=== PATIENT | female | born 1980 | race Hispanic/Latino ===

== ENCOUNTER 2016-09-11 21:00 | Inpatient (IN) | payer MEDICAID, OTHER ==
--- NOTE | 2016-09-11 21:17 | C.PDOC ---
History Of Present Illness Pt here for heroin detox. last used a few hours ago. No f/c/n/v. Non suicidal Time Seen by Provider: 09/11/16 21:10 Chief Complaint (Nursing): Substance Abuse History Per: Patient History/Exam Limitations: no limitations Onset/Duration Of Symptoms: Hrs Current Symptoms Are (Timing): Still Present Suicide/Self Injury Attempted (Context): None Modifying Factor(s): Other (heroin) Severity: None Pain Scale Rating Of: 0 Associated Symptoms: Anxiety Involuntary Hold By: None Recent travel outside of the [place]: No Additional History Per: Patient Past Medical History Reviewed: Historical Data, Nursing Documentation, Vital Signs Vital Signs: Last Vital Signs Temp 97.9 F 09/11/16 21:02 Pulse 89 09/11/16 21:02 Resp 16 09/11/16 21:02 BP 125/79 09/11/16 21:02 Pulse Ox 98 09/11/16 21:34 - Medical History PMH: Hepatitis (Hep C from using someone elses needle.) Denies: Diabetes, HIV, HTN, Seizures, Sexually Transmitted Disease - [facility] DETOXIFICATION SERVICES FOR SUBSTANCE ABUSE TREATMENT (06/06/15) Family History: States: No Known Family Hx - Social History Hx Alcohol Use: No Hx Substance Use: Yes (Heroine and cocaine) - Immunization History Hx Tetanus Toxoid Vaccination: No Hx Influenza Vaccination: No Hx Pneumococcal Vaccination: No Review Of Systems Constitutional: Negative for: Fever, Chills Eyes: Negative for: Redness ENT: Negative for: Nose Congestion Cardiovascular: Negative for: Chest Pain Respiratory: Negative for: Shortness of Breath Gastrointestinal: Negative for: Nausea, Vomiting Genitourinary: Negative for: Frequency Musculoskeletal: Negative for: Back Pain Skin: Positive for: Lesions (left lat leg, healing ulcers(denies skin popping)) Neurological: Negative for: Weakness Psych: Positive for: Anxiety Physical Exam - Physical Exam Appears: Non-toxic Skin: Warm, Dry Head: Normacephalic Eye(s): bilateral: Normal Inspection Oral Mucosa: Moist Neck: Supple Chest: Symmetrical Cardiovascular: Rhythm Regular Respiratory: No Rales, No Rhonchi, No Wheezing Gastrointestinal/Abdominal: Soft, No Tenderness Back: Normal Inspection Extremity: Normal ROM Extremity: Bilateral: Atraumatic, No Pedal Edema, Normal Color And Temperature, Normal ROM Neurological/Psych: Oriented x3, Normal Speech, Normal Cognition Gait: Steady ED Course And Treatment - Laboratory Results Result Diagrams: 09/11/16 21:55 09/11/16 21:55 O2 Sat by Pulse Oximetry: 98 Pulse Ox Interpretation: Normal Disposition Discussed With Dr.: Key Wise Comment: accepted the pt onher service at 12:01 AM Doctor Will See Patient In The: Hospital Counseled Patient/Family Regarding: Studies Performed, Diagnosis - Disposition Disposition: HOSPITALIZED Disposition Time: 21:17 Condition: FAIR - POA Present On Arrival: Poor Glycemic Control - Clinical Impression Clinical Impression: Drug abuse Decision To Admit - Pt Status Changed To: Hospital Disposition Of: Inpatient - Admit Certification Admit to Inpatient:: After my assessment, the patient will require hospitalization for at least two midnights. This is because of the severity of symptoms shown, intensity of services needed, and/or the medical risk in this patient being treated as an outpatient. - InPatient: Physician Admission Certification: I certify that this patient requires 2 or more midnights of care for the following reason:: After my assessment, the patient will require hospitalization for at least two midnights. This is because of the severity of symptoms shown, intensity of services needed, and/or the medical risk in this patient being treated as an outpatient. - . Bed Request Type: Detox Admitting Physician: Key Wise Patient Diagnosis: Drug abuse, Drug dependence
[2016-09-11 22:02] LABS: BASO # 0.1 K/uL (0.0-0.2); BASO % 1.1 % (0.0-2.0); EOS # 0.1 K/uL (0.0-0.7); HEMATOCRIT 36.3 % (34.0-47.0); MEAN CELL VOLUME 80.9 fL (81.0-99.0); MEAN CORPUSCULAR HEMOGLOBIN 26.7 pg (27.0-31.0); MEAN CORPUSCULAR HGB CONC 32.9 g/dL (33.0-37.0); MEAN PLATELET VOLUME 7.4 fL (7.2-11.7); MONO # 0.2 K/uL (0.0-0.8); MONO % 4.8 % (0.0-10.0); NRBC % 0.1 % (0.0-2.0); RED CELL DISTRIBUTION WIDTH 13.9 % (11.5-14.5)
[2016-09-11 22:03] LABS: RBC URINE 4 /hpf (0-3); URINE BACTERIA OCC (<OCC); URINE BILIRUBIN NEGATIVE (NEGATIVE); URINE BLOOD NEGATIVE (NEGATIVE); URINE COLOR Yellow (YELLOW); URINE GLUCOSE (UA) NORMAL (Normal); URINE KETONE TRACE mg/dL (NEGATIVE); URINE LEUKOCYTE ESTERASE NEG Leu/uL (Negative); URINE PROTEIN 1+ mg/dL (NEGATIVE); URINE UROBILINOGEN NORMAL mg/dL (0.2-1.0); WBC URINE 4 /hpf (0-5)
[2016-09-11 22:07] LABS: CHLORIDE 101 mmol/L (98-107); POTASSIUM 3.4 mmol/L (3.6-5.2); SODIUM 140 mmol/L (132-148)
[2016-09-11 22:09] LABS: GFR AFRICAN-AMERICAN > 60
[2016-09-11 22:10] LABS: ALB/GLOB RATIO 1.2 (1.0-2.1); ALKALINE PHOSPHATASE 69 U/L (38-126); ALT/SGPT 19 U/L (9-52); AST/SGOT 31 U/L (14-36); BILIRUBIN,TOTAL 0.6 mg/dL (0.2-1.3); BLOOD UREA NITROGEN 10 mg/dL (7-17); CALCIUM 8.7 mg/dl (8.6-10.4); CARBON DIOXIDE 26 mmol/L (22-30); GLUCOSE,RANDOM 110 mg/dL (65-105); TOTAL PROTEIN 7.7 g/dL (6.3-8.3)
[2016-09-11 22:11] LABS: ALCOHOL SERUM < 10 mg/dl (0-10)
[2016-09-12] MEDS ORDERED: Aluminum Hydroxide/Magnesium Hydroxide Susp (30 mL) PO PRN (00:40)
[2016-09-12 13:20] LABS: RBC URINE 3 /hpf (0-3); URINE BILIRUBIN NEGATIVE (NEGATIVE); URINE BLOOD NEGATIVE (NEGATIVE); URINE COLOR Yellow (YELLOW); URINE GLUCOSE (UA) NORMAL (Normal); URINE KETONE NEGATIVE (NEGATIVE); URINE LEUKOCYTE ESTERASE TRACE Leu/uL (Negative); URINE PROTEIN NEGATIVE (NEGATIVE); URINE UROBILINOGEN NORMAL mg/dL (0.2-1.0); WBC URINE 4 /hpf (0-5)
[2016-09-12 14:40] LABS: BASO % 0.3 % (0.0-2.0); EOS # 0.1 K/uL (0.0-0.7); EOS % 3.5 % (0.0-4.0); HEMATOCRIT 32.1 % (34.0-47.0); LYMPH # 2.1 K/uL (1.0-4.3); LYMPH % 49.2 % (20.0-40.0); MEAN CELL VOLUME 81.5 fL (81.0-99.0); MEAN CORPUSCULAR HEMOGLOBIN 26.9 pg (27.0-31.0); MEAN PLATELET VOLUME 7.9 fL (7.2-11.7); MONO # 0.3 K/uL (0.0-0.8); MONO % 6.7 % (0.0-10.0); RED CELL DISTRIBUTION WIDTH 14.7 % (11.5-14.5); WHITE BLOOD COUNT 4.2 K/uL (4.8-10.8)
[2016-09-12 14:52] LABS: CHLORIDE 101 mmol/L (98-107)
[2016-09-12 14:53] LABS: POTASSIUM 3.6 mmol/L (3.6-5.2); SODIUM 137 mmol/L (132-148)
[2016-09-12 14:55] LABS: ALB/GLOB RATIO 0.9 (1.0-2.1); ALKALINE PHOSPHATASE 65 U/L (38-126); ALT/SGPT 25 U/L (9-52); AST/SGOT 21 U/L (14-36); BILIRUBIN,TOTAL 0.4 mg/dL (0.2-1.3); BLOOD UREA NITROGEN 8 mg/dL (7-17); CARBON DIOXIDE 25 mmol/L (22-30); GFR AFRICAN-AMERICAN > 60; GLUCOSE,RANDOM 118 mg/dL (65-105); PHOSPHOROUS 4.2 mg/dL (2.5-4.5); TOTAL PROTEIN 6.1 g/dL (6.3-8.3)
[2016-09-12 14:56] LABS: CALCIUM 8.2 mg/dl (8.6-10.4)
--- NOTE | 2016-09-12 15:12 | PCM.PSYCH ---
Initial Psychiatric Evaluation - Initial Psychiatric Evaluation Type of Admission: Voluntary Legal Status: Capacity Chief Complaint (in patient's own words): "I don't feel good." History of Present Illness and Precipitating Events: The pt is seen, chart reviewed, case discussed with staff. This is a 36yo female here for opioid abuse and depression. She states that she lives alone at her own place in [place] and works as a dog hair clipper. She has a 9yo son who is being raised by her mother and she says shes from her sons father. The patient says that shes been "shooting and smoking" cocaine since age 13. She states that shes been using 70 bags of heroin a day for about 20 years and last used last night. She denies the use of alcohol, benzos, PCP and others but states she smokes cigarettes. She says shes been to [facility] and [facility] in the past but was "kicked out" due to her cocaine use. The patient denies S/I but complains of anxiety and manic episodes lasting about 1 hr. She denies ever overdosing on heroin and states shes never had a seizure. She states that she has a leg infection. On physical exam, numerous painful scabs were present on her left leg. She states that the largest scab has been present for almost 2 years. She denies any legal issues like probation. Past medical history: Hepatitis C Past psych history: Depression (no medications), vague hypomanic episodes Hospitalizations: Once at age 18 Family psych history: denies Family medical history: denies The pt is compliant with medications and reports no side-effects. Symptoms are improving but needs more time to stabilize. After care discussed, support and psychoeducation given. Current Medications: Active Medications Generic Name Dose Route Start Last Admin Trade Name Freq PRN Reason Stop Dose Admin Al Hydrox/Mg Hydrox/Simethicone 30 ml 09/12/16 00:40 Maalox 30 Ml PO TID PRN Indigestion / Heartburn Clindamycin HCl 300 mg 09/12/16 12:00 09/12/16 14:42 Cleocin PO 300 mg TID BANDAR Administration Clonidine HCl 0.1 mg 09/12/16 00:40 Catapres PO Q8 PRN COWS Score More or Equal to 5 Dicyclomine HCl 10 mg 09/12/16 00:41 Bentyl PO Q6 PRN Muscle spasm Hydroxyzine HCl 25 mg 09/12/16 00:41 09/12/16 01:53 Atarax PO 25 mg Q6 PRN Administration Anxiety Ibuprofen 400 mg 09/12/16 00:41 Motrin Tab PO Q6 PRN Pain, moderate (4-7) Loperamide HCl 2 mg 09/12/16 00:40 Imodium PO Q8 PRN Diarrhea Ondansetron HCl 4 mg 09/12/16 00:40 Zofran Tab PO Q8 PRN Nausea/Vomiting Pneumococcal Polyvalent Vaccine 0.5 ml 09/15/16 10:00 Pneumovax 23 Vaccine IM 09/15/16 10:01 .ONCE ONE Saccharomyces Boulardii 250 mg 09/12/16 18:00 Florastor PO BID BANDAR Trazodone HCl 50 mg 09/12/16 00:41 09/12/16 01:53 Desyrel PO 50 mg HS PRN Administration Insomnia Past Psychiatric History - Past Psychiatric History Previous Treatment History: None Pertinent Medical Hx (Current Medical&Sleep Prob, Allergies): Allergies Allergy/AdvReac Type Severity Reaction Status Date / Time haloperidol [From Haldol] Allergy Verified 06/05/15 23:44 haloperidol lactate Allergy Verified 06/05/15 23:44 [From Haldol] Review of Systems - Review of Systems Systems not reviewed;Unavailable: Uncooperative - Psychiatric Psychiatric: Anxiety, Depression, Panic Attacks. absent: Hallucinations, Homicidal Ideation, Suicidal Ideation Mental Status Examination - Personal Presentation Personal Presentation: Looks older than stated age - Affect Affect: Constricted - Motor Activity Motor Activity: Calm - Reliability in Providing Information Reliability in Providing Information: Fair - Speech Speech: Organized - Mood Mood: Neutral - Formal Thought Process Formal Thought Process: No Impairment - Obsessions/Compulsions Obsessions: No Compulsions: No - Cognitive Functions Orientation: Person, Place, Situation, Time Sensorium: Drowsy Estimate of Intelligence: Average Memory: Recent impaired, as evidence by: Inability to recall events of the day, Remote impaired as evidenced by: Inability to recall sig life events - Risk Risk: Withdrawal, Diminished functioning - Strength & Assets Inventory Strength & Assets Inventory: Life experience - Limitations Limitations: Living alone DSM 5 DX - DSM 5 DSM 5 Diagnosis: Opioid Withdrawal, Opioid use d/o - severe Cocaine use d/o - severe Depressive Disorder - Unspecified - Recommended/Plan of Treatment Treatment Recommendations and Plan of Treatment: Methadone detox for opioids As needed meds gabapentin for cocaine withdrawal Monitor depressive sxs and anxiety (gabapentin will help too) Medicine consult appreciated for skin infection Support and psychoeducation daily Attend groups and activities daily OK and CBT After care planning by counselor 33 min Projected ELOS: 6 days Prognosis: good with treatment - Smoking Cessation Smoking Cessation Initiated: Yes
--- NOTE | 2016-09-12 15:19 | CP.PCM.CON ---
<Nataly Romero - Last Filed: 09/12/16 15:15> History of Present Illness - History of Present Illness History of Present Illness: Medicine consult for Dr. Rivero: Medicine consulted by Dr. Larson for Leg wound 36 year old female with a past medical history of IV drug use, Hepatitis C, and Endocarditis (10 years ago) complains of left leg pain. She states that the pain is around a wound that she had for 2 years. She had surgery at [facility] to debride the wound 2 years ago but she claims that it never healed and she has been having pain ever since. She rates it a 7/10 and states that when she walks her leg swells. She states that the wound has not spread much but that there was redness around the wound. She admits to weakness in both feet but the left more than the right. She also admits to decreased sensation on the left more than the right. She has no specific PMD to follow up for her hepatitis but states she goes to a clinic in [place] on [facility]. She denies any fever, chills, sob, chest pain, palpitations, changes in bowels, changes in urination, recent travel, or sick contacts. PMHx- Hepatitis C, endocarditis, bronchitis Meds- denies Allergies- none PSHx- wound debridement, c section, left shoulder surgery FHx- denies Social Hx- admits to smoking 1 ppd of cigarettes, denies alcohol use in the past 5 years. Injects heroin and cocaine. Last use of cocaine and heroin were yesterday. She did 30 bags of heroin and 2 grams of cocaine. Review of Systems - Constitutional Constitutional: absent: Chills, Fever - EENT Eyes: absent: Blurred Vision, Change in Vision - Cardiovascular Cardiovascular: absent: Chest Pain, Chest Pain at Rest, Palpitations, Syncope - Respiratory Respiratory: absent: Cough, Dyspnea, Dyspnea on Exertion - Gastrointestinal Gastrointestinal: absent: Abdominal Pain, Constipation, Diarrhea, Nausea, Vomiting - Genitourinary Genitourinary: absent: Change in Urinary Stream, Difficulty Urinating - Neurological Neurological: Numbness. absent: Tingling, Weakness Additional comments: feet Past Patient History - Past Medical History & Family History Past Medical History?: Yes - Past Social History Smoking Status: Heavy Smoker > 10 Cigarettes Daily - CARDIAC Hx Cardiac Disorders: No Hx Hypertension: No - PULMONARY Hx Respiratory Disorders: No - NEUROLOGICAL Hx Seizures: Yes - HEENT Hx HEENT Problems: No - RENAL Hx Chronic Kidney Disease: No - ENDOCRINE/METABOLIC Hx Endocrine Disorders: No - HEMATOLOGICAL/ONCOLOGICAL Hx Hepatitis C: Yes Hx Human Immunodeficiency Virus (HIV): No - INTEGUMENTARY Hx Dermatological Problems: No - MUSCULOSKELETAL/RHEUMATOLOGICAL Hx Falls: No Hx Fractures: Yes - GASTROINTESTINAL Hx Gastrointestinal Disorders: No - GENITOURINARY/GYNECOLOGICAL Hx Genitourinary Disorders: No - PSYCHIATRIC Hx Substance Use: Yes (Heroine and cocaine) - SURGICAL HISTORY Hx Surgeries: Yes Hx Section: Yes Other/Comment: Left leg I&D, , Right shoulder metal plate was inserted. - ANESTHESIA Hx Anesthesia: Yes Hx Anesthesia Reactions: No Meds Allergies/Adverse Reactions: Allergies Allergy/AdvReac Type Severity Reaction Status Date / Time haloperidol [From Haldol] Allergy Verified 06/05/15 23:44 haloperidol lactate Allergy Verified 06/05/15 23:44 [From Haldol] - Medications Medications: Current Medications Al Hydrox/Mg Hydrox/Simethicone (Maalox 30 Ml) 30 ml PO TID PRN PRN Reason: Indigestion / Heartburn Clindamycin HCl (Cleocin) 300 mg PO TID BANDAR Last Admin: 09/12/16 14:42 Dose: 300 mg Clonidine HCl (Catapres) 0.1 mg PO Q8 PRN PRN Reason: COWS Score More or Equal to 5 Dicyclomine HCl (Bentyl) 10 mg PO Q6 PRN PRN Reason: Muscle spasm Hydroxyzine HCl (Atarax) 25 mg PO Q6 PRN PRN Reason: Anxiety Last Admin: 09/12/16 01:53 Dose: 25 mg Ibuprofen (Motrin Tab) 400 mg PO Q6 PRN PRN Reason: Pain, moderate (4-7) Loperamide HCl (Imodium) 2 mg PO Q8 PRN PRN Reason: Diarrhea Ondansetron HCl (Zofran Tab) 4 mg PO Q8 PRN PRN Reason: Nausea/Vomiting Pneumococcal Polyvalent Vaccine (Pneumovax 23 Vaccine) 0.5 ml IM .ONCE ONE Stop: 09/15/16 10:01 Saccharomyces Boulardii (Florastor) 250 mg PO BID BANDAR Trazodone HCl (Desyrel) 50 mg PO HS PRN PRN Reason: Insomnia Last Admin: 09/12/16 01:53 Dose: 50 mg Physical Exam - Constitutional Appears: Non-toxic, No Acute Distress - Head Exam Head Exam: ATRAUMATIC, NORMAL INSPECTION - Eye Exam Eye Exam: EOMI, Normal appearance, PERRL - ENT Exam ENT Exam: Mucous Membranes Moist - Respiratory Exam Respiratory Exam: Clear to Auscultation Bilateral, NORMAL BREATHING PATTERN. absent: Accessory Muscle Use, Chest Wall Tenderness, Respiratory Distress - Cardiovascular Exam Cardiovascular Exam: REGULAR RHYTHM, +S1, +S2. absent: Diastolic murmur, Systolic Murmur - GI/Abdominal Exam GI & Abdominal Exam: Normal Bowel Sounds, Soft. absent: Distended, Firm, Guarding, Tenderness - Extremities Exam Additional comments: brusies on leg, old scars, areas of excoriation, multiple healed wounds, left leg wound dressing c/d/i - Back Exam Back exam: NORMAL INSPECTION. absent: CVA tenderness (L), CVA tenderness (R), paraspinal tenderness - Neurological Exam Neurological exam: Alert, Oriented x3 - Psychiatric Exam Psychiatric exam: Anxious, Normal Affect, Normal Mood - Skin Skin Exam: Dry, Normal Color, Warm Results - Vital Signs Recent Vital Signs: Last Vital Signs Temp 97.6 F 09/12/16 13:00 Pulse 81 09/12/16 13:00 Resp 16 09/12/16 13:00 BP 103/62 09/12/16 13:00 Pulse Ox 100 09/12/16 13:00 - Labs Result Diagrams: 09/12/16 14:23 09/12/16 14:23 Labs: Laboratory Results - last 24 hr 09/12/16 09/12/16 09/12/16 13:05 14:23 14:23 WBC 4.2 L RBC 3.93 Hgb 10.6 L Hct 32.1 L MCV 81.5 MCH 26.9 L MCHC 33.0 RDW 14.7 H Plt Count 237 MPV 7.9 Neut % (Auto) 40.3 L Lymph % (Auto) 49.2 H [place] % (Auto) 6.7 Eos % (Auto) 3.5 Baso % (Auto) 0.3 Neut # 1.7 L Lymph # 2.1 Hendry # 0.3 Eos # 0.1 Baso # 0.0 Sodium 137 Potassium 3.6 Chloride 101 Carbon Dioxide 25 Anion Gap 15 BUN 8 Creatinine 0.9 Est GFR ( Amer) > 60 Est GFR (Non-Af Amer) > 60 Random Glucose 118 H Calcium 8.2 L Phosphorus 4.2 Magnesium 2.0 Total Bilirubin 0.4 AST 21 ALT 25 Alkaline Phosphatase 65 Total Protein 6.1 L Albumin 2.8 L D Globulin 3.2 Albumin/Globulin Ratio 0.9 L Urine Color Yellow Urine Clarity Clear Urine pH 6.0 Ur Specific [place] 1.014 Urine Protein Negative Urine Glucose (UA) Normal Urine Ketones Negative Urine Blood Negative Urine Nitrate Negative Urine Bilirubin Negative Urine Urobilinogen Normal Ur Leukocyte Esterase Trace Urine WBC (Auto) 4 Urine RBC (Auto) 3 Ur Squamous Epith Cells 5 Urine HCG, Qual Negative Assessment & Plan - Assessment and Plan (Free Text) Assessment: Left leg wound Wound care consulted Clindamycin 300mg PO TID Florastor BID f/u Xray, venous dopplers Routine labs UA negative U preg negative Afrebrile, no white count f/u blood cultures f/u Echo Hep C f/u Hep panel + per hx, no treatment Per Psych Management: Opiate withdrawal Detox UDS + Cocaine abuse Detox UDS + <Makayla Rivero V - Last Filed: 09/12/16 22:50> Meds - Medications Medications: Current Medications Al Hydrox/Mg Hydrox/Simethicone (Maalox 30 Ml) 30 ml PO TID PRN PRN Reason: Indigestion / Heartburn Clindamycin HCl (Cleocin) 300 mg PO TID [facility] Last Admin: 09/12/16 18:15 Dose: 300 mg Clonidine HCl (Catapres) 0.1 mg PO Q8 PRN PRN Reason: COWS Score More or Equal to 5 Dicyclomine HCl (Bentyl) 10 mg PO Q6 PRN PRN Reason: Muscle spasm Gabapentin (Neurontin) 100 mg PO TID [facility] Hydroxyzine HCl (Atarax) 25 mg PO Q6 PRN PRN Reason: Anxiety Last Admin: 09/12/16 01:53 Dose: 25 mg Ibuprofen (Motrin Tab) 400 mg PO Q6 PRN PRN Reason: Pain, moderate (4-7) Loperamide HCl (Imodium) 2 mg PO Q8 PRN PRN Reason: Diarrhea Methadone HCl (Methadone) 0 mg PO Q24H [facility] PRN Reason: Taper Stop: 09/17/16 08:59 Ondansetron HCl (Zofran Tab) 4 mg PO Q8 PRN PRN Reason: Nausea/Vomiting Pneumococcal Polyvalent Vaccine (Pneumovax 23 Vaccine) 0.5 ml IM .ONCE ONE Stop: 09/15/16 10:01 Saccharomyces Boulardii (Florastor) 250 mg PO BID BANDAR Last Admin: 09/12/16 18:16 Dose: 250 mg Trazodone HCl (Desyrel) 50 mg PO HS PRN PRN Reason: Insomnia Last Admin: 09/12/16 01:53 Dose: 50 mg Results - Vital Signs Recent Vital Signs: Last Vital Signs Temp 98.3 F 09/12/16 20:25 Pulse 57 L 09/12/16 20:25 Resp 16 09/12/16 20:25 BP 111/68 09/12/16 20:25 Pulse Ox 98 09/12/16 20:25 - Labs Result Diagrams: 09/12/16 14:23 09/12/16 14:23 Labs: Laboratory Results - last 24 hr 09/12/16 09/12/16 09/12/16 13:05 14:23 14:23 WBC 4.2 L RBC 3.93 Hgb 10.6 L Hct 32.1 L MCV 81.5 MCH 26.9 L MCHC 33.0 RDW 14.7 H Plt Count 237 MPV 7.9 Neut % (Auto) 40.3 L Lymph % (Auto) 49.2 H Hend[place] % (Auto) 6.7 Eos % (Auto) 3.5 Baso % (Auto) 0.3 Neut # 1.7 L Lymph # 2.1 [place] # 0.3 Eos # 0.1 Baso # 0.0 Sodium Potassium Chloride Carbon Dioxide Anion Gap BUN Creatinine Est GFR ( Amer) Est GFR (Non-Af Amer) Random Glucose Calcium Phosphorus Magnesium Total Bilirubin AST ALT Alkaline Phosphatase Total Protein Albumin Globulin Albumin/Globulin Ratio Urine Color Yellow Urine Clarity Clear Urine pH 6.0 Ur Specific [place] 1.014 Urine Protein Negative Urine Glucose (UA) Normal Urine Ketones Negative Urine Blood Negative Urine Nitrate Negative Urine Bilirubin Negative Urine Urobilinogen Normal Ur Leukocyte Esterase Trace Urine WBC (Auto) 4 Urine RBC (Auto) 3 Ur Squamous Epith Cells 5 Urine HCG, Qual Negative Hepatitis A IgM Ab Negative Hep Bs Antigen Negative Hep B Core IgM Ab Negative Hepatitis C Antibody Reactive H 09/12/16 14:23 WBC RBC Hgb Hct MCV MCH MCHC RDW Plt Count MPV Neut % (Auto) Lymph % (Auto) [place] % (Auto) Eos % (Auto) Baso % (Auto) Neut # Lymph # [place] # Eos # Baso # Sodium 137 Potassium 3.6 Chloride 101 Carbon Dioxide 25 Anion Gap 15 BUN 8 Creatinine 0.9 Est GFR ( Amer) > 60 Est GFR (Non-Af Amer) > 60 Random Glucose 118 H Calcium 8.2 L Phosphorus 4.2 Magnesium 2.0 Total Bilirubin 0.4 AST 21 ALT 25 Alkaline Phosphatase 65 Total Protein 6.1 L Albumin 2.8 L D Globulin 3.2 Albumin/Globulin Ratio 0.9 L Urine Color Urine Clarity Urine pH Ur Specific [place] Urine Protein Urine Glucose (UA) Urine Ketones Urine Blood Urine Nitrate Urine Bilirubin Urine Urobilinogen Ur Leukocyte Esterase Urine WBC (Auto) Urine RBC (Auto) Ur Squamous Epith Cells Urine HCG, Qual Hepatitis A IgM Ab Hep Bs Antigen Hep B Core IgM Ab Hepatitis C Antibody Attending/Attestation - Attestation I have personally seen and examined this patient.: Yes I have fully participated in the care of the patient.: Yes I have reviewed all pertinent clinical information: Yes Notes (Text): Patient seen, examined and case discussed with day-time resident. Consult required by psych regarding prominent left leg wound. Wound itself appears closed, no pus, no drainage, no blood observed. Wound care nurse at bedside evaluating wounds at bedside recommending Sabrina. Patient started on Clindamycin 300mg PO TID and probiotic. Patient's urine bhcg is negative. Xray of tibia-fibia completed: normal radiographs. Patient ordered for venous dopplers. Patient has a history of hepatitis C (not on therapy, current IV drug use) with a prior history of endocarditis (no cyclic fevers, no suspicion for endocarditis at this time). Assessment/Plan 1) Left leg wound * Wound care consulted * Start Clindamycin 300mg PO TID * Florastor 250mg BID * f/u Xray, venous dopplers * Routine labs * UA negative * Urine preg negative * Afrebrile, no white count * f/u blood cultures * f/u Echo 2) Hepatitis C * f/u Hep panel * + per hx, no treatment * f/u outpatient 3) Opiate withdrawal * Detox per psych * UDS + 4) Cocaine abuse * Detox per psych * UDS +
--- NOTE | 2016-09-12 15:29 | RAD ---
PROCEDURE: Radiographs of the left tibia and fibula. HISTORY: Xray - wound on L leg COMPARISON: None available. TECHNIQUE: Frontal and lateral views obtained. FINDINGS: BONES: No fracture or destructive lesion. No periosteal reaction appreciated. JOINT SPACES: Unremarkable. OTHER FINDINGS: None. IMPRESSION: Unremarkable radiographs of the left tibia and fibula.
[2016-09-12] MEDS: Saccharomyces Boulardi 250 mg Cap PO SCH (18:16)
[2016-09-13 08:57] LABS: CHLORIDE 105 mmol/L (98-107); SODIUM 138 mmol/L (132-148)
[2016-09-13 08:58] LABS: POTASSIUM 4.3 mmol/L (3.6-5.2)
[2016-09-13 08:59] LABS: GFR AFRICAN-AMERICAN > 60
[2016-09-13 09:00] LABS: ALKALINE PHOSPHATASE 64 U/L (38-126); ALT/SGPT 21 U/L (9-52); AST/SGOT 28 U/L (14-36); BILIRUBIN,TOTAL 0.6 mg/dL (0.2-1.3); BLOOD UREA NITROGEN 8 mg/dL (7-17); CARBON DIOXIDE 25 mmol/L (22-30); GLUCOSE,RANDOM 84 mg/dL (65-105); PHOSPHOROUS 4.6 mg/dL (2.5-4.5); TOTAL PROTEIN 6.5 g/dL (6.3-8.3)
[2016-09-13 09:01] LABS: CALCIUM 8.3 mg/dl (8.6-10.4); MAGNESIUM 2.4 mg/dL (1.6-2.3)
[2016-09-13] MEDS: Saccharomyces Boulardi 250 mg Cap PO SCH ×2 (10:26→18:52)
--- NOTE | 2016-09-13 14:41 | CP.PCM.PN ---
<Nataly Romero - Last Filed: 09/13/16 14:39> Subjective - Date & Time of Evaluation Date of Evaluation: 09/13/16 Time of Evaluation: 07:40 - Subjective Subjective: Patient seen and examined at bedside this morning. She states that she still has mild pain in her legs. Her left leg wound is covered by a dressing. She reports chills and said she "feels awful because I am detoxing". She is tolerating her diet without nausea/vomiting. She has not had a BM in a few days. She denies all other complaints such as fevers, chest pain, SOB, palpitations, weakness, or numbness. Objective - Vital Signs/Intake and Output Vital Signs (last 24 hours): Temp Pulse Resp BP Pulse Ox 98.1 F 48 L 16 108/70 97 09/13/16 14:19 09/13/16 14:19 09/13/16 14:19 09/13/16 14:19 09/13/16 14:19 - Medications Medications: Current Medications Al Hydrox/Mg Hydrox/Simethicone (Maalox 30 Ml) 30 ml PO TID PRN PRN Reason: Indigestion / Heartburn Clindamycin HCl (Cleocin) 300 mg PO TID [facility] Last Admin: 09/13/16 14:10 Dose: 300 mg Clonidine HCl (Catapres) 0.1 mg PO Q8 PRN PRN Reason: COWS Score More or Equal to 5 Dicyclomine HCl (Bentyl) 10 mg PO Q6 PRN PRN Reason: Muscle spasm Gabapentin (Neurontin) 100 mg PO TID [facility] Last Admin: 09/13/16 14:11 Dose: 100 mg Hydroxyzine HCl (Atarax) 25 mg PO Q6 PRN PRN Reason: Anxiety Last Admin: 09/13/16 01:35 Dose: 25 mg Ibuprofen (Motrin Tab) 400 mg PO Q6 PRN PRN Reason: Pain, moderate (4-7) Loperamide HCl (Imodium) 2 mg PO Q8 PRN PRN Reason: Diarrhea Methadone HCl (Methadone) 20 mg PO Q24H [facility] PRN Reason: Taper Stop: 09/17/16 08:59 Last Admin: 09/13/16 10:25 Dose: 20 mg Nicotine (Nicoderm Cq) 1 patch TD DAILY [facility] Ondansetron HCl (Zofran Tab) 4 mg PO Q8 PRN PRN Reason: Nausea/Vomiting Pneumococcal Polyvalent Vaccine (Pneumovax 23 Vaccine) 0.5 ml IM .ONCE ONE Stop: 09/15/16 10:01 Saccharomyces Boulardii (Florastor) 250 mg PO BID [facility] Last Admin: 09/13/16 10:26 Dose: 250 mg Trazodone HCl (Desyrel) 50 mg PO HS PRN PRN Reason: Insomnia Last Admin: 09/13/16 01:35 Dose: 50 mg - Labs Labs: 09/12/16 14:23 09/13/16 08:17 - Constitutional Appears: Non-toxic, No Acute Distress, Unkempt - Head Exam Head Exam: ATRAUMATIC, NORMAL INSPECTION - Eye Exam Eye Exam: EOMI, Normal appearance, PERRL - ENT Exam ENT Exam: Mucous Membranes Moist - Respiratory Exam Respiratory Exam: Clear to Ausculation Bilateral, NORMAL BREATHING PATTERN. absent: Accessory Muscle Use, Rales, Wheezes, Respiratory Distress - Cardiovascular Exam Cardiovascular Exam: REGULAR RHYTHM, +S1, +S2. absent: Diastolic murmur, Murmur - GI/Abdominal Exam GI & Abdominal Exam: Soft, Normal Bowel Sounds. absent: Distended, Firm, Guarding, Tenderness - Extremities Exam Extremities Exam: absent: Calf Tenderness Additional comments: L Leg wound dressing intact c/d/i - Back Exam Back Exam: NORMAL INSPECTION. absent: paraspinal tenderness - Neurological Exam Neurological Exam: Alert, Awake, Oriented x3 - Psychiatric Exam Psychiatric exam: Normal Affect, Normal Mood - Skin Skin Exam: Dry, Normal Color, Warm Assessment and Plan - Assessment and Plan (Free Text) Assessment: 1) Left leg wound * Wound care consulted - medihoney and dressing applied * Clindamycin 300mg PO TID * Florastor 250mg BID * Tib/Fib Xray - normal * f/u venous dopplers * Routine labs * UA negative * Urine preg negative * Afrebrile, no white count * f/u blood cultures * f/u Echo 2) Hepatitis C * f/u Hep panel * Reactive Hep C Antibody * f/u outpatient 3) Opiate withdrawal * Detox per psych * UDS + 4) Cocaine abuse * Detox per psych * UDS + <Makayla Rivero V - Last Filed: 09/13/16 21:35> Objective - Vital Signs/Intake and Output Vital Signs (last 24 hours): Temp Pulse Resp BP Pulse Ox 98.1 F 73 18 134/76 99 09/13/16 19:41 09/13/16 19:41 09/13/16 19:41 09/13/16 19:41 09/13/16 19:41 - Medications Medications: Current Medications Al Hydrox/Mg Hydrox/Simethicone (Maalox 30 Ml) 30 ml PO TID PRN PRN Reason: Indigestion / Heartburn Clindamycin HCl (Cleocin) 300 mg PO TID [facility] Last Admin: 09/13/16 18:52 Dose: 300 mg Clonidine HCl (Catapres) 0.1 mg PO Q8 PRN PRN Reason: COWS Score More or Equal to 5 Dicyclomine HCl (Bentyl) 10 mg PO Q6 PRN PRN Reason: Muscle spasm Gabapentin (Neurontin) 100 mg PO TID [facility] Last Admin: 09/13/16 18:52 Dose: 100 mg Hydroxyzine HCl (Atarax) 25 mg PO Q6 PRN PRN Reason: Anxiety Last Admin: 09/13/16 01:35 Dose: 25 mg Ibuprofen (Motrin Tab) 400 mg PO Q6 PRN PRN Reason: Pain, moderate (4-7) Loperamide HCl (Imodium) 2 mg PO Q8 PRN PRN Reason: Diarrhea Methadone HCl (Methadone) 20 mg PO Q24H [facility] PRN Reason: Taper Stop: 09/17/16 08:59 Last Admin: 09/13/16 10:25 Dose: 20 mg Nicotine (Nicoderm Cq) 1 patch TD DAILY [facility] Last Admin: 09/13/16 14:50 Dose: 1 patch Ondansetron HCl (Zofran Tab) 4 mg PO Q8 PRN PRN Reason: Nausea/Vomiting Pneumococcal Polyvalent Vaccine (Pneumovax 23 Vaccine) 0.5 ml IM .ONCE ONE Stop: 09/15/16 10:01 Quetiapine Fumarate (Seroquel) 100 mg PO HS [facility] Saccharomyces Boulardii (Florastor) 250 mg PO BID [facility] Last Admin: 09/13/16 18:52 Dose: 250 mg Trazodone HCl (Desyrel) 50 mg PO HS PRN PRN Reason: Insomnia Last Admin: 09/13/16 01:35 Dose: 50 mg - Labs Labs: 09/12/16 14:23 09/13/16 08:17 Attending/Attestation - Attestation I have personally seen and examined this patient.: Yes I have fully participated in the care of the patient.: Yes I have reviewed all pertinent clinical information, including history, physical exam and plan: Yes Notes (Text): Patient seen, examined and case discussed with day-time resident. Patient reports she feels awful at bedside and attributes to her withdrawals. Patient reports she is receiving metahoney per direction of wound care nurse. Pa Patient started on Clindamycin 300mg PO TID and probiotic. Patient completed venous dopplers and echocardiogram--report not available at this time. Patient has a history of hepatitis C (not on therapy, current IV drug use) with a prior history of endocarditis (no cyclic fevers, no suspicion for endocarditis at this time). Assessment/Plan 1) Left leg wound * Wound care consulted * Start Clindamycin 300mg PO TID * Florastor 250mg BID * venous dopplers pending * Routine labs * UA negative * Urine preg negative * Afrebrile, no white count * f/u blood cultures * f/u Echo 2) Hepatitis C * f/u Hep panel * + per hx, no treatment * f/u outpatient 3) Opiate withdrawal * Detox per psych * UDS + 4) Cocaine abuse * Detox per psych * UDS +
--- NOTE | 2016-09-13 15:28 | PCM.PYCHPN ---
Psychiatric Progress Note - Psychiatric Progress Note Patient seen today, length of contact: 18 min Patient Chief Complaint: "better than yesterday" Problems Identified/Issues Discussed: The pt is seen, chart reviewed, case discussed with staff. She states that shes tired and experiencing withdrawal symptoms such as nausea , vomiting, abdominal pain, and body aches. She denies S/I, H/I, and hallucinations. She complains of not being able to sleep, having woken up 5 times last night due to her symptoms. She states that she used to use Ambien at home to help her sleep. Her plan is to go to an outpatient facility. The pt is compliant with medications and reports no side-effects. Symptoms are improving but needs more time to stabilize. After care discussed, support and psychoeducation given. Medication Change: Yes (detox changes daily) Medical Record Reviewed: Yes Mental Status Examination - Cognitive Function Orientation: Person, Place, Situation, Time Memory: Impaired Attention: Poor Concentration: Poor Association: WNL Fund of Knowledge: WNL - Mood Mood: Anxious - Affect Affect: Constricted - Speech Speech: Appropriate - Formal Thought Process Formal Thought Process: No Impairment - Suicidal Ideation Suicidal Ideation: No - Homicidal Ideation Homicidal Ideation: No Goal/Treatment Plan - Goal/Treatment Plan Need for Continued Stay: Discharge may exacerbated symptoms, Severe functional impairment Progress Toward Problem(s) and Goals/Treatment Plan: Methadone detox for opioids As needed meds gabapentin for cocaine withdrawal Monitor depressive sxs and anxiety (gabapentin will help too) Medicine consult appreciated for skin infection Support and psychoeducation daily Attend groups and activities daily ME and CBT After care planning: rehab or MAT Estimated Date of D/C: 09/16/16
--- NOTE | 2016-09-13 22:40 | CARD ---
APPROVED REPORT EXAM: Two-dimensional and M-mode echocardiogram with Doppler and color Doppler. Other Information Quality : Good[employer] : INDICATION OPIOID AND COCAINE ABUSE DISORDER, IV DRUG ABUSE, PAST HX ENDOCARDITIS M-Mode DIMENSIONS RVDd2.79 (2.1-3.2cm)Left Atrium (MM)3.58 (2.5-4.0cm) IVSd0.82 (0.7-1.1cm)Aortic Root2.67 (2.2-3.7cm) LVDd5.13 (4.0-5.6cm)Aortic Cusp Exc.2.16 (1.5-2.0cm) PWd0.94 (0.7-1.1cm)FS (%) 25 % LVDs3.83 (2.0-3.8cm)LVEF (%)50 (>50%) Mitral Valve MV E Hksezrki90.8cm/sMV A Ghowrism34.8cm/sE/A ratio1.6 TDI E/Lateral E'0.0E/Medial E'0.0 Tricuspid Valve TR Peak [id number]/sTR Peak Gr.[id number] LEFT VENTRICLE The left ventricle is normal size. There is normal left ventricular wall thickness. The left ventricular function is moderate to markedly reduced. The left ventricular ejection fraction is about 30%. No regional wall motion abnormalities noted. The left ventricular diastolic function is normal. No left ventricle thrombus noted on this study. There is no ventricular septal defect visualized. There is no left ventricular aneurysm. There is no mass noted in the left ventricle. RIGHT VENTRICLE The right ventricle is normal size. There is normal right ventricular wall thickness. The right ventricular systolic function is mildly reduced. ATRIA The left atrium size is normal. The right atrium size is normal. The interatrial septum is aneurysmal. With color Doppler, a patent marina ovale is noted with left to right flow. AORTIC VALVE The aortic valve is normal in structure and function. No aortic regurgitation is present. There is no aortic valvular stenosis. There is no aortic valvular vegetation. MITRAL VALVE The mitral valve is normal in structure and function. There is no evidence of mitral valve prolapse. There is no mitral valve stenosis. There is trace mitral valve regurgitation noted. TRICUSPID VALVE The tricuspid valve is normal in function. On the atrial surface of the posterior leaflet, a small mobile calcification is noted. There is mild tricuspid valve regurgitation noted. There is no tricuspid valve prolapse or vegetation. There is no tricuspid valve stenosis. PULMONIC VALVE The pulmonary valve is normal in structure and function. There is no pulmonic valvular regurgitation. There is no pulmonic valvular stenosis. GREAT VESSELS The aortic root is normal in size. The ascending aorta is normal in size. The pulmonary artery is normal. The IVC is normal in size and collapses >50% with inspiration. PERICARDIAL EFFUSION The pericardium appears normal. There is no pleural effusion. <Conclusion> Moderate to makredly reduced overall LV dysfunction, diffuse. Mildly reduced RV function. On the atrial surface of the posterior leaflet, a small mobile calcification is noted. The interatrial septum is aneurysmal. With color Doppler, a patent marina ovale is noted with left to right flow.
[2016-09-14] MEDS: Saccharomyces Boulardi 250 mg Cap PO SCH ×2 (09:35→18:03)
--- NOTE | 2016-09-14 11:03 | VASCLAB ---
PROCEDURE: Lower Extremity Venous Duplex Exam. HISTORY: leg wound/swelling PRIORS: None. TECHNIQUE: Bilateral common femoral, femoral, popliteal and posterior tibial, peroneal and great saphenous veins were evaluated. Flow was assessed with color Doppler, compressibility, assessment of phasic flow and augmentation response. Report prepared by Daquan Vila, YUE, RVT FINDINGS: RIGHT: 1. Common Femoral Vein: 1.1. Compressibility - Fully compressible: Thrombus - None : Flow - Phasic: Augmentation -Normal: Reflux - None. 2. Femoral Vein: 2.1. Compressibility - Fully compressible: Thrombus - None : Flow - Phasic: Augmentation -Normal: Reflux - None. 3. Popliteal Vein: 3.1. Compressibility - Fully compressible: Thrombus - None : Flow - Phasic: Augmentation -Normal: Reflux - None. 4. Posterior Tibial Vein: 4.1. Compressibility - Fully compressible: Thrombus - None: Flow - Phasic: Augmentation -Normal: Reflux - None. 5. Peroneal Vein: 5.1. Compressibility - Fully compressible: Thrombus - None: Flow - Phasic: Augmentation -Normal: Reflux - None. 6. Great Saphenous Vein: 6.1. Compressibility - Fully compressible: Thrombus - None: Flow - Phasic: Augmentation - Normal: Reflux - None. LEFT: 1. Common Femoral Vein: 1.1. Compressibility - Fully compressible: Thrombus - None: Flow - Phasic: Augmentation -Normal: Reflux - None. 2. Femoral Vein: 2.1. Compressibility - Fully compressible: Thrombus - None: Flow - Phasic: Augmentation -Normal: Reflux - None. 3. Popliteal Vein: 3.1. Compressibility - Fully compressible: Thrombus - None : Flow - Phasic: Augmentation -Normal: Reflux - None. 4. Posterior Tibial Vein: 4.1. Compressibility - : Thrombus - : Flow - : Augmentation -: Reflux - . 5. Peroneal Vein: 5.1. Compressibility - : Thrombus - : Flow - : Augmentation -: Reflux - . 6. Great Saphenous Vein: 6.1. Compressibility - Fully compressible: Thrombus - None: Flow - Phasic: Augmentation - Normal: Reflux - None. OTHER FINDINGS: Right: None significant. Left: Due to bandage on the calf, the left peroneal and posterior tibial vein are not visualized.. IMPRESSION: Right: No evidence of deep or superficial vein thrombosis of the right lower extremity. Normal valve function noted of the right side. Left: No evidence of deep or superficial vein thrombosis of the left lower extremity. Normal valve function noted of the left side.
--- NOTE | 2016-09-14 13:15 | CP.PCM.CON ---
Addendum entered and electronically signed by Norma Melendez DO 09/15/16 13:16 : Nothing to drain from wounds. Continue local wound care. No surgical intervention necessary. Surgery will sign off at this time. Discussed with patient that she should follow up in [facility] for wounds. Original Note: <Saturnino Ferrari - Last Filed: 09/14/16 13:27> History of Present Illness - History of Present Illness History of Present Illness: Surgery: Dr. Brumfield CC: Chronic wound L leg HPI: 36F w. PMH of IVDA, Hep C, and endocarditis presented to ED for heroin detox. Surgery has been consulted for chronic leg wound. Pt states that she has had the wound on her L leg for about 2 yrs. Initially underwent I&D at [facility] [place]. She states that ever since operation the wound has not healed. She states that there is occasional drainage that is foul in odor. She states that she has pain. Pain is constant. Exacerbated w. walking. She has some parethesias in the affected leg. She denies FLOOD/blurred vision, no CP/palpitations, no SOB/cough, no change in appetite, no N/V/D, pt has occasional F/C. PMH: Hep C, endocariditis PSH: c section, left shoulder surgery Meds: MAR reviewed ALL: haloperidol Social: +Heroin/Cocaine/cigarettes, no ETOH Fhx: non-contributory Review of Systems - Review of Systems All systems: reviewed and no additional remarkable complaints except (HPI) Past Patient History - Past Medical History & Family History Past Medical History?: Yes - Past Social History Smoking Status: Heavy Smoker > 10 Cigarettes Daily - CARDIAC Hx Cardiac Disorders: No Hx Hypertension: No - PULMONARY Hx Respiratory Disorders: No - NEUROLOGICAL Hx Seizures: Yes - HEENT Hx HEENT Problems: No - RENAL Hx Chronic Kidney Disease: No - ENDOCRINE/METABOLIC Hx Endocrine Disorders: No - HEMATOLOGICAL/ONCOLOGICAL Hx Hepatitis C: Yes Hx Human Immunodeficiency Virus (HIV): No - INTEGUMENTARY Hx Dermatological Problems: No - MUSCULOSKELETAL/RHEUMATOLOGICAL Hx Falls: No Hx Fractures: Yes - GASTROINTESTINAL Hx Gastrointestinal Disorders: No - GENITOURINARY/GYNECOLOGICAL Hx Genitourinary Disorders: No - PSYCHIATRIC Hx Substance Use: Yes (Heroine and cocaine) - SURGICAL HISTORY Hx Surgeries: Yes Hx Section: Yes Other/Comment: Left leg I&D, , Right shoulder metal plate was inserted. - ANESTHESIA Hx Anesthesia: Yes Hx Anesthesia Reactions: No Meds Allergies/Adverse Reactions: Allergies Allergy/AdvReac Type Severity Reaction Status Date / Time haloperidol [From Haldol] Allergy Verified 06/05/15 23:44 haloperidol lactate Allergy Verified 06/05/15 23:44 [From Haldol] - Medications Medications: Current Medications Al Hydrox/Mg Hydrox/Simethicone (Maalox 30 Ml) 30 ml PO TID PRN PRN Reason: Indigestion / Heartburn Clindamycin HCl (Cleocin) 300 mg PO TID [facility] Last Admin: 09/14/16 09:34 Dose: 300 mg Clonidine HCl (Catapres) 0.1 mg PO Q8 PRN PRN Reason: COWS Score More or Equal to 5 Dicyclomine HCl (Bentyl) 10 mg PO Q6 PRN PRN Reason: Muscle spasm Gabapentin (Neurontin) 100 mg PO TID [facility] Last Admin: 09/14/16 09:34 Dose: 100 mg Hydroxyzine HCl (Atarax) 25 mg PO Q6 PRN PRN Reason: Anxiety Last Admin: 09/14/16 12:02 Dose: 25 mg Ibuprofen (Motrin Tab) 400 mg PO Q6 PRN PRN Reason: Pain, moderate (4-7) Loperamide HCl (Imodium) 2 mg PO Q8 PRN PRN Reason: Diarrhea Methadone HCl (Methadone) 15 mg PO Q24H [facility] PRN Reason: Taper Stop: 09/17/16 08:59 Last Admin: 09/14/16 09:34 Dose: 15 mg Nicotine (Nicoderm Cq) 1 patch TD DAILY [facility] Last Admin: 09/14/16 09:34 Dose: 1 patch Ondansetron HCl (Zofran Tab) 4 mg PO Q8 PRN PRN Reason: Nausea/Vomiting Pneumococcal Polyvalent Vaccine (Pneumovax 23 Vaccine) 0.5 ml IM .ONCE ONE Stop: 09/15/16 10:01 Quetiapine Fumarate (Seroquel) 100 mg PO HS [facility] Last Admin: 09/13/16 22:01 Dose: 100 mg Saccharomyces Boulardii (Florastor) 250 mg PO BID [facility] Last Admin: 09/14/16 09:35 Dose: 250 mg Trazodone HCl (Desyrel) 50 mg PO HS PRN PRN Reason: Insomnia Last Admin: 09/13/16 22:01 Dose: 50 mg Physical Exam - Constitutional Appears: Non-toxic, No Acute Distress - Head Exam Head Exam: ATRAUMATIC, NORMOCEPHALIC - Eye Exam Eye Exam: EOMI. absent: Scleral icterus - ENT Exam ENT Exam: Mucous Membranes Moist - Neck Exam Neck exam: Positive for: Full Rom - Respiratory Exam Respiratory Exam: NORMAL BREATHING PATTERN. absent: Accessory Muscle Use, Respiratory Distress - GI/Abdominal Exam GI & Abdominal Exam: Soft. absent: Tenderness - Extremities Exam Additional comments: Chronic non-healing wounds L leg. 1) Proximal Anterior lateral leg ~5x5 cm, brown necrotic base, foul smelling scant drainage, no induration/fluctuance, tender to palpation. Two additional wounds ~1x2 cm distal anterior leg with similar appearance, and one wound on posterior mid calf ~1x2 cm in similar appearance. - Neurological Exam Neurological exam: Alert, Oriented x3 - Psychiatric Exam Psychiatric exam: Normal Affect, Normal Mood Results - Vital Signs Recent Vital Signs: Last Vital Signs Temp 97.9 F 09/14/16 09:00 Pulse 57 L 09/14/16 09:00 Resp 18 09/14/16 09:00 BP 124/78 09/14/16 09:00 Pulse Ox 100 09/14/16 09:00 - Labs Result Diagrams: 09/12/16 14:23 09/13/16 08:17 Assessment & Plan - Assessment and Plan (Free Text) Assessment: 36F w. chronic non-healing wounds L leg -c/w local wound care and abx -recommend warm compress 20 min 2-3 times/day -no surgical intervention indicated at this time -d/w attending [facility]ega PGY2 <Howard Brumfield - Last Filed: 09/17/16 19:10> Meds - Medications Medications: Current Medications Al Hydrox/Mg Hydrox/Simethicone (Maalox 30 Ml) 30 ml PO TID PRN PRN Reason: Indigestion / Heartburn Clonidine HCl (Catapres) 0.1 mg PO Q8 PRN PRN Reason: COWS Score More or Equal to 5 Dicyclomine HCl (Bentyl) 10 mg PO Q6 PRN PRN Reason: Muscle spasm Gabapentin (Neurontin) 100 mg PO TID [facility] Last Admin: 09/17/16 18:51 Dose: 100 mg Hydroxyzine HCl (Atarax) 25 mg PO Q6 PRN PRN Reason: Anxiety Last Admin: 09/17/16 16:45 Dose: 25 mg Loperamide HCl (Imodium) 2 mg PO Q8 PRN PRN Reason: Diarrhea Nicotine (Nicoderm Cq) 1 patch TD DAILY [facility] Last Admin: 09/17/16 09:10 Dose: 1 patch Ondansetron HCl (Zofran Tab) 4 mg PO Q8 PRN PRN Reason: Nausea/Vomiting Quetiapine Fumarate (Seroquel) 100 mg PO HS [facility] Last Admin: 09/16/16 22:11 Dose: 100 mg Saccharomyces Boulardii (Florastor) 250 mg PO BID [facility] Last Admin: 09/17/16 18:51 Dose: 250 mg Trazodone HCl (Desyrel) 50 mg PO HS PRN PRN Reason: Insomnia Last Admin: 09/15/16 22:06 Dose: 50 mg Results - Vital Signs Recent Vital Signs: Last Vital Signs Temp 99.4 F 09/17/16 15:48 Pulse 71 09/17/16 15:48 Resp 20 09/17/16 15:48 BP 113/74 09/17/16 15:48 Pulse Ox 99 09/17/16 15:48 - Labs Result Diagrams: 09/15/16 15:57 09/15/16 11:47 Attending/Attestation - Attestation I have personally seen and examined this patient.: Yes I have fully participated in the care of the patient.: Yes I have reviewed all pertinent clinical information: Yes Notes (Text): 09/17/16 19:09 Pt was seen and examined at bedside on 09/15/16 Agree with above note and assessment Pt with Left leg wound Local wound care [facility] F/U Plan d.w pt in detail. C.w current mx
--- NOTE | 2016-09-14 13:16 | PCM.PYCHPN ---
Psychiatric Progress Note - Psychiatric Progress Note Patient seen today, length of contact: 18 min Patient Chief Complaint: "I feel fine." Problems Identified/Issues Discussed: The pt is seen, chart reviewed, case discussed with staff. The states that she is feeling fine but kept waking up during the night due to her anxiety. She denies S/I, H/I, and hallucinations. She complains that the Methadone 15 is not working because she still feels uneasy. She states that her plan when she leaves is to go home and possibly do the methadone program. She appears to be depressed, had a calm demeanor, and is slightly unkempt. patient was followed by medical because of leg wounds. The pt is compliant with medications and reports no side-effects. Symptoms are improving but needs more time to stabilize. After care discussed, support and psychoeducation given. Medication Change: Yes (detox changes daily) Medical Record Reviewed: Yes Mental Status Examination - Cognitive Function Orientation: Person, Place, Situation, Time Memory: Impaired Attention: Poor Concentration: Poor Association: WNL Fund of Knowledge: WNL - Mood Mood: Anxious - Affect Affect: Constricted - Speech Speech: Appropriate - Formal Thought Process Formal Thought Process: No Impairment - Suicidal Ideation Suicidal Ideation: No - Homicidal Ideation Homicidal Ideation: No Goal/Treatment Plan - Goal/Treatment Plan Need for Continued Stay: Discharge may exacerbated symptoms, Severe functional impairment Progress Toward Problem(s) and Goals/Treatment Plan: Opioid Withdrawal, Opioid use d/o - severe Cocaine use d/o - severe Depressive Disorder - Unspecified Methadone detox for opioids As needed meds gabapentin for cocaine withdrawal Monitor depressive sxs and anxiety (gabapentin will help too) Medicine consult appreciated for skin infection Support and psychoeducation daily Attend groups and activities daily SD and CBT After care planning by counselor Estimated Date of D/C: 09/16/16 - Smoking Cessation Smoking Cessation Initiated: No
--- NOTE | 2016-09-14 14:15 | CP.PCM.PN ---
<Nataly Romero - Last Filed: 09/14/16 14:08> Subjective - Date & Time of Evaluation Date of Evaluation: 09/14/16 Time of Evaluation: 08:00 - Subjective Subjective: Patient seen and examined at bedside this morning. She denies pain in her legs/ Her left leg wound is covered by a dressing. She reports feeling better today but still anxious. She is tolerating her diet without nausea/vomiting. She had small soft bowel movements yesterday. She denies all other complaints such as fevers, chest pain, SOB, palpitations, weakness, or numbness. Objective - Vital Signs/Intake and Output Vital Signs (last 24 hours): Temp Pulse Resp BP Pulse Ox 97.9 F 69 18 120/69 100 09/14/16 13:00 09/14/16 13:00 09/14/16 13:00 09/14/16 13:00 09/14/16 13:00 - Medications Medications: Current Medications Al Hydrox/Mg Hydrox/Simethicone (Maalox 30 Ml) 30 ml PO TID PRN PRN Reason: Indigestion / Heartburn Clindamycin HCl (Cleocin) 300 mg PO TID [facility] Last Admin: 09/14/16 13:42 Dose: 300 mg Clonidine HCl (Catapres) 0.1 mg PO Q8 PRN PRN Reason: COWS Score More or Equal to 5 Dicyclomine HCl (Bentyl) 10 mg PO Q6 PRN PRN Reason: Muscle spasm Gabapentin (Neurontin) 100 mg PO TID [facility] Last Admin: 09/14/16 13:42 Dose: 100 mg Hydroxyzine HCl (Atarax) 25 mg PO Q6 PRN PRN Reason: Anxiety Last Admin: 09/14/16 12:02 Dose: 25 mg Ibuprofen (Motrin Tab) 400 mg PO Q6 PRN PRN Reason: Pain, moderate (4-7) Loperamide HCl (Imodium) 2 mg PO Q8 PRN PRN Reason: Diarrhea Methadone HCl (Methadone) 15 mg PO Q24H [facility] PRN Reason: Taper Stop: 09/17/16 08:59 Last Admin: 09/14/16 09:34 Dose: 15 mg Nicotine (Nicoderm Cq) 1 patch TD DAILY [facility] Last Admin: 09/14/16 09:34 Dose: 1 patch Ondansetron HCl (Zofran Tab) 4 mg PO Q8 PRN PRN Reason: Nausea/Vomiting Pneumococcal Polyvalent Vaccine (Pneumovax 23 Vaccine) 0.5 ml IM .ONCE ONE Stop: 09/15/16 10:01 Quetiapine Fumarate (Seroquel) 100 mg PO HS [facility] Last Admin: 09/13/16 22:01 Dose: 100 mg Saccharomyces Boulardii (Florastor) 250 mg PO BID [facility] Last Admin: 09/14/16 09:35 Dose: 250 mg Trazodone HCl (Desyrel) 50 mg PO HS PRN PRN Reason: Insomnia Last Admin: 09/13/16 22:01 Dose: 50 mg - Labs Labs: 09/12/16 14:23 09/13/16 08:17 - Constitutional Appears: Non-toxic, No Acute Distress - Head Exam Head Exam: ATRAUMATIC, NORMAL INSPECTION - Eye Exam Eye Exam: EOMI, PERRL Pupil Exam: NORMAL ACCOMODATION - ENT Exam ENT Exam: Mucous Membranes Moist - Respiratory Exam Respiratory Exam: Clear to Ausculation Bilateral, NORMAL BREATHING PATTERN. absent: Accessory Muscle Use, Chest Wall Tenderness, Respiratory Distress - Cardiovascular Exam Cardiovascular Exam: REGULAR RHYTHM, +S1, +S2 - GI/Abdominal Exam GI & Abdominal Exam: Soft, Normal Bowel Sounds. absent: Distended, Firm, Guarding, Tenderness - Extremities Exam Extremities Exam: absent: Pedal Edema Additional comments: Chronic non-healing wounds L leg. 1) Proximal Anterior lateral leg ~5x5 cm, brown necrotic base, foul smelling scant drainage, no induration/fluctuance, tender to palpation. Two additional wounds ~1x2 cm distal anterior leg with similar appearance, and one wound on posterior mid calf ~1x2 cm in similar appearance. - Back Exam Back Exam: NORMAL INSPECTION. absent: CVA tenderness (L), CVA tenderness (R), paraspinal tenderness - Neurological Exam Neurological Exam: Alert, Awake, CN II-XII Intact, Oriented x3 - Psychiatric Exam Psychiatric exam: Anxious - Skin Skin Exam: Dry, Normal Color, Warm Assessment and Plan - Assessment and Plan (Free Text) Assessment: Left leg wound * Wound care consulted * Clindamycin 300mg PO TID (started 09/12) * Florastor 250mg BID * venous dopplers negative * Routine labs * UA negative * Urine preg negative * Afrebrile, no white count * Blood cultures - negative for 24 hours * General surgery consulted, Dr. Brumfield - help appreciated: no surgical intervention at this time Abnormal Echo * Echo: mild or markedly reduced LV dysfunction, mildly reduced RV function, atrial surface posterior leaf small calcification, atrial septum is aneurysmal patent foramen ovale with left to right flow * Cardiology consulted, Dr. Hill - help appreciated, f/u recs Hepatitis C * f/u Hep panel * + per hx, no treatment * f/u outpatient Opiate withdrawal * Detox per psych * UDS + Cocaine abuse * Detox per psych * UDS + Detox management per Psychiatry team. <Makayla Rivero V - Last Filed: 09/14/16 16:15> Objective - Vital Signs/Intake and Output Vital Signs (last 24 hours): Temp Pulse Resp BP Pulse Ox 97.9 F 69 18 120/69 100 09/14/16 13:00 09/14/16 13:00 09/14/16 13:00 09/14/16 13:00 09/14/16 13:00 - Medications Medications: Current Medications Al Hydrox/Mg Hydrox/Simethicone (Maalox 30 Ml) 30 ml PO TID PRN PRN Reason: Indigestion / Heartburn Clindamycin HCl (Cleocin) 300 mg PO TID [facility] Last Admin: 09/14/16 13:42 Dose: 300 mg Clonidine HCl (Catapres) 0.1 mg PO Q8 PRN PRN Reason: COWS Score More or Equal to 5 Dicyclomine HCl (Bentyl) 10 mg PO Q6 PRN PRN Reason: Muscle spasm Gabapentin (Neurontin) 100 mg PO TID [facility] Last Admin: 09/14/16 13:42 Dose: 100 mg Hydroxyzine HCl (Atarax) 25 mg PO Q6 PRN PRN Reason: Anxiety Last Admin: 09/14/16 12:02 Dose: 25 mg Ibuprofen (Motrin Tab) 400 mg PO Q6 PRN PRN Reason: Pain, moderate (4-7) Loperamide HCl (Imodium) 2 mg PO Q8 PRN PRN Reason: Diarrhea Methadone HCl (Methadone) 15 mg PO Q24H [facility] PRN Reason: Taper Stop: 09/17/16 08:59 Last Admin: 09/14/16 09:34 Dose: 15 mg Nicotine (Nicoderm Cq) 1 patch TD DAILY [facility] Last Admin: 09/14/16 09:34 Dose: 1 patch Ondansetron HCl (Zofran Tab) 4 mg PO Q8 PRN PRN Reason: Nausea/Vomiting Pneumococcal Polyvalent Vaccine (Pneumovax 23 Vaccine) 0.5 ml IM .ONCE ONE Stop: 09/15/16 10:01 Quetiapine Fumarate (Seroquel) 100 mg PO HS [facility] Last Admin: 09/13/16 22:01 Dose: 100 mg Saccharomyces Boulardii (Florastor) 250 mg PO BID [facility] Last Admin: 09/14/16 09:35 Dose: 250 mg Trazodone HCl (Desyrel) 50 mg PO HS PRN PRN Reason: Insomnia Last Admin: 09/13/16 22:01 Dose: 50 mg - Labs Labs: 09/12/16 14:23 09/13/16 08:17 Attending/Attestation - Attestation I have personally seen and examined this patient.: Yes I have fully participated in the care of the patient.: Yes I have reviewed all pertinent clinical information, including history, physical exam and plan: Yes Notes (Text): Patient seen, examined and case discussed with day-time resident. Patient reports she feels better. Patient had a discussion with counselor prior to my arrival. We had a discussion regarding patient is positive for hepatitis C; and patient reports her father recently 2 weeks ago from liver failure and asked questions regarding therapy. Explained to the patient she will need to follow- up with GI doctor/Infectious disease doctor who can do further workup. Patient also educated that hepatitis C is transferrable via body fluids including sharing needles. Patient started on Clindamycin 300mg PO TID and probiotic for leg wound coverage. Discussed echocardiogram results with the patient and consulted cardiology for further recommendations. Patient reports in the past she has had 2 instances of endocarditis, and patient understood that her IV drug use is a significant risk factor. General surgery consulted for further recommendations regarding leg wound. Assessment/Plan 1) Left leg wound * Wound care consulted-->help appreciated * General Surgery (Dr. Brumfield) consult-->help appreciated * Start Clindamycin 300mg PO TID (active since 09/12/16) * Florastor 250mg BID * venous dopplers b/l LE: negative * xrays: negative * UA negative * Urine preg negative * Afrebrile, no white count * Blood culture (09/12/16): no growth for 48 hours X2 * Echo (09/13/16): moderate to markedly reduced LV dysfunction, diffuse. Mildy reduced RV function. Atrial surface of posterior leaflet, a small mobile calcification is noted. Interatrial septum is aneurysmal. A patent hayder ovale is noted with left to right flow 2) Abnormal Echocardiogram * Echo (09/13/16): moderate to markedly reduced LV dysfunction, diffuse. Mildy reduced RV function. Atrial surface of posterior leaflet, a small mobile calcification is noted. Interatrial septum is aneurysmal. A patent hayder ovale is noted with left to right flow * Cardiology (Dr. Hill) consult--->help appreciated for further recommendations * Prior cocaine use noted 3) Hepatitis C * + per hx, no treatment * f/u outpatient with either GI/infectious disease * Patient is IV drug user 4) Opiate withdrawal * Detox per psych * UDS + 5) Cocaine abuse * Detox per psych * UDS +
--- NOTE | 2016-09-14 16:04 | CP.PCM.CON ---
<Enrike Jo - Last Filed: 09/14/16 17:13> History of Present Illness - History of Present Illness History of Present Illness: EP-Cardiology Consult Note for Dr. Sergio Jo PGY-1, Internal Medicine Consulted for: Abnormal Echo HPI: This is a 36 yo F with PMH of IVDA, Polysubstance abuse (Heroin, Alcohol, Cocaine), Hepatitis C, intermittent bronchitis, and Endocarditis (2 times) who initially presented to [facility] for detox. Medicine was consulted for LLE pain 2/2 prior wound (tx at [facility] per pt), and during the course of their care they obtained an Echo that was found to be abnormal ( please see Echo report for full details). We were consulted for abnormal Echo and possible further workup/intervention. Per pt, intermittent chest pain and shortness of breath with concurrent lightheadedness/dizziness persisting x2-3 years. Episodes triggered by rapidly moving from sitting to standing and/or significant exertion, but patient also reports some episodes while at rest. SOB when walking > 1 block. Active drug user, last use of heroin and cocaine on day of admission (09/12/16). Also complains of swelling in hands and legs, exacerbated with shooting up. Reports diagnosed with Hep C ~5 years prior, does not follow up with a clinic or take Hep C medications. PMH: as above PSH: multiple wound debridements, x1, left shoulder surgery with metal plate placement, unspecified LLE surgery FHx: [place] (father), Stroke (father?) SHx: 1 ppd cigarettes > 10 yrs, Active alcohol user (non-specific amount, claims active recently prior to admission). Injects heroin and cocaine regularly (last use day of admission, daily user) PMD: none Review of Systems - Review of Systems All systems: reviewed and no additional remarkable complaints except (as listed in HPI) Past Patient History - Past Medical History & Family History Past Medical History?: Yes - Past Social History Smoking Status: Heavy Smoker > 10 Cigarettes Daily - CARDIAC Hx Cardiac Disorders: No Hx Hypertension: No - PULMONARY Hx Respiratory Disorders: No - NEUROLOGICAL Hx Seizures: Yes - HEENT Hx HEENT Problems: No - RENAL Hx Chronic Kidney Disease: No - ENDOCRINE/METABOLIC Hx Endocrine Disorders: No - HEMATOLOGICAL/ONCOLOGICAL Hx Hepatitis C: Yes Hx Human Immunodeficiency Virus (HIV): No - INTEGUMENTARY Hx Dermatological Problems: No - MUSCULOSKELETAL/RHEUMATOLOGICAL Hx Falls: No Hx Fractures: Yes - GASTROINTESTINAL Hx Gastrointestinal Disorders: No - GENITOURINARY/GYNECOLOGICAL Hx Genitourinary Disorders: No - PSYCHIATRIC Hx Substance Use: Yes (Heroine and cocaine) - SURGICAL HISTORY Hx Surgeries: Yes Hx Section: Yes Other/Comment: Left leg I&D, , Right shoulder metal plate was inserted. - ANESTHESIA Hx Anesthesia: Yes Hx Anesthesia Reactions: No Meds Allergies/Adverse Reactions: Allergies Allergy/AdvReac Type Severity Reaction Status Date / Time haloperidol [From Haldol] Allergy Verified 06/05/15 23:44 haloperidol lactate Allergy Verified 06/05/15 23:44 [From Haldol] - Medications Medications: Current Medications Al Hydrox/Mg Hydrox/Simethicone (Maalox 30 Ml) 30 ml PO TID PRN PRN Reason: Indigestion / Heartburn Clindamycin HCl (Cleocin) 300 mg PO TID [facility] Last Admin: 09/14/16 13:42 Dose: 300 mg Clonidine HCl (Catapres) 0.1 mg PO Q8 PRN PRN Reason: COWS Score More or Equal to 5 Dicyclomine HCl (Bentyl) 10 mg PO Q6 PRN PRN Reason: Muscle spasm Gabapentin (Neurontin) 100 mg PO TID [facility] Last Admin: 09/14/16 13:42 Dose: 100 mg Hydroxyzine HCl (Atarax) 25 mg PO Q6 PRN PRN Reason: Anxiety Last Admin: 09/14/16 12:02 Dose: 25 mg Ibuprofen (Motrin Tab) 400 mg PO Q6 PRN PRN Reason: Pain, moderate (4-7) Loperamide HCl (Imodium) 2 mg PO Q8 PRN PRN Reason: Diarrhea Methadone HCl (Methadone) 15 mg PO Q24H [facility] PRN Reason: Taper Stop: 09/17/16 08:59 Last Admin: 09/14/16 09:34 Dose: 15 mg Nicotine (Nicoderm Cq) 1 patch TD DAILY [facility] Last Admin: 09/14/16 09:34 Dose: 1 patch Ondansetron HCl (Zofran Tab) 4 mg PO Q8 PRN PRN Reason: Nausea/Vomiting Pneumococcal Polyvalent Vaccine (Pneumovax 23 Vaccine) 0.5 ml IM .ONCE ONE Stop: 09/15/16 10:01 Quetiapine Fumarate (Seroquel) 100 mg PO HS [facility] Last Admin: 09/13/16 22:01 Dose: 100 mg Saccharomyces Boulardii (Florastor) 250 mg PO BID [facility] Last Admin: 09/14/16 09:35 Dose: 250 mg Trazodone HCl (Desyrel) 50 mg PO HS PRN PRN Reason: Insomnia Last Admin: 09/13/16 22:01 Dose: 50 mg Physical Exam - Constitutional Appears: Non-toxic, No Acute Distress, Older Than Stated Age, Chronically Ill - Head Exam Head Exam: ATRAUMATIC, NORMAL INSPECTION, NORMOCEPHALIC - Eye Exam Eye Exam: EOMI, Normal appearance. absent: Conjunctival injection, Scleral icterus Pupil Exam: absent: Irregular, Unequal - ENT Exam ENT Exam: Mucous Membranes Moist - Neck Exam Neck exam: Positive for: Full Rom. Negative for: Normal Inspection (multiple injection sites in the neck noted), Tenderness - Respiratory Exam Respiratory Exam: Clear to Auscultation Bilateral, NORMAL BREATHING PATTERN. absent: Accessory Muscle Use, Chest Wall Tenderness, Decreased Breath Sounds, Prolonged Expiratory Phase, Rales, Rhonchi, Wheezes - Cardiovascular Exam Cardiovascular Exam: REGULAR RHYTHM, RRR, +S1, +S2. absent: Bradycardia, Tachycardia, Irregular Rhythm, +S4 - GI/Abdominal Exam GI & Abdominal Exam: Diminished Bowel Sounds, Soft. absent: Distended, Firm, Hyperactive Bowel Sounds, Hypoactive Bowel Sounds, Normal Bowel Sounds, Rigid, Tenderness - Extremities Exam Extremities exam: Negative for: calf tenderness, normal inspection, pedal edema Additional comments: multiple poorly healed ulcers along multiple sites of bilateral LE, multiple likely injection sites along bilateral LE - Neurological Exam Neurological exam: Alert, Normal Gait, Oriented x3 Additional comments: no overt gait instability or imbalance on moving from sitting from standing - Psychiatric Exam Psychiatric exam: Normal Affect, Normal Mood - Skin Skin Exam: Dry, Intact, Normal Color, Warm Results - Vital Signs Recent Vital Signs: Last Vital Signs Temp 97.9 F 09/14/16 13:00 Pulse 69 09/14/16 13:00 Resp 18 09/14/16 13:00 BP 120/69 09/14/16 13:00 Pulse Ox 100 09/14/16 13:00 - Labs Result Diagrams: 09/12/16 14:23 09/13/16 08:17 Assessment & Plan (1) Abnormal echocardiogram Assessment and Plan: Echo 09/12/16: LVEF 50%, Moderate to markedly diffuse reduced overall LV dysfxn, Mildly reduced fxn, Small mobile calcification atrial on atrial surface of the posterior, interatrial septum is aneurysmal, PFO noted with left to right flow on color Doppler -Abnormal Echo, likely 2/2 regular IVDA/substance abuse and 2x endocarditis -Unlikely currently suffering from Endocarditis, Blood cultures x2 negative x48 hours, afebrile -Continue to monitor -Given LV dysfxn, need to obtain cardiac cath, Dr Witt consulted -Not a candidate for ICD given active IVDA -Avoid Beta-blockers in setting of cocaine abuse, want to avoid unopposed alpha blockade Status: Acute - Assessment and Plan (Free Text) Assessment: Case discussed with Dr. Hill. - Date & Time Date: 09/14/16 Time: 13:00 <Claribel Hill - Last Filed: 09/15/16 06:30> Meds - Medications Medications: Current Medications Al Hydrox/Mg Hydrox/Simethicone (Maalox 30 Ml) 30 ml PO TID PRN PRN Reason: Indigestion / Heartburn Clindamycin HCl (Cleocin) 300 mg PO TID [facility] Last Admin: 09/14/16 18:01 Dose: 300 mg Clonidine HCl (Catapres) 0.1 mg PO Q8 PRN PRN Reason: COWS Score More or Equal to 5 Dicyclomine HCl (Bentyl) 10 mg PO Q6 PRN PRN Reason: Muscle spasm Gabapentin (Neurontin) 100 mg PO TID [facility] Last Admin: 09/14/16 18:01 Dose: 100 mg Hydroxyzine HCl (Atarax) 25 mg PO Q6 PRN PRN Reason: Anxiety Last Admin: 09/14/16 18:02 Dose: 25 mg Ibuprofen (Motrin Tab) 400 mg PO Q6 PRN PRN Reason: Pain, moderate (4-7) Loperamide HCl (Imodium) 2 mg PO Q8 PRN PRN Reason: Diarrhea Methadone HCl (Methadone) 15 mg PO Q24H [facility] PRN Reason: Taper Stop: 09/17/16 08:59 Last Admin: 09/14/16 09:34 Dose: 15 mg Nicotine (Nicoderm Cq) 1 patch TD DAILY [facility] Last Admin: 09/14/16 09:34 Dose: 1 patch Ondansetron HCl (Zofran Tab) 4 mg PO Q8 PRN PRN Reason: Nausea/Vomiting Pneumococcal Polyvalent Vaccine (Pneumovax 23 Vaccine) 0.5 ml IM .ONCE ONE Stop: 09/15/16 10:01 Quetiapine Fumarate (Seroquel) 100 mg PO HS [facility] Last Admin: 09/14/16 21:31 Dose: 100 mg Saccharomyces Boulardii (Florastor) 250 mg PO BID [facility] Last Admin: 09/14/16 18:03 Dose: 250 mg Trazodone HCl (Desyrel) 50 mg PO HS PRN PRN Reason: Insomnia Last Admin: 09/14/16 21:31 Dose: 50 mg Results - Vital Signs Recent Vital Signs: Last Vital Signs Temp 98.1 F 09/15/16 05:36 Pulse 58 L 09/15/16 05:36 Resp 18 09/15/16 05:36 BP 97/61 L 09/15/16 05:36 Pulse Ox 97 09/15/16 05:36 - Labs Result Diagrams: 09/12/16 14:23 09/13/16 08:17 Attending/Attestation - Attestation I have personally seen and examined this patient.: Yes I have fully participated in the care of the patient.: Yes I have reviewed all pertinent clinical information: Yes Notes (Text): 09/15/16 06:30 will call interventional for cardiac catheterization
--- NOTE | 2016-09-15 06:34 | CP.PCM.PN ---
Subjective - Date & Time of Evaluation Date of Evaluation: 09/15/16 Time of Evaluation: 06:05 - Subjective Subjective: Pt tolerating po no cp Objective - Vital Signs/Intake and Output Vital Signs (last 24 hours): Temp Pulse Resp BP Pulse Ox 98.1 F 58 L 18 97/61 L 97 09/15/16 05:36 09/15/16 05:36 09/15/16 05:36 09/15/16 05:36 09/15/16 05:36 - Medications Medications: Current Medications Al Hydrox/Mg Hydrox/Simethicone (Maalox 30 Ml) 30 ml PO TID PRN PRN Reason: Indigestion / Heartburn Clindamycin HCl (Cleocin) 300 mg PO TID [facility] Last Admin: 09/14/16 18:01 Dose: 300 mg Clonidine HCl (Catapres) 0.1 mg PO Q8 PRN PRN Reason: COWS Score More or Equal to 5 Dicyclomine HCl (Bentyl) 10 mg PO Q6 PRN PRN Reason: Muscle spasm Gabapentin (Neurontin) 100 mg PO TID [facility] Last Admin: 09/14/16 18:01 Dose: 100 mg Hydroxyzine HCl (Atarax) 25 mg PO Q6 PRN PRN Reason: Anxiety Last Admin: 09/14/16 18:02 Dose: 25 mg Ibuprofen (Motrin Tab) 400 mg PO Q6 PRN PRN Reason: Pain, moderate (4-7) Loperamide HCl (Imodium) 2 mg PO Q8 PRN PRN Reason: Diarrhea Methadone HCl (Methadone) 15 mg PO Q24H [facility] PRN Reason: Taper Stop: 09/17/16 08:59 Last Admin: 09/14/16 09:34 Dose: 15 mg Nicotine (Nicoderm Cq) 1 patch TD DAILY [facility] Last Admin: 09/14/16 09:34 Dose: 1 patch Ondansetron HCl (Zofran Tab) 4 mg PO Q8 PRN PRN Reason: Nausea/Vomiting Pneumococcal Polyvalent Vaccine (Pneumovax 23 Vaccine) 0.5 ml IM .ONCE ONE Stop: 09/15/16 10:01 Quetiapine Fumarate (Seroquel) 100 mg PO HS [facility] Last Admin: 09/14/16 21:31 Dose: 100 mg Saccharomyces Boulardii (Florastor) 250 mg PO BID [facility] Last Admin: 09/14/16 18:03 Dose: 250 mg Trazodone HCl (Desyrel) 50 mg PO HS PRN PRN Reason: Insomnia Last Admin: 09/14/16 21:31 Dose: 50 mg - Labs Labs: 09/12/16 14:23 09/13/16 08:17 - Constitutional Appears: Older Than Stated Age - Head Exam Head Exam: ATRAUMATIC - Eye Exam Eye Exam: Normal appearance - ENT Exam ENT Exam: Mucous Membranes Moist - Respiratory Exam Respiratory Exam: NORMAL BREATHING PATTERN - Cardiovascular Exam Cardiovascular Exam: REGULAR RHYTHM - GI/Abdominal Exam GI & Abdominal Exam: Normal Bowel Sounds - Exam External exam: NORMAL EXTERNAL EXAM - Extremities Exam Extremities Exam: Normal Inspection Additional comments: sign of area where she has been using veins for drug abuse - Neurological Exam Neurological Exam: Alert, Awake - Psychiatric Exam Psychiatric exam: Normal Mood - Skin Skin Exam: Warm Assessment and Plan (1) Abnormal echocardiogram Assessment & Plan: Pt prob should get cath vs stress test for eval of severe myopathy Not a candidate for ICD due to IVDA. Not compliant and no vest candidate Will start on chf meds no beta blockers selective Status: Acute (2) Heroin abuse Status: Acute
--- NOTE | 2016-09-15 09:14 | CP.PCM.PN ---
<Rehana Stanley - Last Filed: 09/15/16 12:18> Subjective - Date & Time of Evaluation Date of Evaluation: 09/15/16 Time of Evaluation: 09:00 - Subjective Subjective: Medicine Progress Note- Dr. Cox's Service: Patient seen and examined at bedside this AM. LE wounds dressed this AM by surgery resident. Denies chest pain or SOB this AM. Admits to dizziness sometimes when she gets up. No nausea or vomiting. She is aware her "heart is at 50% capacity". Interventional cardiology evaluation pending for cardiac cath as per Dr. Mcallister. Denies fevers, chills, tremors, diarrhea, or trouble ambulation. Objective - Vital Signs/Intake and Output Vital Signs (last 24 hours): Temp Pulse Resp BP Pulse Ox 98.1 F 58 L 18 97/61 L 97 09/15/16 05:36 09/15/16 05:36 09/15/16 05:36 09/15/16 05:36 09/15/16 05:36 - Medications Medications: Current Medications Al Hydrox/Mg Hydrox/Simethicone (Maalox 30 Ml) 30 ml PO TID PRN PRN Reason: Indigestion / Heartburn Clindamycin HCl (Cleocin) 300 mg PO TID [facility] Last Admin: 09/14/16 18:01 Dose: 300 mg Clonidine HCl (Catapres) 0.1 mg PO Q8 PRN PRN Reason: COWS Score More or Equal to 5 Dicyclomine HCl (Bentyl) 10 mg PO Q6 PRN PRN Reason: Muscle spasm Gabapentin (Neurontin) 100 mg PO TID [facility] Last Admin: 09/14/16 18:01 Dose: 100 mg Hydroxyzine HCl (Atarax) 25 mg PO Q6 PRN PRN Reason: Anxiety Last Admin: 09/14/16 18:02 Dose: 25 mg Ibuprofen (Motrin Tab) 400 mg PO Q6 PRN PRN Reason: Pain, moderate (4-7) Loperamide HCl (Imodium) 2 mg PO Q8 PRN PRN Reason: Diarrhea Methadone HCl (Methadone) 10 mg PO Q24H [facility] PRN Reason: Taper Stop: 09/17/16 08:59 Last Admin: 09/14/16 09:34 Dose: 15 mg Nicotine (Nicoderm Cq) 1 patch TD DAILY [facility] Last Admin: 09/14/16 09:34 Dose: 1 patch Ondansetron HCl (Zofran Tab) 4 mg PO Q8 PRN PRN Reason: Nausea/Vomiting Pneumococcal Polyvalent Vaccine (Pneumovax 23 Vaccine) 0.5 ml IM .ONCE ONE Stop: 09/15/16 10:01 Quetiapine Fumarate (Seroquel) 100 mg PO HS [facility] Last Admin: 09/14/16 21:31 Dose: 100 mg Saccharomyces Boulardii (Florastor) 250 mg PO BID [facility] Last Admin: 09/14/16 18:03 Dose: 250 mg Trazodone HCl (Desyrel) 50 mg PO HS PRN PRN Reason: Insomnia Last Admin: 09/14/16 21:31 Dose: 50 mg - Labs Labs: 09/12/16 14:23 09/13/16 08:17 - Constitutional Appears: No Acute Distress, Cachectic, Chronically Ill - Head Exam Head Exam: NORMAL INSPECTION, NORMOCEPHALIC - Eye Exam Eye Exam: EOMI, Normal appearance - ENT Exam ENT Exam: Mucous Membranes Moist - Neck Exam Neck Exam: Full ROM - Respiratory Exam Respiratory Exam: Clear to Ausculation Bilateral, NORMAL BREATHING PATTERN - Cardiovascular Exam Cardiovascular Exam: REGULAR RHYTHM, +S1, +S2. absent: Murmur - GI/Abdominal Exam GI & Abdominal Exam: Soft. absent: Distended, Tenderness - Extremities Exam Extremities Exam: Full ROM. absent: Pedal Edema Additional comments: Multiple lesions, open, with some drainage and erythematous over LLE. - Back Exam Back Exam: Full ROM - Neurological Exam Neurological Exam: Alert, Awake, Oriented x3 - Psychiatric Exam Psychiatric exam: Normal Affect, Normal Mood - Skin Skin Exam: Dry, Normal Color, Warm Additional comments: +picking lesions over face, and all extremities. Assessment and Plan - Assessment and Plan (Free Text) Assessment: Left leg wound * Wound care consulted. * General surgery consulted, Dr. Brumfield - help appreciated: no surgical intervention at this time. Dressings changed this AM. * Clindamycin 300mg PO TID (started 09/12) * Florastor 250mg BID * venous dopplers negative * Routine labs * UA negative * Urine preg negative * Blood cultures - negative for 48 hours Abnormal Echo * Echo: mild or markedly reduced LV dysfunction, mildly reduced RV function, atrial surface posterior leaf small calcification, atrial septum is aneurysmal patent foramen ovale with left to right flow. * Cardio consult placed- Dr. Hill- help appreciated. Patient with Hx of endocarditis X2 * Dr. Hill recommended intercentional cardio consult (Dr. Witt) for cardiac cath. * f/u Dr. Witt recs Hepatitis C * + per hx, no treatment * she will need to follow-up with GI doctor/Infectious disease doctor as outpatient. Opiate withdrawal * Detox per psych * UDS + Cocaine abuse * Detox per psych * UDS + Detox management per Psychiatry team. <Makayla Rivero V - Last Filed: 09/15/16 20:41> Objective - Vital Signs/Intake and Output Vital Signs (last 24 hours): Temp Pulse Resp BP Pulse Ox 97.9 F 71 18 110/62 99 09/15/16 20:17 09/15/16 20:17 09/15/16 20:17 09/15/16 20:17 09/15/16 20:17 - Medications Medications: Current Medications Al Hydrox/Mg Hydrox/Simethicone (Maalox 30 Ml) 30 ml PO TID PRN PRN Reason: Indigestion / Heartburn Clindamycin HCl (Cleocin) 300 mg PO TID [facility] Last Admin: 09/15/16 19:02 Dose: 300 mg Clonidine HCl (Catapres) 0.1 mg PO Q8 PRN PRN Reason: COWS Score More or Equal to 5 Dicyclomine HCl (Bentyl) 10 mg PO Q6 PRN PRN Reason: Muscle spasm Gabapentin (Neurontin) 100 mg PO TID [facility] Last Admin: 09/15/16 19:02 Dose: 100 mg Hydroxyzine HCl (Atarax) 25 mg PO Q6 PRN PRN Reason: Anxiety Last Admin: 09/15/16 19:02 Dose: 25 mg Ibuprofen (Motrin Tab) 400 mg PO Q6 PRN PRN Reason: Pain, moderate (4-7) Loperamide HCl (Imodium) 2 mg PO Q8 PRN PRN Reason: Diarrhea Methadone HCl (Methadone) 10 mg PO Q24H [facility] PRN Reason: Taper Stop: 09/17/16 08:59 Last Admin: 09/15/16 09:40 Dose: 10 mg Nicotine (Nicoderm Cq) 1 patch TD DAILY [facility] Last Admin: 09/15/16 09:40 Dose: 1 patch Ondansetron HCl (Zofran Tab) 4 mg PO Q8 PRN PRN Reason: Nausea/Vomiting Quetiapine Fumarate (Seroquel) 100 mg PO HS [facility] Last Admin: 09/14/16 21:31 Dose: 100 mg Saccharomyces Boulardii (Florastor) 250 mg PO BID [facility] Last Admin: 09/15/16 19:03 Dose: 250 mg Trazodone HCl (Desyrel) 50 mg PO HS PRN PRN Reason: Insomnia Last Admin: 09/14/16 21:31 Dose: 50 mg - Labs Labs: 09/15/16 15:57 09/15/16 11:47 PT 11.1 SECONDS (9.7-12.2) 09/15/16 11:47 INR 1.0 09/15/16 11:47 APTT 35 SECONDS (21-34) H 09/15/16 11:47 Attending/Attestation - Attestation I have personally seen and examined this patient.: Yes I have fully participated in the care of the patient.: Yes I have reviewed all pertinent clinical information, including history, physical exam and plan: Yes Notes (Text): Patient seen, examined and case discussed with day-time resident. Patient seen in detox this morning. Patient reports shortness of breathe. Patient is amenable for awaiting evaluation for possible cardiac cath. Patient has not seen Dr. Witt yet. Per discussion with psych, patient to complete detox tomorrow. Patient reports she would like to get the catherization, she understands that her heart is affected by her IV drug use and her prior histories of endocarditis. Assessment/Plan 1) Left leg wound * Wound care consulted-->help appreciated * General Surgery (Dr. Brumfield) consult-->help appreciated-->no intervention * Start Clindamycin 300mg PO TID (active since 09/12/16) * Florastor 250mg BID * venous dopplers b/l LE: negative * xrays: negative * UA negative * Urine preg negative * Afrebrile, no white count * Blood culture (09/12/16): no growth for 48 hours X2 * Echo (09/13/16): moderate to markedly reduced LV dysfunction, diffuse. Mildy reduced RV function. Atrial surface of posterior leaflet, a small mobile calcification is noted. Interatrial septum is aneurysmal. A patent hayder ovale is noted with left to right flow 2) Abnormal Echocardiogram * Echo (09/13/16): moderate to markedly reduced LV dysfunction, diffuse. Mildy reduced RV function. Atrial surface of posterior leaflet, a small mobile calcification is noted. Interatrial septum is aneurysmal. A patent hayder ovale is noted with left to right flow * Cardiology (Dr. Hill) consult--->Recommend possible cardiac cath, pending evaluation by back seam stitcher * Cardiology (Dr. Witt) consult-->awaiting evaluation * Prior cocaine use noted 3) Hepatitis C * + per hx, no treatment * f/u outpatient with either GI/infectious disease * Patient is IV drug user 4) Opiate withdrawal * Detox per psych * UDS + * Will finish detox tomorrow 5) Cocaine abuse * Detox per psych * UDS +
[2016-09-15] MEDS: Saccharomyces Boulardi 250 mg Cap PO SCH ×2 (09:40→19:03)
[2016-09-15] MEDS ORDERED: Pneumococcal 23-Valent Vaccine IM ONE (10:00)
[2016-09-15 12:07] LABS: CHLORIDE 104 mmol/L (98-107); SODIUM 138 mmol/L (132-148)
[2016-09-15 12:09] LABS: ALKALINE PHOSPHATASE 66 U/L (38-126); AST/SGOT 26 U/L (14-36); BILIRUBIN,TOTAL 0.7 mg/dL (0.2-1.3); CARBON DIOXIDE 21 mmol/L (22-30); GFR AFRICAN-AMERICAN > 60; POTASSIUM 4.9 mmol/L (3.6-5.2); TOTAL PROTEIN 7.9 g/dL (6.3-8.3)
[2016-09-15 12:10] LABS: ALT/SGPT 12 U/L (9-52); BLOOD UREA NITROGEN 12 mg/dL (7-17); CALCIUM 8.9 mg/dl (8.6-10.4); GLUCOSE,RANDOM 87 mg/dL (65-105); MAGNESIUM 2.3 mg/dL (1.6-2.3); PHOSPHOROUS 3.8 mg/dL (2.5-4.5)
--- NOTE | 2016-09-15 13:06 | RAD ---
HISTORY: Substance abuse, baseline. COMPARISON: No prior. TECHNIQUE: Chest PA and lateral FINDINGS: LUNGS: No active pulmonary disease. PLEURA: No significant pleural effusion identified. No pneumothorax apparent. CARDIOVASCULAR: Normal. OSSEOUS STRUCTURES: No significant abnormalities. VISUALIZED UPPER ABDOMEN: Normal. OTHER FINDINGS: None. IMPRESSION: No active disease.
[2016-09-15 16:08] LABS: BASO % 0.4 % (0.0-2.0); EOS # 0.1 K/uL (0.0-0.7); EOS % 1.7 % (0.0-4.0); HEMATOCRIT 38.9 % (34.0-47.0); LYMPH # 2.1 K/uL (1.0-4.3); LYMPH % 39.4 % (20.0-40.0); MEAN CORPUSCULAR HEMOGLOBIN 26.9 pg (27.0-31.0); MEAN CORPUSCULAR HGB CONC 32.8 g/dL (33.0-37.0); MEAN PLATELET VOLUME 8.8 fL (7.2-11.7); MONO # 0.2 K/uL (0.0-0.8); MONO % 4.4 % (0.0-10.0); NRBC % 0.1 % (0.0-2.0); RED CELL DISTRIBUTION WIDTH 14.7 % (11.5-14.5); WHITE BLOOD COUNT 5.2 K/uL (4.8-10.8)
--- NOTE | 2016-09-15 18:06 | PCM.PYCHPN ---
Psychiatric Progress Note - Psychiatric Progress Note Patient seen today, length of contact: 15 minutes Patient Chief Complaint: I'm feeling better Problems Identified/Issues Discussed: Patient seen. Chart reviewed. Case discussed with the staff. Issues related to illness and treatment were discussed with the patient. Reported compliant with treatment with no adverse affects. Tolerating treatment very well. Reported feeling better with less withdrawal symptoms. Patient was evaluated by cardiology and is scheduled for cardiac cath. Patient will get her last dose of methadone 5 mg tomorrow. Patient may be transferred to medical floor for evaluation before going to cardiac Cath. At the time of evaluation, patient was awake alert oriented 3, had no delusions, no auditory or visual hallucinations , no suicidal ideations or homicidal ideations. Medical Problems: Decreased ejection fraction Diagnostic Results: Reviewed Medication Change: No Medical Record Reviewed: Yes Consults ordered or reviewed: Reviewed Mental Status Examination - Cognitive Function Orientation: Person, Place, Situation, Time Memory: Intact Attention: WNL Concentration: WNL Association: WNL Fund of Knowledge: WNL Decription of patient's judgement and insights: Fair - Mood Mood: Anxious - Affect Affect: Other (Appropriate) - Speech Speech: Appropriate - Formal Thought Process Formal Thought Process: No Impairment Psychotic Thoughts and Behaviors: None - Suicidal Ideation Suicidal Ideation: No - Homicidal Ideation Homicidal Ideation: No Goal/Treatment Plan - Goal/Treatment Plan Need for Continued Stay: Remain at risks for inpatient hospitalization, Discharge may exacerbated symptoms, Severe functional impairment Progress Toward Problem(s) and Goals/Treatment Plan: Patient education Supportive therapy Continue treatment as before Estimated Date of D/C: 09/16/16 - Smoking Cessation Smoking Cessation Initiated: Yes
--- NOTE | 2016-09-16 00:20 | CP.PCM.PN ---
<Yunior Hoskins - Last Filed: 09/16/16 00:26> Subjective - Date & Time of Evaluation Date of Evaluation: 09/16/16 Time of Evaluation: 00:20 - Subjective Subjective: Medicine progress note. Attending: Dr. Rivero Patient seen and examined at bedside. Lower extremity wounds dressed this AM by surgery resident. Denies chest pain or shortness of breath. Admits to dizziness sometimes when she gets up. No nausea or vomiting. Interventional cardiology evaluation pending for cardiac cath as per Dr. Hill. Denies fevers, chills, tremors, diarrhea, or trouble with ambulation. Does report some anxiety. Objective - Vital Signs/Intake and Output Vital Signs (last 24 hours): Temp Pulse Resp BP Pulse Ox 97.9 F 71 18 110/62 99 09/15/16 20:17 09/15/16 20:17 09/15/16 20:17 09/15/16 20:17 09/15/16 20:17 - Medications Medications: Current Medications Al Hydrox/Mg Hydrox/Simethicone (Maalox 30 Ml) 30 ml PO TID PRN PRN Reason: Indigestion / Heartburn Clindamycin HCl (Cleocin) 300 mg PO TID [facility] Last Admin: 09/15/16 19:02 Dose: 300 mg Clonidine HCl (Catapres) 0.1 mg PO Q8 PRN PRN Reason: COWS Score More or Equal to 5 Dicyclomine HCl (Bentyl) 10 mg PO Q6 PRN PRN Reason: Muscle spasm Gabapentin (Neurontin) 100 mg PO TID [facility] Last Admin: 09/15/16 19:02 Dose: 100 mg Hydroxyzine HCl (Atarax) 25 mg PO Q6 PRN PRN Reason: Anxiety Last Admin: 09/15/16 19:02 Dose: 25 mg Ibuprofen (Motrin Tab) 400 mg PO Q6 PRN PRN Reason: Pain, moderate (4-7) Loperamide HCl (Imodium) 2 mg PO Q8 PRN PRN Reason: Diarrhea Methadone HCl (Methadone) 10 mg PO Q24H [facility] PRN Reason: Taper Stop: 09/17/16 08:59 Last Admin: 09/15/16 09:40 Dose: 10 mg Nicotine (Nicoderm Cq) 1 patch TD DAILY [facility] Last Admin: 09/15/16 09:40 Dose: 1 patch Ondansetron HCl (Zofran Tab) 4 mg PO Q8 PRN PRN Reason: Nausea/Vomiting Quetiapine Fumarate (Seroquel) 100 mg PO HS [facility] Last Admin: 09/15/16 22:06 Dose: 100 mg Saccharomyces Boulardii (Florastor) 250 mg PO BID [facility] Last Admin: 09/15/16 19:03 Dose: 250 mg Trazodone HCl (Desyrel) 50 mg PO HS PRN PRN Reason: Insomnia Last Admin: 09/15/16 22:06 Dose: 50 mg - Labs Labs: 09/15/16 15:57 09/15/16 11:47 PT 11.1 SECONDS (9.7-12.2) 09/15/16 11:47 INR 1.0 09/15/16 11:47 APTT 35 SECONDS (21-34) H 09/15/16 11:47 - Constitutional Appears: Other (Patient refused physical exam.) Assessment and Plan - Assessment and Plan (Free Text) Assessment: This is a 36 yo female with history of opioid abuse, hepatitis c, and depression presenting with Left leg wound * Wound care consulted. * General surgery consulted, Dr. Brumfield - help appreciated: no surgical intervention at this time. Dressings changed morning of 09/15 * Clindamycin 300mg PO TID (started 09/12) * Florastor 250mg PO BID * venous dopplers negative * Routine labs * UA negative * Urine negative * Blood cultures - negative x 3 days * x rays negative Abnormal Echo * Echo: mild or markedly reduced LV dysfunction, mildly reduced RV function, atrial surface posterior leaf small calcification, atrial septum is aneurysmal patent foramen ovale with left to right flow. * Cardio consult placed- Dr. Hill- help appreciated. Patient with History of endocarditis X2 * Dr. Hill recommended interventional cardiology consult (Dr. Witt) for cardiac cath. * follow up Dr. Witt recs History of Hepatitis C * positive per history, no treatment * she will need to follow-up with GI doctor/Infectious disease doctor as outpatient. Opiate withdrawal * Detox per psych * Urine drug screen + Cocaine abuse * Detox per psych * Urine drug screen + Detox management per Psychiatry team. to be discussed with Dr. Rivero. <Makayla Rivero V - Last Filed: 09/16/16 09:26> Objective - Vital Signs/Intake and Output Vital Signs (last 24 hours): Temp Pulse Resp BP Pulse Ox 97.8 F 72 18 90/60 L 99 09/16/16 05:17 09/16/16 05:17 09/16/16 05:17 09/16/16 05:17 09/16/16 05:17 - Medications Medications: Current Medications Al Hydrox/Mg Hydrox/Simethicone (Maalox 30 Ml) 30 ml PO TID PRN PRN Reason: Indigestion / Heartburn Clindamycin HCl (Cleocin) 300 mg PO TID [facility] Last Admin: 09/16/16 09:01 Dose: 300 mg Clonidine HCl (Catapres) 0.1 mg PO Q8 PRN PRN Reason: COWS Score More or Equal to 5 Dicyclomine HCl (Bentyl) 10 mg PO Q6 PRN PRN Reason: Muscle spasm Gabapentin (Neurontin) 100 mg PO TID [facility] Last Admin: 09/16/16 09:01 Dose: 100 mg Hydroxyzine HCl (Atarax) 25 mg PO Q6 PRN PRN Reason: Anxiety Last Admin: 09/15/16 19:02 Dose: 25 mg Ibuprofen (Motrin Tab) 400 mg PO Q6 PRN PRN Reason: Pain, moderate (4-7) Loperamide HCl (Imodium) 2 mg PO Q8 PRN PRN Reason: Diarrhea Methadone HCl (Methadone) 5 mg PO Q24H [facility] PRN Reason: Taper Stop: 09/17/16 08:59 Last Admin: 09/16/16 09:01 Dose: 5 mg Nicotine (Nicoderm Cq) 1 patch TD DAILY [facility] Last Admin: 09/16/16 09:01 Dose: 1 patch Ondansetron HCl (Zofran Tab) 4 mg PO Q8 PRN PRN Reason: Nausea/Vomiting Quetiapine Fumarate (Seroquel) 100 mg PO HS [facility] Last Admin: 09/15/16 22:06 Dose: 100 mg Saccharomyces Boulardii (Florastor) 250 mg PO BID [facility] Last Admin: 09/16/16 09:01 Dose: 250 mg Trazodone HCl (Desyrel) 50 mg PO HS PRN PRN Reason: Insomnia Last Admin: 09/15/16 22:06 Dose: 50 mg - Labs Labs: 09/15/16 15:57 09/15/16 11:47 PT 11.1 SECONDS (9.7-12.2) 09/15/16 11:47 INR 1.0 09/15/16 11:47 APTT 35 SECONDS (21-34) H 09/15/16 11:47 Attending/Attestation - Attestation I have personally seen and examined this patient.: Yes I have fully participated in the care of the patient.: Yes I have reviewed all pertinent clinical information, including history, physical exam and plan: Yes Notes (Text): Patient seen, examined, and case discussed with the resident. Patient completed detox from psych. 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 Patient reports shortness of breathe. Assessment/Plan 1) Left leg wound * Wound care consulted. * General surgery consulted, Dr. Brumfield - help appreciated: no surgical intervention at this time. Dressings changed this AM. * Clindamycin 300mg PO TID (started 09/12) * Florastor 250mg BID * venous dopplers negative * Routine labs * UA negative * Urine preg negative * Blood cultures - negative for 3 days X2 2) Abnormal Echo * Echo: mild or markedly reduced LV dysfunction, mildly reduced RV function, atrial surface posterior leaf small calcification, atrial septum is aneurysmal patent foramen ovale with left to right flow. * Cardio consult placed- Dr. Hill- help appreciated. Patient with Hx of endocarditis X2 * Dr. Hill recommended intercentional cardio consult (Dr. Witt) for cardiac cath. * f/u Dr. Witt recs 3) Hepatitis C * + per hx, no treatment * she will need to follow-up with GI doctor/Infectious disease doctor as outpatient. 4) Opiate withdrawal * Detox per psych-->completing detox today * UDS + 5) Cocaine abuse * Detox per psych * UDS +
--- NOTE | 2016-09-16 06:57 | CP.PCM.PN ---
Subjective - Date & Time of Evaluation Date of Evaluation: 09/16/16 Time of Evaluation: 06:56 - Subjective Subjective: no cp or sob Objective - Vital Signs/Intake and Output Vital Signs (last 24 hours): Temp Pulse Resp BP Pulse Ox 97.8 F 72 18 90/60 L 99 09/16/16 05:17 09/16/16 05:17 09/16/16 05:17 09/16/16 05:17 09/16/16 05:17 - Medications Medications: Current Medications Al Hydrox/Mg Hydrox/Simethicone (Maalox 30 Ml) 30 ml PO TID PRN PRN Reason: Indigestion / Heartburn Clindamycin HCl (Cleocin) 300 mg PO TID [facility] Last Admin: 09/15/16 19:02 Dose: 300 mg Clonidine HCl (Catapres) 0.1 mg PO Q8 PRN PRN Reason: COWS Score More or Equal to 5 Dicyclomine HCl (Bentyl) 10 mg PO Q6 PRN PRN Reason: Muscle spasm Gabapentin (Neurontin) 100 mg PO TID [facility] Last Admin: 09/15/16 19:02 Dose: 100 mg Hydroxyzine HCl (Atarax) 25 mg PO Q6 PRN PRN Reason: Anxiety Last Admin: 09/15/16 19:02 Dose: 25 mg Ibuprofen (Motrin Tab) 400 mg PO Q6 PRN PRN Reason: Pain, moderate (4-7) Loperamide HCl (Imodium) 2 mg PO Q8 PRN PRN Reason: Diarrhea Methadone HCl (Methadone) 10 mg PO Q24H [facility] PRN Reason: Taper Stop: 09/17/16 08:59 Last Admin: 09/15/16 09:40 Dose: 10 mg Nicotine (Nicoderm Cq) 1 patch TD DAILY [facility] Last Admin: 09/15/16 09:40 Dose: 1 patch Ondansetron HCl (Zofran Tab) 4 mg PO Q8 PRN PRN Reason: Nausea/Vomiting Quetiapine Fumarate (Seroquel) 100 mg PO HS [facility] Last Admin: 09/15/16 22:06 Dose: 100 mg Saccharomyces Boulardii (Florastor) 250 mg PO BID [facility] Last Admin: 09/15/16 19:03 Dose: 250 mg Trazodone HCl (Desyrel) 50 mg PO HS PRN PRN Reason: Insomnia Last Admin: 09/15/16 22:06 Dose: 50 mg - Labs Labs: 09/15/16 15:57 09/15/16 11:47 PT 11.1 SECONDS (9.7-12.2) 09/15/16 11:47 INR 1.0 09/15/16 11:47 APTT 35 SECONDS (21-34) H 09/15/16 11:47 - Constitutional Appears: Well - Head Exam Head Exam: ATRAUMATIC - Eye Exam Eye Exam: Normal appearance - ENT Exam ENT Exam: Mucous Membranes Moist - Respiratory Exam Respiratory Exam: NORMAL BREATHING PATTERN - Cardiovascular Exam Cardiovascular Exam: REGULAR RHYTHM - GI/Abdominal Exam GI & Abdominal Exam: Normal Bowel Sounds - Exam External exam: Lesions - Extremities Exam Extremities Exam: absent: Tenderness - Neurological Exam Neurological Exam: Alert, Awake - Psychiatric Exam Psychiatric exam: Normal Affect, Normal Mood - Skin Skin Exam: Dry Assessment and Plan (1) Abnormal echocardiogram Assessment & Plan: Stress to rule out ischemia counselled that heart is weak and to be compliant with meds told her we have cardiology clinic on Saturday Status: Acute (2) Heroin abuse Status: Acute
[2016-09-16] MEDS: Saccharomyces Boulardi 250 mg Cap PO SCH ×2 (09:01→18:18)
--- NOTE | 2016-09-16 12:06 | PCM.PYCHPN ---
Psychiatric Progress Note - Psychiatric Progress Note Patient seen today, length of contact: 15 minutes Patient Chief Complaint: I'm feeling better Problems Identified/Issues Discussed: Patient seen. Chart reviewed. Case discussed with the staff. Issues related to illness and treatment were discussed with the patient. Reported compliant with treatment with no adverse affects. Tolerating treatment very well. Reported feeling better with less withdrawal symptoms. Patient was evaluated by cardiology and is scheduled for cardiac cath. Patient got her last dose of methadone 5 mg today. Patient will be transferred to medical floor for evaluation before going to cardiac Cath. At the time of evaluation, patient was awake alert oriented 3, had no delusions, no auditory or visual hallucinations , no suicidal ideations or homicidal ideations. Medical Problems: Decreased ejection fraction Diagnostic Results: Reviewed Medication Change: No Medical Record Reviewed: Yes Consults ordered or reviewed: Reviewed Mental Status Examination - Cognitive Function Orientation: Person, Place, Situation, Time Memory: Intact Attention: WNL Concentration: WNL Association: WNL Fund of Knowledge: WNL Decription of patient's judgement and insights: Fair - Mood Mood: Anxious - Affect Affect: Other (Appropriate) - Speech Speech: Appropriate - Formal Thought Process Formal Thought Process: No Impairment Psychotic Thoughts and Behaviors: None - Suicidal Ideation Suicidal Ideation: No - Homicidal Ideation Homicidal Ideation: No Goal/Treatment Plan - Goal/Treatment Plan Need for Continued Stay: Remain at risks for inpatient hospitalization, Discharge may exacerbated symptoms, Severe functional impairment Progress Toward Problem(s) and Goals/Treatment Plan: Patient education Supportive therapy Continue treatment as before Estimated Date of D/C: 09/16/16 - Smoking Cessation Smoking Cessation Initiated: Yes
--- NOTE | 2016-09-17 07:39 | CP.PCM.PN ---
<Makayla Rivero V - Last Filed: 09/17/16 11:55> Objective - Vital Signs/Intake and Output Vital Signs (last 24 hours): Temp Pulse Resp BP Pulse Ox 97.7 F 69 17 104/62 100 09/17/16 07:25 09/17/16 08:00 09/17/16 07:25 09/17/16 07:25 09/17/16 07:25 - Medications Medications: Current Medications Al Hydrox/Mg Hydrox/Simethicone (Maalox 30 Ml) 30 ml PO TID PRN PRN Reason: Indigestion / Heartburn Clindamycin HCl (Cleocin) 300 mg PO TID [facility] Last Admin: 09/17/16 09:09 Dose: 300 mg Clonidine HCl (Catapres) 0.1 mg PO Q8 PRN PRN Reason: COWS Score More or Equal to 5 Dicyclomine HCl (Bentyl) 10 mg PO Q6 PRN PRN Reason: Muscle spasm Gabapentin (Neurontin) 100 mg PO TID [facility] Last Admin: 09/17/16 09:09 Dose: 100 mg Hydroxyzine HCl (Atarax) 25 mg PO Q6 PRN PRN Reason: Anxiety Last Admin: 09/17/16 09:14 Dose: 25 mg Ibuprofen (Motrin Tab) 400 mg PO Q6 PRN PRN Reason: Pain, moderate (4-7) Loperamide HCl (Imodium) 2 mg PO Q8 PRN PRN Reason: Diarrhea Nicotine (Nicoderm Cq) 1 patch TD DAILY [facility] Last Admin: 09/17/16 09:10 Dose: 1 patch Ondansetron HCl (Zofran Tab) 4 mg PO Q8 PRN PRN Reason: Nausea/Vomiting Quetiapine Fumarate (Seroquel) 100 mg PO HS [facility] Last Admin: 09/16/16 22:11 Dose: 100 mg Saccharomyces Boulardii (Florastor) 250 mg PO BID [facility] Last Admin: 09/17/16 09:09 Dose: 250 mg Trazodone HCl (Desyrel) 50 mg PO HS PRN PRN Reason: Insomnia Last Admin: 09/15/16 22:06 Dose: 50 mg - Labs Labs: 09/15/16 15:57 09/15/16 11:47 PT 11.1 SECONDS (9.7-12.2) 09/15/16 11:47 INR 1.0 09/15/16 11:47 APTT 35 SECONDS (21-34) H 09/15/16 11:47 Attending/Attestation - Attestation I have personally seen and examined this patient.: Yes I have fully participated in the care of the patient.: Yes I have reviewed all pertinent clinical information, including history, physical exam and plan: Yes Notes (Text): Patient seen, examined, and case discussed with the resident. Patient completed detox from psych as of yesterday. Patient transferred to telemetry given abnormal echocardiogram; will need to follow-up with cardiology regarding possible cardiac catherization. Patient refuses blood work this morning, will reattempt this afternoon. Assessment/Plan 1) Left leg wound * Wound care consulted. * General surgery consulted, Dr. Brumfield - help appreciated: no surgical intervention at this time. Dressings changed this AM. * Clindamycin 300mg PO TID (started 09/12) * Florastor 250mg BID * venous dopplers negative * Routine labs * UA negative * Urine preg negative * Blood cultures - negative for 4 days X2 2) Abnormal Echo * Echo: mild or markedly reduced LV dysfunction, mildly reduced RV function, atrial surface posterior leaf small calcification, atrial septum is aneurysmal patent foramen ovale with left to right flow. * Cardio consult placed- Dr. Hill- help appreciated. Patient with Hx of endocarditis X2 * Dr. Hill recommended intercentional cardio consult (Dr. Witt) for cardiac cath. * f/u Dr. Witt recs 3) Hepatitis C * + per hx, no treatment * she will need to follow-up with GI doctor/Infectious disease doctor as outpatient. 4) Opiate withdrawal * Detox per psych-->completing detox today * UDS + 5) Cocaine abuse * Detox per psych * UDS + 6) Prophylactic measure * ambulatory * Pepcid 20mg PO bid * SCDS while in bed. <Ning Nixon - Last Filed: 09/17/16 12:23> Subjective - Date & Time of Evaluation Date of Evaluation: 09/17/16 Time of Evaluation: 10:00 - Subjective Subjective: Medicine Note for Dr. Rivero, Patient was seen and examined at bedside. Patient reports no more dizziness. She is tolerating diet well. Denies any fever, chills, chest pain, SOB, abdominal pain, or urinary symptoms. Patient is pending possible Cardiac Cath with Dr. Witt. Objective - Vital Signs/Intake and Output Vital Signs (last 24 hours): Temp Pulse Resp BP Pulse Ox 97.5 F L 71 20 112/72 97 09/16/16 23:38 09/17/16 00:37 09/16/16 23:38 09/16/16 23:38 09/16/16 23:38 - Medications Medications: Current Medications Al Hydrox/Mg Hydrox/Simethicone (Maalox 30 Ml) 30 ml PO TID PRN PRN Reason: Indigestion / Heartburn Clindamycin HCl (Cleocin) 300 mg PO TID [facility] Last Admin: 09/16/16 19:21 Dose: 300 mg Clonidine HCl (Catapres) 0.1 mg PO Q8 PRN PRN Reason: COWS Score More or Equal to 5 Dicyclomine HCl (Bentyl) 10 mg PO Q6 PRN PRN Reason: Muscle spasm Gabapentin (Neurontin) 100 mg PO TID [facility] Last Admin: 09/16/16 18:18 Dose: 100 mg Hydroxyzine HCl (Atarax) 25 mg PO Q6 PRN PRN Reason: Anxiety Last Admin: 09/16/16 13:00 Dose: 25 mg Ibuprofen (Motrin Tab) 400 mg PO Q6 PRN PRN Reason: Pain, moderate (4-7) Loperamide HCl (Imodium) 2 mg PO Q8 PRN PRN Reason: Diarrhea Methadone HCl (Methadone) 5 mg PO Q24H [facility] PRN Reason: Taper Stop: 09/17/16 08:59 Last Admin: 09/16/16 09:01 Dose: 5 mg Nicotine (Nicoderm Cq) 1 patch TD DAILY [facility] Last Admin: 09/16/16 09:01 Dose: 1 patch Ondansetron HCl (Zofran Tab) 4 mg PO Q8 PRN PRN Reason: Nausea/Vomiting Quetiapine Fumarate (Seroquel) 100 mg PO HS [facility] Last Admin: 09/16/16 22:11 Dose: 100 mg Saccharomyces Boulardii (Florastor) 250 mg PO BID [facility] Last Admin: 09/16/16 18:18 Dose: 250 mg Trazodone HCl (Desyrel) 50 mg PO HS PRN PRN Reason: Insomnia Last Admin: 09/15/16 22:06 Dose: 50 mg - Labs Labs: 09/15/16 15:57 09/15/16 11:47 PT 11.1 SECONDS (9.7-12.2) 09/15/16 11:47 INR 1.0 09/15/16 11:47 APTT 35 SECONDS (21-34) H 09/15/16 11:47 - Constitutional Appears: No Acute Distress - Head Exam Head Exam: NORMAL INSPECTION, NORMOCEPHALIC - Respiratory Exam Respiratory Exam: Clear to Ausculation Bilateral, NORMAL BREATHING PATTERN - Cardiovascular Exam Cardiovascular Exam: REGULAR RHYTHM - GI/Abdominal Exam GI & Abdominal Exam: Soft, Normal Bowel Sounds. absent: Distended, Tenderness - Extremities Exam Extremities Exam: Normal Inspection - Neurological Exam Neurological Exam: Alert, Awake, Oriented x3 - Skin Skin Exam: Dry, Intact, Normal Color, Warm
--- NOTE | 2016-09-17 08:08 | CP.PCM.PN ---
Subjective - Date & Time of Evaluation Date of Evaluation: 09/17/16 Time of Evaluation: 08:00 - Subjective Subjective: Pt no complaints Objective - Vital Signs/Intake and Output Vital Signs (last 24 hours): Temp Pulse Resp BP Pulse Ox 97.7 F 55 L 17 104/62 100 09/17/16 07:25 09/17/16 07:25 09/17/16 07:25 09/17/16 07:25 09/17/16 07:25 - Medications Medications: Current Medications Al Hydrox/Mg Hydrox/Simethicone (Maalox 30 Ml) 30 ml PO TID PRN PRN Reason: Indigestion / Heartburn Clindamycin HCl (Cleocin) 300 mg PO TID [facility] BEDS AT [facility] Last Admin: 09/16/16 19:21 Dose: 300 mg Clonidine HCl (Catapres) 0.1 mg PO Q8 PRN PRN Reason: COWS Score More or Equal to 5 Dicyclomine HCl (Bentyl) 10 mg PO Q6 PRN PRN Reason: Muscle spasm Gabapentin (Neurontin) 100 mg PO TID [facility] 234 BEDS AT [facility] Last Admin: 09/16/16 18:18 Dose: 100 mg Hydroxyzine HCl (Atarax) 25 mg PO Q6 PRN PRN Reason: Anxiety Last Admin: 09/16/16 13:00 Dose: 25 mg Ibuprofen (Motrin Tab) 400 mg PO Q6 PRN PRN Reason: Pain, moderate (4-7) Loperamide HCl (Imodium) 2 mg PO Q8 PRN PRN Reason: Diarrhea Methadone HCl (Methadone) 5 mg PO Q24H [facility] 234 BEDS AT [facility] PRN Reason: Taper Stop: 09/17/16 08:59 Last Admin: 09/16/16 09:01 Dose: 5 mg Nicotine (Nicoderm Cq) 1 patch TD DAILY [facility] 234 BEDS AT [facility] Last Admin: 09/16/16 09:01 Dose: 1 patch Ondansetron HCl (Zofran Tab) 4 mg PO Q8 PRN PRN Reason: Nausea/Vomiting Quetiapine Fumarate (Seroquel) 100 mg PO HS [facility] 234 BEDS AT [facility] Last Admin: 09/16/16 22:11 Dose: 100 mg Saccharomyces Boulardii (Florastor) 250 mg PO BID [facility] 234 BEDS AT [facility] Last Admin: 09/16/16 18:18 Dose: 250 mg Trazodone HCl (Desyrel) 50 mg PO HS PRN PRN Reason: Insomnia Last Admin: 09/15/16 22:06 Dose: 50 mg - Labs Labs: 09/15/16 15:57 09/15/16 11:47 PT 11.1 SECONDS (9.7-12.2) 09/15/16 11:47 INR 1.0 09/15/16 11:47 APTT 35 SECONDS (21-34) H 09/15/16 11:47 - Constitutional Appears: Non-toxic - Head Exam Head Exam: ATRAUMATIC - Eye Exam Eye Exam: Normal appearance - ENT Exam ENT Exam: Mucous Membranes Moist - Respiratory Exam Respiratory Exam: Clear to Ausculation Bilateral - Cardiovascular Exam Cardiovascular Exam: REGULAR RHYTHM - GI/Abdominal Exam GI & Abdominal Exam: Normal Bowel Sounds - Exam External exam: Lesions - Extremities Exam Extremities Exam: absent: Pedal Edema - Neurological Exam Neurological Exam: Alert, Awake - Psychiatric Exam Psychiatric exam: Normal Mood Assessment and Plan (1) Abnormal echocardiogram Assessment & Plan: IVDA not ICD candidate CHF meds optimize if compliant stress for low ef Status: Acute (2) Heroin abuse Status: Acute
[2016-09-17] MEDS: Saccharomyces Boulardi 250 mg Cap PO SCH ×2 (09:09→18:51)
[2016-09-18] MEDS: Saccharomyces Boulardi 250 mg Cap PO SCH ×3 (09:38→19:15)
--- NOTE | 2016-09-18 11:15 | CP.PCM.PN ---
<mAieBrittanie - Last Filed: 09/18/16 13:51> Subjective - Date & Time of Evaluation Date of Evaluation: 09/18/16 Time of Evaluation: 11:08 - Subjective Subjective: PGY-[address] Witt Pt seen and examined, expressing wish to detox. No acute distress. Was anxious due to sudden change in plan from cath to Lexiscan tomorrow. Objective - Vital Signs/Intake and Output Vital Signs (last 24 hours): Temp Pulse Resp BP Pulse Ox 97.5 F L 74 16 119/73 100 09/18/16 07:20 09/18/16 07:59 09/18/16 07:20 09/18/16 07:20 09/18/16 07:20 Intake and Output: 09/18/16 09/18/16 06:59 18:59 Intake Total 150 Balance 150 - Medications Medications: Current Medications Al Hydrox/Mg Hydrox/Simethicone (Maalox 30 Ml) 30 ml PO TID PRN PRN Reason: Indigestion / Heartburn Clonidine HCl (Catapres) 0.1 mg PO Q8 PRN PRN Reason: COWS Score More or Equal to 5 Dicyclomine HCl (Bentyl) 10 mg PO Q6 PRN PRN Reason: Muscle spasm Gabapentin (Neurontin) 100 mg PO TID [facility] Last Admin: 09/18/16 10:47 Dose: 100 mg Hydroxyzine HCl (Atarax) 25 mg PO Q6 PRN PRN Reason: Anxiety Last Admin: 09/17/16 16:45 Dose: 25 mg Loperamide HCl (Imodium) 2 mg PO Q8 PRN PRN Reason: Diarrhea Nicotine (Nicoderm Cq) 1 patch TD DAILY [facility] Last Admin: 09/18/16 10:47 Dose: 1 patch Ondansetron HCl (Zofran Tab) 4 mg PO Q8 PRN PRN Reason: Nausea/Vomiting Quetiapine Fumarate (Seroquel) 100 mg PO HS [facility] Last Admin: 09/17/16 21:46 Dose: 100 mg Saccharomyces Boulardii (Florastor) 250 mg PO BID [facility] Last Admin: 09/18/16 10:46 Dose: 250 mg Trazodone HCl (Desyrel) 50 mg PO HS PRN PRN Reason: Insomnia Last Admin: 09/17/16 21:46 Dose: 50 mg - Labs Labs: 05/27/17 15:57 09/15/16 11:47 PT 11.1 SECONDS (9.7-12.2) 09/15/16 11:47 INR 1.0 09/15/16 11:47 APTT 35 SECONDS (21-34) H 09/15/16 11:47 - Constitutional Appears: No Acute Distress - Head Exam Head Exam: ATRAUMATIC, NORMOCEPHALIC - Eye Exam Eye Exam: EOMI, Normal appearance, PERRL Pupil Exam: NORMAL ACCOMODATION - ENT Exam ENT Exam: Mucous Membranes Moist - Neck Exam Additional comments: No carotid bruits - Respiratory Exam Respiratory Exam: Clear to Ausculation Bilateral, NORMAL BREATHING PATTERN. absent: Rales, Rhonchi, Wheezes - Cardiovascular Exam Cardiovascular Exam: REGULAR RHYTHM, +S1, +S2, Murmur (systolic) - GI/Abdominal Exam GI & Abdominal Exam: Soft, Normal Bowel Sounds. absent: Distended, Guarding, Rigid, Tenderness - Extremities Exam Extremities Exam: Normal Capillary Refill. absent: Calf Tenderness Additional comments: R leg dressing d/c/i. L leg with hypochromic scars - Neurological Exam Neurological Exam: Alert, Awake, Normal Gait, Oriented x3 - Psychiatric Exam Psychiatric exam: Normal Affect, Normal Mood - Skin Skin Exam: Dry, Warm Assessment and Plan - Assessment and Plan (Free Text) Plan: 36 yo F with PMH of IVDA, endocarditis (twice, 6 month ago), Polysubstance abuse (Heroin, Alcohol, Cocaine IV), Hepatitis C, intermittent bronchitis, initially presented to [facility] for detox. Medicine was consulted for LLE pain 2/2 prior wound (tx at [facility] per pt). Echo (09/12/16) showed LVEF 50%, Moderate to markedly diffuse reduced overall LV dysfxn. Small mobile calcification atrial on atrial surface of the posterior, interatrial septum is aneurysmal, PFO noted with left to right flow on color Doppler. Reduced LV function (LVEF 50%) Patent foramen ovale with interatrial apetal aneursym - likely 2/2 regular IVDA/substance abuse and 2x endocarditis - Lexiscan with myolite tomorrow - Not a candidate for ICD given active IVDA - Avoid Beta-blockers in setting of cocaine abuse, want to avoid unopposed alpha blockade Small Mobile calcification on atrial surface of posterior leaflet - Pt is highly likely of medication non-compliance - Blood cultures x2 negative, afebrile; Pena score is low. No recent antibiotics before cultures drawn - Defer to primary cardiology team (Dr. Hill) for anticoagulant decision Interatrial septum is aneurysmal with patent foramen ovale L to R flow DVT prophylasix - Pt ambulatory, SCD PRN S/R/D/w Dr. Witt <Saturnino Witt - Last Filed: 09/19/16 07:12> Objective - Vital Signs/Intake and Output Vital Signs (last 24 hours): Temp Pulse Resp BP Pulse Ox 98 F 76 20 114/62 98 09/18/16 23:10 09/19/16 05:46 09/18/16 23:10 09/18/16 23:10 09/18/16 23:10 - Medications Medications: Current Medications Al Hydrox/Mg Hydrox/Simethicone (Maalox 30 Ml) 30 ml PO TID PRN PRN Reason: Indigestion / Heartburn Clonidine HCl (Catapres) 0.1 mg PO Q8 PRN PRN Reason: COWS Score More or Equal to 5 Dicyclomine HCl (Bentyl) 10 mg PO Q6 PRN PRN Reason: Muscle spasm Gabapentin (Neurontin) 100 mg PO TID [facility] Last Admin: 09/18/16 19:16 Dose: 100 mg Hydroxyzine HCl (Atarax) 25 mg PO Q6 PRN PRN Reason: Anxiety Last Admin: 09/18/16 19:16 Dose: 25 mg Loperamide HCl (Imodium) 2 mg PO Q8 PRN PRN Reason: Diarrhea Nicotine (Nicoderm Cq) 1 patch TD DAILY [facility] Last Admin: 09/18/16 10:47 Dose: 1 patch Ondansetron HCl (Zofran Tab) 4 mg PO Q8 PRN PRN Reason: Nausea/Vomiting Quetiapine Fumarate (Seroquel) 100 mg PO HS [facility] Last Admin: 09/18/16 22:13 Dose: Not Given Saccharomyces Boulardii (Florastor) 250 mg PO BID [facility] Last Admin: 09/18/16 19:15 Dose: 250 mg Trazodone HCl (Desyrel) 50 mg PO HS PRN PRN Reason: Insomnia Last Admin: 09/18/16 22:12 Dose: 50 mg - Labs Labs: 09/15/16 15:57 09/15/16 11:47 PT 11.1 SECONDS (9.7-12.2) 09/15/16 11:47 INR 1.0 09/15/16 11:47 APTT 35 SECONDS (21-34) H 09/15/16 11:47 Assessment and Plan - Assessment and Plan (Free Text) Assessment: Patient seen and evaluated with the medical office secretary and plan of care defined Thank you
--- NOTE | 2016-09-18 12:24 | CP.PCM.PN ---
<Enrike Jo - Last Filed: 09/18/16 16:18> Subjective - Date & Time of Evaluation Date of Evaluation: 09/18/16 Time of Evaluation: 09:45 - Subjective Subjective: EP-Cardiology Progress Note Dr. Hill Patient seen and examined at bedside on floors. Discharged from detox unit to floors over the weekend. No acute events overnight. NPO for pending cardiac cath this AM. Patient refusing labs for last 2 days as per nursing and primary team. Pt mildly anxious for cath, but no other complaints. Denies chest pain, shortness of breath, nausea/emesis. Admits to some intermittent dizziness, otherwise no complaints. Remaining ROS negative. Objective - Vital Signs/Intake and Output Vital Signs (last 24 hours): Temp Pulse Resp BP Pulse Ox 97.5 F L 74 16 119/73 100 09/18/16 07:20 09/18/16 07:59 09/18/16 07:20 09/18/16 07:20 09/18/16 07:20 Intake and Output: 09/18/16 09/18/16 06:59 18:59 Intake Total 150 Balance 150 - Medications Medications: Current Medications Al Hydrox/Mg Hydrox/Simethicone (Maalox 30 Ml) 30 ml PO TID PRN PRN Reason: Indigestion / Heartburn Clonidine HCl (Catapres) 0.1 mg PO Q8 PRN PRN Reason: COWS Score More or Equal to 5 Dicyclomine HCl (Bentyl) 10 mg PO Q6 PRN PRN Reason: Muscle spasm Gabapentin (Neurontin) 100 mg PO TID [facility] Last Admin: 09/18/16 10:47 Dose: 100 mg Hydroxyzine HCl (Atarax) 25 mg PO Q6 PRN PRN Reason: Anxiety Last Admin: 09/17/16 16:45 Dose: 25 mg Loperamide HCl (Imodium) 2 mg PO Q8 PRN PRN Reason: Diarrhea Nicotine (Nicoderm Cq) 1 patch TD DAILY [facility] Last Admin: 09/18/16 10:47 Dose: 1 patch Ondansetron HCl (Zofran Tab) 4 mg PO Q8 PRN PRN Reason: Nausea/Vomiting Quetiapine Fumarate (Seroquel) 100 mg PO HS [facility] Last Admin: 09/17/16 21:46 Dose: 100 mg Saccharomyces Boulardii (Florastor) 250 mg PO BID [facility] Last Admin: 09/18/16 10:46 Dose: 250 mg Trazodone HCl (Desyrel) 50 mg PO HS PRN PRN Reason: Insomnia Last Admin: 09/17/16 21:46 Dose: 50 mg - Labs Labs: 09/15/16 15:57 09/15/16 11:47 PT 11.1 SECONDS (9.7-12.2) 09/15/16 11:47 INR 1.0 09/15/16 11:47 APTT 35 SECONDS (21-34) H 09/15/16 11:47 - Additional Findings Additional findings: - Constitutional Appears: Non-toxic, No Acute Distress, Older Than Stated Age, Chronically Ill - Head Exam Head Exam: ATRAUMATIC, NORMAL INSPECTION, NORMOCEPHALIC - Eye Exam Eye Exam: EOMI, Normal appearance. absent: Conjunctival injection, Scleral icterus Pupil Exam: absent: Irregular, Unequal - ENT Exam ENT Exam: Mucous Membranes Moist - Neck Exam Neck exam: Positive for: Full Rom. Negative for: Normal Inspection (multiple injection sites in the neck noted), Tenderness - Respiratory Exam Respiratory Exam: Clear to Auscultation Bilateral, NORMAL BREATHING PATTERN. absent: Accessory Muscle Use, Chest Wall Tenderness, Decreased Breath Sounds, Prolonged Expiratory Phase, Rales, Rhonchi, Wheezes - Cardiovascular Exam Cardiovascular Exam: REGULAR RHYTHM, RRR, +S1, +S2, faint holosystolic murmur most prominent at left sternal border. absent: Bradycardia, Tachycardia, Irregular Rhythm, +S4 - GI/Abdominal Exam GI & Abdominal Exam: Normal Bowel Sounds, Soft. absent: Distended, Firm, Hyperactive Bowel Sounds, Hypoactive Bowel Sounds, Rigid, Tenderness - Extremities Exam Extremities exam: Multiple poorly healed ulcers along multiple sites of bilateral LE, multiple likely injection sites along bilateral LE. Negative for : calf tenderness, normal inspection, pedal edema - Neurological Exam Neurological exam: Awake, Alert, moving extremities spontaneously, following all commands appropriately - Psychiatric Exam Psychiatric exam: Normal Affect, Normal Mood - Skin Skin Exam: Dry, Intact (except as noted on Extremities exam), Normal Color, Warm Assessment and Plan (1) Abnormal echocardiogram Assessment & Plan: Echo 09/12/16: LVEF 50%, Moderate to markedly diffuse reduced overall LV dysfxn, Mildly reduced fxn, Small mobile calcification atrial on atrial surface of the posterior, interatrial septum is aneurysmal, PFO noted with left to right flow on color Doppler -Abnormal Echo, likely 2/2 regular IVDA/substance abuse and 2x endocarditis -Unlikely currently suffering from Endocarditis, Blood cultures x2 negative, afebrile -Continue to monitor -Dr. Witt consulted for cardiac cath, recs Lexiscan instead, ordered for tomorrow -Not a candidate for ICD given active IVDA -Avoid Beta-blockers in setting of cocaine abuse, want to avoid unopposed alpha blockade Status: Acute - Assessment and Plan (Free Text) Assessment: Case discussed with Dr. Hill. <Claribel Hill - Last Filed: 09/20/16 09:14> Objective - Vital Signs/Intake and Output Vital Signs (last 24 hours): Temp Pulse Resp BP Pulse Ox 98.2 F 90 20 109/68 98 09/19/16 07:00 09/19/16 07:59 09/19/16 07:00 09/19/16 09:50 09/19/16 07:00 - Labs Labs: 09/15/16 15:57 09/15/16 11:47 PT 11.1 SECONDS (9.7-12.2) 09/15/16 11:47 INR 1.0 09/15/16 11:47 APTT 35 SECONDS (21-34) H 09/15/16 11:47 Assessment and Plan (1) Abnormal echocardiogram Status: Acute (2) Heroin abuse Status: Acute Attending/Attestation - Attestation I have personally seen and examined this patient.: Yes I have fully participated in the care of the patient.: Yes I have reviewed all pertinent clinical information, including history, physical exam and plan: Yes Notes (Text): 09/20/16 09:14 tx from detox to floors ambulating stress in am
--- NOTE | 2016-09-18 12:48 | CARD ---
APPROVED REPORT EKG Measurement Heart [id number] [place] [id number] <Conclusion> Sinus bradycardia Otherwise normal ECG
[2016-09-18 15:42] VITALS: RESP 20
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
[2016-09-19 01:10] VITALS: O2SAT 98
[2016-09-19 08:02] VITALS: PULSE 90
[2016-09-19 08:13] VITALS: TEMP 98.2
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
[2016-09-19 09:51] VITALS: BP 109/68
[2016-09-19] MEDS: Saccharomyces Boulardi 250 mg Cap PO SCH (09:54)
--- NOTE | 2016-09-19 11:05 | CP.PCM.PN ---
<Enrike Jo - Last Filed: 09/19/16 11:02> Subjective - Date & Time of Evaluation Date of Evaluation: 09/19/16 Time of Evaluation: 08:00 - Subjective Subjective: EP-Cardiology Progress Note Dr. Hill Patient seen and examined at bedside on floors. No acute events overnight. Cath yesterday canceled in favor of exercise stress test today. Patient is anxious/agitated today due to not getting cath, insists she still wants a cath done. Denies chest pain, shortness of breath, nausea/emesis. Admits to some intermittent dizziness, otherwise no complaints. Remaining ROS negative. Objective - Vital Signs/Intake and Output Vital Signs (last 24 hours): Temp Pulse Resp BP Pulse Ox 98.2 F 90 20 109/68 98 09/19/16 07:00 09/19/16 07:59 09/19/16 07:00 09/19/16 09:50 09/19/16 07:00 - Labs Labs: 09/15/16 15:57 09/15/16 11:47 PT 11.1 SECONDS (9.7-12.2) 09/15/16 11:47 INR 1.0 09/15/16 11:47 APTT 35 SECONDS (21-34) H 09/15/16 11:47 - Additional Findings Additional findings: - Constitutional Appears: Non-toxic, No Acute Distress, Older Than Stated Age, Chronically Ill - Head Exam Head Exam: ATRAUMATIC, NORMAL INSPECTION, NORMOCEPHALIC - Eye Exam Eye Exam: EOMI, Normal appearance. absent: Conjunctival injection, Scleral icterus Pupil Exam: absent: Irregular, Unequal - ENT Exam ENT Exam: Mucous Membranes Moist - Neck Exam Neck exam: Positive for: Full Rom. Negative for: Normal Inspection (multiple injection sites in the neck noted), Tenderness - Respiratory Exam Respiratory Exam: Clear to Auscultation Bilateral, NORMAL BREATHING PATTERN. absent: Accessory Muscle Use, Chest Wall Tenderness, Decreased Breath Sounds, Prolonged Expiratory Phase, Rales, Rhonchi, Wheezes - Cardiovascular Exam Cardiovascular Exam: REGULAR RHYTHM, RRR, +S1, +S2. absent: Bradycardia, Tachycardia, Irregular Rhythm - GI/Abdominal Exam GI & Abdominal Exam: Normal Bowel Sounds, Soft. absent: Distended, Firm, Hyperactive Bowel Sounds, Hypoactive Bowel Sounds, Rigid, Tenderness - Extremities Exam Extremities exam: Multiple poorly healed ulcers along multiple sites of bilateral LE, bandaging along bilateral LE, multiple likely injection sites along bilateral LE. Negative for: calf tenderness, normal inspection, pedal edema - Neurological Exam Neurological exam: Awake, Alert, moving extremities spontaneously, following all commands appropriately - Psychiatric Exam Psychiatric exam: Normal Affect, Anxious/Agitated - Skin Skin Exam: Dry, Intact (except as noted on Extremities exam), Normal Color, Warm Assessment and Plan (1) Abnormal echocardiogram Assessment & Plan: Echo 09/12/16: LVEF 50%, Moderate to markedly diffuse reduced overall LV dysfxn, Mildly reduced fxn, Small mobile calcification atrial on atrial surface of the posterior, interatrial septum is aneurysmal, PFO noted with left to right flow on color Doppler Exercise stress test 09/19/16: Normal EST -Abnormal Echo, likely 2/2 regular IVDA/substance abuse and 2x endocarditis -Unlikely currently suffering from Endocarditis, Blood cultures x2 negative, afebrile -Cardiac cath canceled in favor of Stress test as per Dr. Witt, Normal EST today -Not a candidate for ICD given active IVDA -Avoid Beta-blockers in setting of cocaine abuse, want to avoid unopposed alpha blockade -Treating as heart failure, started on Lisinopril 5mg and Lasix 20mg PO daily; per primary team patient is refusing both and insisting on not taking any meds Status: Acute - Assessment and Plan (Free Text) Assessment: Case discussed with Dr. Hill. <Claribel Hill - Last Filed: 09/20/16 09:13> Objective - Vital Signs/Intake and Output Vital Signs (last 24 hours): Temp Pulse Resp BP Pulse Ox 98.2 F 90 20 109/68 98 09/19/16 07:00 09/19/16 07:59 09/19/16 07:00 09/19/16 09:50 09/19/16 07:00 - Labs Labs: 09/15/16 15:57 09/15/16 11:47 PT 11.1 SECONDS (9.7-12.2) 09/15/16 11:47 INR 1.0 09/15/16 11:47 APTT 35 SECONDS (21-34) H 09/15/16 11:47 Assessment and Plan (1) Abnormal echocardiogram Status: Acute (2) Heroin abuse Status: Acute Attending/Attestation - Attestation I have personally seen and examined this patient.: Yes I have fully participated in the care of the patient.: Yes I have reviewed all pertinent clinical information, including history, physical exam and plan: Yes Notes (Text): 09/20/16 09:13 no ischemia on EST
--- NOTE | 2016-09-24 08:36 | CARD ---
APPROVED REPORT Protocol: MARISSA Test Type: Treadmill Stress Test Test Indications: ABN. EKG Medications: LIST SCAN Medical History: ABN. EKG Target HR: 186 bpm Resting ECG: normal Resting Heart Rate: 86 bpm Resting Blood Pressure: /mmHg submaximum (85%): 158 bpm TEST SUMMARY [id number]:02..1.086/.0. [id number]/.0. MANUALSTAGE [id number]/54.0. [id number]/50.0. POST EXERCISE Reason for Termination: pROTOCAL COMPLETED Target HR: No Max HR: 88 bpm 51% of Maximum Predicted HR: 186 bpm Exercise duration: 04:05 min:sec, 0 Stage Exercise capacity: 6.2METs Max Blood Pressure: 115/54mmHg Blood Pressure response to exercise: normal resting BP - appropriate response Heart Rate response to exercise: appropriate Chest Pain: No, none Angina index: 0 Arrhythmia: No, none ST Change: No, none Deviation: 0 mm INTERPRETATION Stress EKG Conclusion: NL EST
== END 2016-09-19 10:58 | disposition home or self-care (01) | DRG 744 ==
LOC: C.ER 21:00 → C.7D 09-12 00:02 → C.6T 09-16 13:45
PROVIDERS: ADMIT Psychiatry & Neurology Psychiatry; ATTEND Hospitalist
PROC: HZ2ZZZZ Detoxification Services for Substance Abuse Treatment (ICD-10-PCS; principal; 2016-09-12)
PROC: HZ52ZZZ Individual Psychotherapy for Substance Abuse Treatment, Cognitive-Behavioral (ICD-10-PCS; 2016-09-12)
PROC: HZ59ZZZ Individual Psychotherapy for Substance Abuse Treatment, Supportive (ICD-10-PCS; 2016-09-12)
PROC: HZ56ZZZ Individual Psychotherapy for Substance Abuse Treatment, Psychoeducation (ICD-10-PCS; 2016-09-12)
DX: F11.23 Opioid dependence with withdrawal (principal); B19.20 Unspecified viral hepatitis C without hepatic coma; I50.9 Heart failure, unspecified; L97.919 Non-pressure chronic ulcer of unspecified part of right lower leg with unspecified severity; L97.929 Non-pressure chronic ulcer of unspecified part of left lower leg with unspecified severity; Q21.1 Atrial septal defect; F14.23 Cocaine dependence with withdrawal; F10.10 Alcohol abuse, uncomplicated; F32.9 Major depressive disorder, single episode, unspecified; F41.0 Panic disorder [episodic paroxysmal anxiety]; F17.210 Nicotine dependence, cigarettes, uncomplicated; Y90.0 Blood alcohol level of less than 20 mg/100 ml; Z82.3 Family history of stroke; G47.00 Insomnia, unspecified; Z91.14 Patient's other noncompliance with medication regimen

== ENCOUNTER 2016-12-15 20:27 | Inpatient (IN) | payer MEDICAID, OTHER ==
--- NOTE | 2016-12-15 21:05 | C.PDOC ---
History Of Present Illness 36 y/o female who presents to the ED for pre-screen for detox. Admits to using heroin and cocaine, last used this evening. States she injects the heroin, smokes the cocaine. No physical complaints. 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.), Seizures Denies: Diabetes, HIV, HTN, Chronic Kidney Disease, Sexually Transmitted Disease - [facility] Procedures DETOXIFICATION SERVICES FOR SUBSTANCE ABUSE TREATMENT (09/12/16) INDIV PSYCHOTHERAPY FOR SUBSTANCE ABUSE TREATMENT, SUPPORT (09/12/16) INDIV PSYCHOTHERAPY FOR SUBSTANCE ABUSE, COGNITIV BEHAVIORAL (09/12/16) INDIV PSYCHOTHERAPY FOR SUBSTANCE ABUSE, PSYCHOEDUCATION (09/12/16) Family History: States: Unknown Family Hx - Social History Hx Alcohol Use: No Hx Substance Use: Yes (Heroine and cocaine) - Immunization History Hx Tetanus Toxoid Vaccination: No Hx Influenza Vaccination: No Hx Pneumococcal Vaccination: No Review Of Systems Except As Marked, All Systems Reviewed And Found Negative. Psych: Positive for: Other (Drug abuse) Physical Exam - Physical Exam Appears: Non-toxic, No Acute Distress Skin: Normal Color, Warm, Dry Head: Atraumatic, Normacephalic Eye(s): bilateral: Normal Inspection, PERRL, EOMI Oral Mucosa: Moist Neck: Normal ROM Chest: Symmetrical Cardiovascular: Rhythm Regular, No Murmur Respiratory: Normal Breath Sounds, No Accessory Muscle Use Gastrointestinal/Abdominal: Normal Exam, Bowel Sounds, Soft, No Tenderness Back: Normal Inspection, No Vertebral Tenderness Extremity: Normal ROM, Other (track spence on skin, not infected) Neurological/Psych: Oriented x3, Normal Speech, Normal Motor, Normal Sensation Gait: Steady ED Course And Treatment - Laboratory Results Result Diagrams: 12/15/16 21:03 12/15/16 21:03 O2 Sat by Pulse Oximetry: 97 (RA) Pulse Ox Interpretation: Normal Medical Decision Making Medical Decision Making: Time: 20:56 Plan: --CMP --Magnesium --TSH --CBC --POC urine --Sodium chloride IV 1000 ml at 250 mls/hr Disposition - Disposition Disposition: HOSPITALIZED Disposition Time: 21:30 Condition: STABLE - Clinical Impression Clinical Impression: Drug abuse, Drug dependence - Scribe Statement The provider has reviewed the documentation as recorded by the Scribaman Holder All medical record entries made by the Scribe were at my direction and personally dictated by me. I have reviewed the chart and agree that the record accurately reflects my personal performance of the history, physical exam, medical decision making, and the department course for this patient. I have also personally directed, reviewed, and agree with the discharge instructions and disposition.
[2016-12-15 21:06] LABS: BASO # 0.1 K/uL (0.0-0.2); BASO % 0.8 % (0.0-2.0); EOS # 0.1 K/uL (0.0-0.7); EOS % 1.4 % (0.0-4.0); HEMATOCRIT 33.7 % (34.0-47.0); LYMPH # 1.9 K/uL (1.0-4.3); LYMPH % 30.4 % (20.0-40.0); MEAN CELL VOLUME 80.2 fL (81.0-99.0); MEAN CORPUSCULAR HEMOGLOBIN 27.3 pg (27.0-31.0); MEAN CORPUSCULAR HGB CONC 34.1 g/dL (33.0-37.0); MEAN PLATELET VOLUME 6.9 fL (7.2-11.7); MONO # 0.5 K/uL (0.0-0.8); MONO % 8.2 % (0.0-10.0); NRBC % 0.1 % (0.0-2.0); RED CELL DISTRIBUTION WIDTH 14.8 % (11.5-14.5); WHITE BLOOD COUNT 6.3 K/uL (4.8-10.8)
[2016-12-15 21:14] LABS: CHLORIDE 103 mmol/L (98-107); POTASSIUM 4.2 mmol/L (3.6-5.2); SODIUM 145 mmol/L (132-148)
[2016-12-15 21:16] LABS: GFR AFRICAN-AMERICAN > 60
[2016-12-15 21:17] LABS: ALKALINE PHOSPHATASE 89 U/L (38-126); ALT/SGPT 25 U/L (9-52); AST/SGOT 25 U/L (14-36); BILIRUBIN,TOTAL 0.4 mg/dL (0.2-1.3); BLOOD UREA NITROGEN 12 mg/dL (7-17); CALCIUM 9.3 mg/dl (8.6-10.4); CARBON DIOXIDE 29 mmol/L (22-30); GLUCOSE,RANDOM 92 mg/dL (65-105); TOTAL PROTEIN 7.4 g/dL (6.3-8.3)
[2016-12-15 21:18] LABS: ALCOHOL SERUM < 10 mg/dl (0-10)
[2016-12-15 21:21] LABS: RBC URINE 5 /hpf (0-3); URINE BACTERIA OCC (<OCC); URINE BILIRUBIN NEGATIVE (NEGATIVE); URINE BLOOD NEGATIVE (NEGATIVE); URINE CALCIUM OXALATE CRYSTALS OCC /hpf (<OCC); URINE COLOR Yellow (YELLOW); URINE GLUCOSE (UA) NORMAL (Normal); URINE KETONE NEGATIVE (NEGATIVE); URINE LEUKOCYTE ESTERASE 1+ Leu/uL (Negative); URINE PROTEIN 1+ mg/dL (NEGATIVE); URINE UROBILINOGEN NORMAL mg/dL (0.2-1.0); WBC URINE 23 /hpf (0-5)
--- NOTE | 2016-12-16 07:06 | PCM.BM ---
<Eva Beauchamp - Last Filed: 12/16/16 07:05> Treatment Plan Problems - Problems identified on initial assessmt Opiate Dependence Date Initiated: 12/16/16 Time Initiated: 00:45 Assessment reference: NA Status: Active Treatment assets and liabiliti Patient Assests: ADL independent Patient Liabilities: live alone, substance abuse - Milieu Protocol Maintain good personal hygiene: daily Encourage regular showers, daily Remind patient to perform daily oral care, daily Assist patient to perform ADL's Maintain personal safety: every shift Educate patient to report safety concerns to staff, every shift Monitor environment for contraband/sharps Medication safety: Monitor for expected outcome, potential side effects: every shift, Assess barriers to learning: every shift, Assess readiness for medication education: every shift <Mk Larson - Last Filed: 12/18/16 22:21> - Diagnosis (1) Opioid use disorder, severe, dependence Status: Acute Interventions: 12/18/16 22:21 * Assess 7x/week regarding severity of withdrawal * Educate regarding risks, benefits, side effects and alternatives of medications * Use Motivational Interviewing for abstinence * Use CBT for relapse prevention * Medication management for withdrawal symptoms * Encourage medication assisted treatment * <Rosaline Carlson - Last Filed: 12/19/16 18:08> Family Contact Family involvement: Marcusliy/SO not involved Family contact: Patient agrees to contact - Goals for Treatment Patient goals for treatment: Complete detox and transition to rehab. Prefers short-term but will consider long-term if shot-term is not available. Discharge/Continuing Care - Education Needs Education Needs: Patient Medication, Patient Diagnosis/Disease Process, Patient Coping Skills, Patient Anger Management skills, Patient Placement options, Patient Community resources - Discharge Discharge Criteria: Normal sleep pattern, Ability to care for self, No longer exhibiting s/s of withdrawal, Reduction of target symptoms Discharge to:: Substance Abuse Rehab - Treatment Team Participation Patient/Family/SO Statement: 12/19/16 18:07 "I know myself...if I get discharged to a waiting list--I'm gonna relapse." Discussed with Family/SO: No Was Patient/Family/SO present at Treatment Team Meeting: Yes
[2016-12-16] MEDS ORDERED: Aluminum Hydroxide/Magnesium Hydroxide Susp (30 mL) PO PRN (10:22)
--- NOTE | 2016-12-16 10:25 | PCM.PSYCH ---
Initial Psychiatric Evaluation - Initial Psychiatric Evaluation Type of Admission: Voluntary Legal Status: Capacity Chief Complaint (in patient's own words): 'I relapsed on heroin' History of Present Illness and Precipitating Events: Patient is a 36 years old CF who currently lives alone and currently unemployed with a long history of opiate dependence and cocaine dependence, came to the ED to get help in heroin detox. Patient reports a long history of abusing heroin and cocaine. She denies any past history of any inpatient psychiatric hospitalization and denies any history of follow-up with any psychiatrist. As per the patient she relapsed soon after her last detox from [facility] few months ago. Patient reports of injecting 50-70 bags of heroin on a daily basis, along with 1-3 gm of cocaine daily. Yesterday she injected almost 70 bags of heroin along with $200 worth cocaine, started experiencing withdrawal symptoms, so came to the hospital to get help. Patient reports of withdrawal symptoms including anxiety, nausea, abdominal cramps, joint pains, sweating and headaches. Patient reports irritable mood but denies any feelings of hopelessness or helplessness. She denies any suicidal ideation or homicidal ideation or any auditory or visual hallucinations. She denies any psychotic or manic symptoms. Denies any other substance abuse. Past medical history History of cardiomyopathy Current Medications: Active Medications Generic Name Dose Route Start Last Admin Trade Name Freq PRN Reason Stop Dose Admin Acetaminophen 650 mg 12/16/16 10:22 Tylenol 325mg Tab PO Q4H PRN Fever greater than 101 F Al Hydrox/Mg Hydrox/Simethicone 30 ml 12/16/16 10:22 Maalox 30 Ml PO TID PRN Indigestion / Heartburn Clonidine HCl 0.1 mg 12/16/16 00:04 Catapres PO Q8 PRN Opiate Withdrawals Gabapentin 100 mg 12/16/16 14:00 Neurontin PO TID BANDAR Hydroxyzine HCl 25 mg 12/16/16 00:06 Atarax PO Q6 PRN Anxiety Ibuprofen 600 mg 12/16/16 00:08 Motrin Tab PO Q6 PRN Pain, moderate (4-7) Loperamide HCl 2 mg 12/16/16 10:22 Imodium PO Q8 PRN Diarrhea Ondansetron HCl 4 mg 12/16/16 10:22 Zofran Tab PO Q8 PRN Nausea/Vomiting Pseudoephedrine HCl 60 mg 12/16/16 10:22 Sudafed Tab PO QID PRN Nasal/Sinus Congestion Trazodone HCl 50 mg 12/16/16 00:03 12/16/16 00:36 Desyrel PO 50 mg HS PRN Administration Insomnia Past Psychiatric History - Past Psychiatric History Previous Treatment History: Inpatient Pertinent Medical Hx (Current Medical&Sleep Prob, Allergies): Allergies Allergy/AdvReac Type Severity Reaction Status Date / Time haloperidol [From Haldol] Allergy Verified 06/05/15 23:44 haloperidol lactate Allergy Verified 06/05/15 23:44 [From Haldol] Review of Systems - Review of Systems All systems: reviewed and no additional remarkable complaints except - Psychiatric Psychiatric: Anxiety, Irritability, Mood Swings Mental Status Examination - Personal Presentation Personal Presentation: Looks stated age - Affect Affect: Broad - Motor Activity Motor Activity: Psychomotor Agitation - Reliability in Providing Information Reliability in Providing Information: Fair - Speech Speech: Organized - Mood Mood: Anxious - Formal Thought Process Formal Thought Process: No Impairment - Obsessions/Compulsions Obsessions: No Compulsions: No - Cognitive Functions Orientation: Person, Place, Situation, Time Sensorium: Alert Attention/Concentration: Attentive Abstract Thinking: [place] Estimate of Intelligence: Below average Judgement: Imparied, as evidence by: Poor judgement, Intact, as evidence by: Insight regarding need for hospitalization - Risk Risk: Withdrawal, Diminished functioning - Limitations Limitations: Living alone DSM 5 DX - DSM 5 DSM 5 Diagnosis: Opioid use disorder severe Opioid withdrawal Cocaine use disorder severe Bipolar disorder mixed moderate - Recommended/Plan of Treatment Treatment Recommendations and Plan of Treatment: Opioid use disorder severe CBT Psychoeducation Supportive therapy, individual therapy Use [place] for abstinence Opioid withdrawal CBT Psychoeducation Supportive therapy, individual therapy Clonidine when necessary Methadone taper Cocaine use disorder severe CBT Psychoeducation Supportive therapy, individual therapy Use [place] for abstinence Bipolar disorder mixed moderate CBT Psychoeducation Supportive therapy, group therapy, individual therapy Neurontin 300 mg by mouth 3 times a day Depakote 250 mg by mouth twice a day Trazodone 50 mg by mouth daily at bedtime History of cardiomyopathy Monitor signs and symptoms - Smoking Cessation Smoking Cessation Initiated: No
[2016-12-16] MEDS: Divalproex 250 mg DR Tab PO SCH (17:42)
[2016-12-17] MEDS: Divalproex 250 mg DR Tab PO SCH ×2 (10:16→17:13)
--- NOTE | 2016-12-17 10:18 | PCM.PYCHPN ---
Psychiatric Progress Note - Psychiatric Progress Note Patient seen today, length of contact: 16 min Patient Chief Complaint: 'I relapsed on heroin' Problems Identified/Issues Discussed: Patient seen and evaluated, chart reviewed and discussed with the nurse. The patient reports irritability and reports withdrawal symptoms including shakes, anxiety, back pains, headaches and abd cramps. She reports poor sleep, however she is tolerating the detox protocol medications and denies any feelings of hopelessness or helplessness. She denies any suicidal ideation or homicidal ideation. Medicine consulted bc of h/o endocarditis. She denies any side effects of the medications. Supportive therapy and psychoeducation were given. Medication Change: Yes (methadone taper) Medical Record Reviewed: Yes Mental Status Examination - Cognitive Function Orientation: Person, Place, Situation, Time Memory: Intact Attention: WNL Concentration: Poor Association: WNL Fund of Knowledge: Poor - Mood Mood: Anxious - Affect Affect: Broad - Speech Speech: Soft - Formal Thought Process Formal Thought Process: No Impairment - Suicidal Ideation Suicidal Ideation: No - Homicidal Ideation Homicidal Ideation: No Goal/Treatment Plan - Goal/Treatment Plan Need for Continued Stay: Discharge may exacerbated symptoms, Severe functional impairment Progress Toward Problem(s) and Goals/Treatment Plan: Opioid use disorder severe CBT Psychoeducation Supportive therapy, individual therapy Use [place] for abstinence Opioid withdrawal CBT Psychoeducation Supportive therapy, individual therapy Clonidine when necessary Methadone taper Cocaine use disorder severe CBT Psychoeducation Supportive therapy, individual therapy Use [place] for abstinence Bipolar disorder mixed moderate CBT Psychoeducation Supportive therapy, group therapy, individual therapy Neurontin 300 mg by mouth 3 times a day Depakote 250 mg by mouth twice a day Trazodone 50 mg by mouth daily at bedtime History of cardiomyopathy Monitor signs and symptoms - Smoking Cessation Smoking Cessation Initiated: No
--- NOTE | 2016-12-17 12:37 | CP.PCM.CON ---
<BrandonDeloris BrownHamlet - Last Filed: 12/17/16 16:29> History of Present Illness - History of Present Illness History of Present Illness: 36 year old female with past medical history of endocarditis who was admitted to detox on 12/15 for heroin and cocaine use. Patient states she was recently admitted in the August for detox as well and managed to stay clean for 2 months but the relapsed after a friend knocked on her door. Patient reports of injecting 50-70 bags of heroin on a daily basis, along with 1-3 gm of cocaine daily. She stated prior to coming to the hospital she injected almost 70 bags of heroin along with $200 worth cocaine, started experiencing withdrawal symptoms, so came to the hospital to get help. Patient states she wants to stay clean so that is why she admitted herself into detox 2 days ago. Patient states she was previously told her heart is not working at its full capacity and that is why she feels short of breath with mild exertion. Patient states her heart is always palpitating. Patient states she is currently nauseous but denies vomiting, chest pain or any other complaints at this time. Past Medical History: Endocarditis, Hepatitis C, bipolar, anxiety, borderline personality disorder, OCD Surgical History: 2007, plate placed in right shoulder 8 years ago, Incision and drainage 2 1/2 years ago Medications: Denies Allergies: Haldol - muscle spasms Social: Lives at home with her pitbull, heroin, cocaine usage Review of Systems - Constitutional Constitutional: absent: Fever, Headache - EENT Eyes: absent: Blurred Vision - Cardiovascular Cardiovascular: Dyspnea on Exertion, Palpitations. absent: Chest Pain, Chest Pain at Rest, Dyspnea, Lightheadedness - Respiratory Respiratory: Dyspnea on Exertion. absent: Dyspnea, Wheezing - Gastrointestinal Gastrointestinal: Nausea. absent: Constipation, Diarrhea, Heartburn, Loose Stools, Vomiting - Genitourinary Genitourinary: absent: Dysuria, Hematuria - Neurological Neurological: absent: Dizziness, Headaches - Psychiatric Psychiatric: Depression Past Patient History - Past Medical History & Family History Past Medical History?: Yes - Past Social History Smoking Status: Heavy Smoker > 10 Cigarettes Daily - CARDIAC Hx Hypertension: No - PULMONARY Hx Respiratory Disorders: No - NEUROLOGICAL Hx Seizures: Yes - HEENT Hx HEENT Problems: No - RENAL Hx Chronic Kidney Disease: No - ENDOCRINE/METABOLIC Hx Endocrine Disorders: No - HEMATOLOGICAL/ONCOLOGICAL Hx Human Immunodeficiency Virus (HIV): No - INTEGUMENTARY Hx Dermatological Problems: No - MUSCULOSKELETAL/RHEUMATOLOGICAL Hx Fractures: Yes - GASTROINTESTINAL Hx Gastrointestinal Disorders: No - GENITOURINARY/GYNECOLOGICAL Hx Sexually Transmitted Disorders: No - PSYCHIATRIC Hx Substance Use: Yes (Heroine and cocaine) - SURGICAL HISTORY Hx Surgeries: Yes Hx Section: Yes Other/Comment: Left leg I&D, , Right shoulder metal plate was inserted. - ANESTHESIA Hx Anesthesia: Yes Hx Anesthesia Reactions: No Meds Allergies/Adverse Reactions: Allergies Allergy/AdvReac Type Severity Reaction Status Date / Time haloperidol [From Haldol] Allergy Verified 06/05/15 23:44 haloperidol lactate Allergy Verified 06/05/15 23:44 [From Haldol] - Medications Medications: Current Medications Acetaminophen (Tylenol 325mg Tab) 650 mg PO Q4H PRN PRN Reason: Fever greater than 101 F Al Hydrox/Mg Hydrox/Simethicone (Maalox 30 Ml) 30 ml PO TID PRN PRN Reason: Indigestion / Heartburn Clonidine HCl (Catapres) 0.1 mg PO Q8 PRN PRN Reason: Opiate Withdrawals Divalproex Sodium (Depakote Dr) 250 mg PO BID [facility] Last Admin: 12/17/16 10:16 Dose: 250 mg Gabapentin (Neurontin) 300 mg PO TID [facility] Last Admin: 12/17/16 10:16 Dose: 300 mg Hydroxyzine HCl (Atarax) 25 mg PO Q6 PRN PRN Reason: Anxiety Ibuprofen (Motrin Tab) 600 mg PO Q6 PRN PRN Reason: Pain, moderate (4-7) Loperamide HCl (Imodium) 2 mg PO Q8 PRN PRN Reason: Diarrhea Methadone HCl (Methadone) 20 mg PO DAILY [facility] PRN Reason: Taper Stop: 12/21/16 09:59 Last Admin: 12/17/16 10:16 Dose: 20 mg Nicotine (Nicoderm Cq) 1 patch TD DAILY [facility] Last Admin: 12/17/16 10:16 Dose: 1 patch Ondansetron HCl (Zofran Tab) 4 mg PO Q8 PRN PRN Reason: Nausea/Vomiting Pseudoephedrine HCl (Sudafed Tab) 60 mg PO QID PRN PRN Reason: Nasal/Sinus Congestion Trazodone HCl (Desyrel) 100 mg PO HS PRN PRN Reason: Insomnia Last Admin: 12/16/16 21:02 Dose: 100 mg Physical Exam - Constitutional Appears: Non-toxic, Cachectic - Head Exam Head Exam: ATRAUMATIC, NORMAL INSPECTION, NORMOCEPHALIC - Eye Exam Eye Exam: EOMI, Normal appearance, PERRL Pupil Exam: NORMAL ACCOMODATION - ENT Exam ENT Exam: Mucous Membranes Moist - Respiratory Exam Respiratory Exam: Clear to Auscultation Bilateral, NORMAL BREATHING PATTERN. absent: Rales, Rhonchi, Wheezes, Stridor - Cardiovascular Exam Cardiovascular Exam: REGULAR RHYTHM, RRR, +S1, +S2 - GI/Abdominal Exam GI & Abdominal Exam: Normal Bowel Sounds, Soft. absent: Tenderness - Extremities Exam Extremities exam: Negative for: pedal edema, tenderness - Neurological Exam Neurological exam: Alert, CN II-XII Intact, Oriented x3 - Psychiatric Exam Psychiatric exam: Normal Affect, Normal Mood - Skin Skin Exam: Warm Additional comments: Multiple track spence due to IV drug abuse on lower extremities and upper extremities Results - Vital Signs Recent Vital Signs: Last Vital Signs Temp 98.0 F 12/17/16 09:00 Pulse 56 L 12/17/16 09:00 Resp 18 12/17/16 09:00 BP 107/58 L 12/17/16 09:00 Pulse Ox 99 12/17/16 09:00 - Labs Result Diagrams: 12/15/16 21:03 12/15/16 21:03 Assessment & Plan - Assessment and Plan (Free Text) Plan: 1.) History of Endocarditis - ECHO 09/12: EF 30% moderate reduced LV dysfunction, on the atrial surface of the posterior leaflet, as small mobile calcification is noted. The interatrial septum is aneurysmal. With color doppler - a patent marina ovale is noted with left to right flow. - f/u Repeat ECHO - Cardiology Consult: Dr. Valenzuela --> help appreciated 2.) Polysubstance abuse - Heroine and Cocaine - Being managed by Psychiatry --> Dr. Cardona Case Discussed with Dr. Mich Taylor PGY-1 <Perry Epps - Last Filed: 12/18/16 09:47> Meds - Medications Medications: Current Medications Acetaminophen (Tylenol 325mg Tab) 650 mg PO Q4H PRN PRN Reason: Fever greater than 101 F Al Hydrox/Mg Hydrox/Simethicone (Maalox 30 Ml) 30 ml PO TID PRN PRN Reason: Indigestion / Heartburn Clonidine HCl (Catapres) 0.1 mg PO Q8 PRN PRN Reason: Opiate Withdrawals Divalproex Sodium (Depakote Dr) 250 mg PO BID [facility] Last Admin: 12/17/16 17:13 Dose: 250 mg Gabapentin (Neurontin) 300 mg PO TID [facility] Last Admin: 12/17/16 17:14 Dose: 300 mg Hydroxyzine HCl (Atarax) 25 mg PO Q6 PRN PRN Reason: Anxiety Last Admin: 12/17/16 20:50 Dose: 25 mg Ibuprofen (Motrin Tab) 600 mg PO Q6 PRN PRN Reason: Pain, moderate (4-7) Loperamide HCl (Imodium) 2 mg PO Q8 PRN PRN Reason: Diarrhea Methadone HCl (Methadone) 20 mg PO DAILY [facility] PRN Reason: Taper Stop: 12/21/16 09:59 Last Admin: 12/17/16 10:16 Dose: 20 mg Nicotine (Nicoderm Cq) 1 patch TD DAILY [facility] Last Admin: 12/17/16 10:16 Dose: 1 patch Ondansetron HCl (Zofran Tab) 4 mg PO Q8 PRN PRN Reason: Nausea/Vomiting Pseudoephedrine HCl (Sudafed Tab) 60 mg PO QID PRN PRN Reason: Nasal/Sinus Congestion Trazodone HCl (Desyrel) 100 mg PO HS PRN PRN Reason: Insomnia Last Admin: 12/17/16 21:40 Dose: 100 mg Results - Vital Signs Recent Vital Signs: Last Vital Signs Temp 98.0 F 12/18/16 08:34 Pulse 58 L 12/18/16 08:34 Resp 18 12/18/16 08:34 BP 90/55 L 12/18/16 08:34 Pulse Ox 98 12/18/16 08:34 - Labs Result Diagrams: 12/15/16 21:03 12/15/16 21:03 Attending/Attestation - Attestation I have personally seen and examined this patient.: Yes I have fully participated in the care of the patient.: Yes I have reviewed all pertinent clinical information: Yes Notes (Text): 08/29/17 09:46 Patient was seen and examined at bedside I discussed the plan of care with the resident and agree with the consultation note. We will request cardiology evaluation Continue Management of for Drug Detox As per the Primary Team.
--- NOTE | 2016-12-18 07:52 | CP.PCM.PN ---
<Deloris Taylor - Last Filed: 12/18/16 15:11> Subjective - Date & Time of Evaluation Date of Evaluation: 12/18/16 Time of Evaluation: 07:45 - Subjective Subjective: Medicine Progress Note: Patient was seen and examined at bedside this AM. Patient stated she had substernal chest pain that started overnight. Patient stated the pain felt like someone was sitting on her chest. Patient denied radiated and stated nothing made the pain better or worse. Patient denied shortness of breath or difficulty breathing. Objective - Vital Signs/Intake and Output Vital Signs (last 24 hours): Temp Pulse Resp BP Pulse Ox 97.6 F 58 L 18 103/63 99 12/18/16 06:21 12/18/16 06:21 12/18/16 06:21 12/18/16 06:21 12/18/16 06:21 - Medications Medications: Current Medications Acetaminophen (Tylenol 325mg Tab) 650 mg PO Q4H PRN PRN Reason: Fever greater than 101 F Al Hydrox/Mg Hydrox/Simethicone (Maalox 30 Ml) 30 ml PO TID PRN PRN Reason: Indigestion / Heartburn Clonidine HCl (Catapres) 0.1 mg PO Q8 PRN PRN Reason: Opiate Withdrawals Divalproex Sodium (Depakote Dr) 250 mg PO BID [facility] Last Admin: 12/17/16 17:13 Dose: 250 mg Gabapentin (Neurontin) 300 mg PO TID [facility] Last Admin: 12/17/16 17:14 Dose: 300 mg Hydroxyzine HCl (Atarax) 25 mg PO Q6 PRN PRN Reason: Anxiety Last Admin: 12/17/16 20:50 Dose: 25 mg Ibuprofen (Motrin Tab) 600 mg PO Q6 PRN PRN Reason: Pain, moderate (4-7) Loperamide HCl (Imodium) 2 mg PO Q8 PRN PRN Reason: Diarrhea Methadone HCl (Methadone) 20 mg PO DAILY [facility] PRN Reason: Taper Stop: 12/21/16 09:59 Last Admin: 12/17/16 10:16 Dose: 20 mg Nicotine (Nicoderm Cq) 1 patch TD DAILY [facility] Last Admin: 12/17/16 10:16 Dose: 1 patch Ondansetron HCl (Zofran Tab) 4 mg PO Q8 PRN PRN Reason: Nausea/Vomiting Pseudoephedrine HCl (Sudafed Tab) 60 mg PO QID PRN PRN Reason: Nasal/Sinus Congestion Trazodone HCl (Desyrel) 100 mg PO HS PRN PRN Reason: Insomnia Last Admin: 12/17/16 21:40 Dose: 100 mg - Constitutional Appears: Well, No Acute Distress, Older Than Stated Age, Cachectic - Head Exam Head Exam: ATRAUMATIC, NORMAL INSPECTION, NORMOCEPHALIC - Eye Exam Eye Exam: EOMI, Normal appearance, PERRL Pupil Exam: NORMAL ACCOMODATION, PERRL - ENT Exam ENT Exam: Mucous Membranes Moist - Respiratory Exam Respiratory Exam: Clear to Ausculation Bilateral, NORMAL BREATHING PATTERN. absent: Rales, Rhonchi, Wheezes, Respiratory Distress, Stridor - Cardiovascular Exam Cardiovascular Exam: REGULAR RHYTHM, RRR, +S1, +S2. absent: Murmur - GI/Abdominal Exam GI & Abdominal Exam: Soft, Normal Bowel Sounds. absent: Tenderness - Extremities Exam Extremities Exam: Normal Inspection. absent: Pedal Edema, Tenderness - Neurological Exam Neurological Exam: Alert, Awake, Oriented x3 - Psychiatric Exam Psychiatric exam: Normal Affect, Normal Mood - Skin Skin Exam: Dry, Intact (bilateral upper and lower extremities contain scars of track spence due to IV drug abuse), Warm Assessment and Plan - Assessment and Plan (Free Text) Plan: 1.) History of Endocarditis - ECHO 09/12: EF 30% moderate reduced LV dysfunction, on the atrial surface of the posterior leaflet, as small mobile calcification is noted. The interatrial septum is aneurysmal. With color doppler - a patent marina ovale is noted with left to right flow. - f/u Repeat ECHO - pending report - Cardiology Consult: Dr. Valenzuela --> help appreciated 2.) Chest Pain - 12/18: EKG was normal - Continue to monitor 3.) Polysubstance abuse - Heroine and Cocaine - Being managed by Psychiatry --> Dr. Cardona Case Discussed with Dr. Mich Taylor PGY-1 <Perry Epps - Last Filed: 12/19/16 12:42> Objective - Vital Signs/Intake and Output Vital Signs (last 24 hours): Temp Pulse Resp BP Pulse Ox 97.7 F 83 18 90/60 L 100 12/19/16 09:00 12/19/16 09:00 12/19/16 09:00 12/19/16 09:00 12/19/16 09:00 - Medications Medications: Current Medications Acetaminophen (Tylenol 325mg Tab) 650 mg PO Q4H PRN PRN Reason: Fever greater than 101 F Al Hydrox/Mg Hydrox/Simethicone (Maalox 30 Ml) 30 ml PO TID PRN PRN Reason: Indigestion / Heartburn Clonidine HCl (Catapres) 0.1 mg PO Q8 PRN PRN Reason: Opiate Withdrawals Divalproex Sodium (Depakote Dr) 250 mg PO BID [facility] Last Admin: 12/19/16 09:59 Dose: 250 mg Gabapentin (Neurontin) 300 mg PO TID [facility] Last Admin: 12/19/16 09:59 Dose: 300 mg Hydroxyzine HCl (Atarax) 25 mg PO Q6 PRN PRN Reason: Anxiety Last Admin: 12/18/16 17:19 Dose: 25 mg Ibuprofen (Motrin Tab) 600 mg PO Q6 PRN PRN Reason: Pain, moderate (4-7) Loperamide HCl (Imodium) 2 mg PO Q8 PRN PRN Reason: Diarrhea Methadone HCl (Methadone) 10 mg PO DAILY [facility] PRN Reason: Taper Stop: 12/21/16 09:59 Last Admin: 12/19/16 09:59 Dose: 10 mg Nicotine (Nicoderm Cq) 1 patch TD DAILY [facility] Last Admin: 12/19/16 09:59 Dose: 1 patch Ondansetron HCl (Zofran Tab) 4 mg PO Q8 PRN PRN Reason: Nausea/Vomiting Pseudoephedrine HCl (Sudafed Tab) 60 mg PO QID PRN PRN Reason: Nasal/Sinus Congestion Trazodone HCl (Desyrel) 100 mg PO HS PRN PRN Reason: Insomnia Last Admin: 12/18/16 22:09 Dose: 100 mg Attending/Attestation - Attestation I have personally seen and examined this patient.: Yes I have fully participated in the care of the patient.: Yes I have reviewed all pertinent clinical information, including history, physical exam and plan: Yes Notes (Text): 12/19/16 12:41 Patient was seen and examined at bedside with the resident. Patient appears comfortable. Denies any chest pain or palpitation Follow-up echocardiogram report. Follow-up cardiology recommendations. No active medical issues at this time. I discussed the plan of care with the resident and agree with the assessment and plan documented.
--- NOTE | 2016-12-18 09:37 | CP.PCM.CON ---
History of Present Illness - History of Present Illness History of Present Illness: Middle aged female with history of multiple medical issues. Resting, not keen in history taking and examination. Past Patient History - Past Medical History & Family History Past Medical History?: Yes - Past Social History Smoking Status: Heavy Smoker > 10 Cigarettes Daily - CARDIAC Hx Hypertension: No - PULMONARY Hx Respiratory Disorders: No - NEUROLOGICAL Hx Seizures: Yes - HEENT Hx HEENT Problems: No - RENAL Hx Chronic Kidney Disease: No - ENDOCRINE/METABOLIC Hx Endocrine Disorders: No - HEMATOLOGICAL/ONCOLOGICAL Hx Human Immunodeficiency Virus (HIV): No - INTEGUMENTARY Hx Dermatological Problems: No - MUSCULOSKELETAL/RHEUMATOLOGICAL Hx Fractures: Yes - GASTROINTESTINAL Hx Gastrointestinal Disorders: No - GENITOURINARY/GYNECOLOGICAL Hx Sexually Transmitted Disorders: No - PSYCHIATRIC Hx Substance Use: Yes (Heroine and cocaine) - SURGICAL HISTORY Hx Surgeries: Yes Hx Section: Yes Other/Comment: Left leg I&D, , Right shoulder metal plate was inserted. - ANESTHESIA Hx Anesthesia: Yes Hx Anesthesia Reactions: No Meds Allergies/Adverse Reactions: Allergies Allergy/AdvReac Type Severity Reaction Status Date / Time haloperidol [From Haldol] Allergy Verified 06/05/15 23:44 haloperidol lactate Allergy Verified 06/05/15 23:44 [From Haldol] - Medications Medications: Current Medications Acetaminophen (Tylenol 325mg Tab) 650 mg PO Q4H PRN PRN Reason: Fever greater than 101 F Al Hydrox/Mg Hydrox/Simethicone (Maalox 30 Ml) 30 ml PO TID PRN PRN Reason: Indigestion / Heartburn Clonidine HCl (Catapres) 0.1 mg PO Q8 PRN PRN Reason: Opiate Withdrawals Divalproex Sodium (Depakote Dr) 250 mg PO BID [facility] Last Admin: 12/17/16 17:13 Dose: 250 mg Gabapentin (Neurontin) 300 mg PO TID [facility] Last Admin: 12/17/16 17:14 Dose: 300 mg Hydroxyzine HCl (Atarax) 25 mg PO Q6 PRN PRN Reason: Anxiety Last Admin: 12/17/16 20:50 Dose: 25 mg Ibuprofen (Motrin Tab) 600 mg PO Q6 PRN PRN Reason: Pain, moderate (4-7) Loperamide HCl (Imodium) 2 mg PO Q8 PRN PRN Reason: Diarrhea Methadone HCl (Methadone) 20 mg PO DAILY [facility] PRN Reason: Taper Stop: 12/21/16 09:59 Last Admin: 12/17/16 10:16 Dose: 20 mg Nicotine (Nicoderm Cq) 1 patch TD DAILY [facility] Last Admin: 12/17/16 10:16 Dose: 1 patch Ondansetron HCl (Zofran Tab) 4 mg PO Q8 PRN PRN Reason: Nausea/Vomiting Pseudoephedrine HCl (Sudafed Tab) 60 mg PO QID PRN PRN Reason: Nasal/Sinus Congestion Trazodone HCl (Desyrel) 100 mg PO HS PRN PRN Reason: Insomnia Last Admin: 12/17/16 21:40 Dose: 100 mg Physical Exam - Constitutional Appears: Non-toxic - Head Exam Head Exam: NORMOCEPHALIC - Neck Exam Neck exam: Positive for: Normal Inspection - Respiratory Exam Respiratory Exam: NORMAL BREATHING PATTERN - Cardiovascular Exam Cardiovascular Exam: REGULAR RHYTHM - Extremities Exam Extremities exam: Positive for: normal inspection - Neurological Exam Neurological exam: Alert, Oriented x3 Results - Vital Signs Recent Vital Signs: Last Vital Signs Temp 98.0 F 12/18/16 08:34 Pulse 58 L 12/18/16 08:34 Resp 18 12/18/16 08:34 BP 90/55 L 12/18/16 08:34 Pulse Ox 98 12/18/16 08:34 - Labs Result Diagrams: 12/15/16 21:03 12/15/16 21:03 Assessment & Plan (1) Abnormal echocardiogram Assessment and Plan: Reviewed echocardiogram and report. Normal L V systolic function and no significant abnormality seen. AT present cardiac groves no issues. Need to address underlying psych issues and behaviour modification. Status: Acute - Assessment and Plan (Free Text) Assessment: All her complications are due to substance abuse. Needs behaviour modification and medicien compliance. will review old record and make further recommendation.
[2016-12-18] MEDS: Divalproex 250 mg DR Tab PO SCH ×2 (11:00→17:19)
--- NOTE | 2016-12-18 15:33 | PCM.PYCHPN ---
Psychiatric Progress Note - Psychiatric Progress Note Patient seen today, length of contact: 16 min Patient Chief Complaint: "I relapsed on heroin" Problems Identified/Issues Discussed: The pt is seen, chart reviewed, case discussed with staff. Pt refused to leave her bed to speak with the doctor because she wanted to sleep. She agreed to answer several questions at bedside. The pt is compliant with medications and reports no side-effects. Symptoms are improving but needs more time to stabilize. She currently does not have any plans for after discharge. After care discussed, support and psychoeducation given. Medication Change: Yes (methadone taper) Medical Record Reviewed: Yes Mental Status Examination - Cognitive Function Orientation: Person, Place, Situation, Time Memory: Intact Attention: WNL Concentration: Poor Association: WNL Fund of Knowledge: Poor - Mood Mood: Anxious - Affect Affect: Broad - Speech Speech: Soft - Formal Thought Process Formal Thought Process: No Impairment - Suicidal Ideation Suicidal Ideation: No - Homicidal Ideation Homicidal Ideation: No Goal/Treatment Plan - Goal/Treatment Plan Need for Continued Stay: Discharge may exacerbated symptoms, Severe functional impairment Progress Toward Problem(s) and Goals/Treatment Plan: Opioid use disorder severe CBT Psychoeducation Supportive therapy, individual therapy Use PA for abstinence Opioid withdrawal CBT Psychoeducation Supportive therapy, individual therapy Clonidine when necessary Methadone taper Cocaine use disorder severe CBT Psychoeducation Supportive therapy, individual therapy Use PA for abstinence Bipolar disorder mixed moderate CBT Psychoeducation Supportive therapy, group therapy, individual therapy Neurontin 300 mg by mouth 3 times a day Depakote 250 mg by mouth twice a day Trazodone 50 mg by mouth daily bedtime History of cardiomyopathy Monitor signs and symptoms
--- NOTE | 2016-12-18 18:16 | CARD ---
APPROVED REPORT EXAM: Two-dimensional and M-mode echocardiogram with Doppler and color Doppler. Other Information Quality : [employer] : INDICATION ENDOCARDITIS - DRUG ABUSE M-Mode DIMENSIONS RVDd2.03 (2.1-3.2cm)Left Atrium (MM)3.52 (2.5-4.0cm) IVSd0.68 (0.7-1.1cm)Aortic Root2.51 (2.2-3.7cm) LVDd5.16 (4.0-5.6cm)Aortic Cusp Exc.2.14 (1.5-2.0cm) PWd0.85 (0.7-1.1cm)FS (%) 34 % LVDs3.38 (2.0-3.8cm)LVEF (%)63 (>50%) Mitral Valve MV E Mvuybkms02.0cm/sMV A Gfwssvxu22.8cm/sE/A ratio1.6 TDI E/Lateral E'0.0E/Medial E'0.0 Tricuspid Valve TR Peak [id number]/sTR Peak [id number] LEFT VENTRICLE The left ventricle is normal size. Left ventricle systolic function is normal. The Ejection Fraction is 60-65%. The left ventricular diastolic function is normal. No left ventricle thrombus noted on this study. There is no ventricular septal defect visualized. RIGHT VENTRICLE The right ventricle is normal size. The right ventricular systolic function is normal. ATRIA The left atrium size is normal. The right atrium size is normal. Interatrial septum aneurysmal. PFO with left to right shunt noted AORTIC VALVE The aortic valve is normal in structure. No aortic regurgitation is present. There is no aortic valvular stenosis. There is no aortic valvular vegetation. MITRAL VALVE The mitral valve is normal in structure. There is no evidence of mitral valve prolapse. There is no mitral valve stenosis. Mitral regurgitation is mild. TRICUSPID VALVE There is mild tricuspid regurgitation. Posterior leaflet mass. Likely calcification. Unchanged compared with prior ECHO There is no tricuspid valve stenosis. PULMONIC VALVE The pulmonary valve is normal in structure. GREAT VESSELS The aortic root is normal in size. <Conclusion> Left ventricle systolic function is normal. The Ejection Fraction is 60-65%. The right ventricular systolic function is normal. Interatrial septum aneurysmal. PFO with left to right shunt noted Posterior trcuspid leaflet mass. Likely calcification. Unchanged compared with prior ECHO There is mild tricuspid regurgitation. There is no tricuspid valve stenosis.
[2016-12-19] MEDS: Divalproex 250 mg DR Tab PO SCH ×2 (09:59→17:02)
--- NOTE | 2016-12-19 11:18 | CP.PCM.PN ---
<Deloris Taylor - Last Filed: 12/19/16 15:44> Subjective - Date & Time of Evaluation Date of Evaluation: 12/19/16 Time of Evaluation: 09:00 - Subjective Subjective: Medicine Progress Note: Patient was seen and examined in the AM. Per nurse there were no acute events overnight. Patient states she is feeling much better. Patient denies chest pain, palpitations, nausea, vomiting, diarrhea, or constipation. Discussed with patient in regards to the [facility] for family medicine. Patient stated she will follow up and will come for her yearly physical in the clinic. Objective - Vital Signs/Intake and Output Vital Signs (last 24 hours): Temp Pulse Resp BP Pulse Ox 97.7 F 83 18 90/60 L 100 12/19/16 09:00 12/19/16 09:00 12/19/16 09:00 12/19/16 09:00 12/19/16 09:00 - Medications Medications: Current Medications Acetaminophen (Tylenol 325mg Tab) 650 mg PO Q4H PRN PRN Reason: Fever greater than 101 F Al Hydrox/Mg Hydrox/Simethicone (Maalox 30 Ml) 30 ml PO TID PRN PRN Reason: Indigestion / Heartburn Clonidine HCl (Catapres) 0.1 mg PO Q8 PRN PRN Reason: Opiate Withdrawals Divalproex Sodium (Depakote Dr) 250 mg PO BID [facility] Last Admin: 12/19/16 09:59 Dose: 250 mg Gabapentin (Neurontin) 300 mg PO TID [facility] Last Admin: 12/19/16 09:59 Dose: 300 mg Hydroxyzine HCl (Atarax) 25 mg PO Q6 PRN PRN Reason: Anxiety Last Admin: 12/18/16 17:19 Dose: 25 mg Ibuprofen (Motrin Tab) 600 mg PO Q6 PRN PRN Reason: Pain, moderate (4-7) Loperamide HCl (Imodium) 2 mg PO Q8 PRN PRN Reason: Diarrhea Methadone HCl (Methadone) 10 mg PO DAILY [facility] PRN Reason: Taper Stop: 12/21/16 09:59 Last Admin: 12/19/16 09:59 Dose: 10 mg Nicotine (Nicoderm Cq) 1 patch TD DAILY [facility] Last Admin: 12/19/16 09:59 Dose: 1 patch Ondansetron HCl (Zofran Tab) 4 mg PO Q8 PRN PRN Reason: Nausea/Vomiting Pseudoephedrine HCl (Sudafed Tab) 60 mg PO QID PRN PRN Reason: Nasal/Sinus Congestion Trazodone HCl (Desyrel) 100 mg PO HS PRN PRN Reason: Insomnia Last Admin: 12/18/16 22:09 Dose: 100 mg - Constitutional Appears: Well, No Acute Distress, Cachectic - Head Exam Head Exam: ATRAUMATIC, NORMAL INSPECTION, NORMOCEPHALIC - Eye Exam Eye Exam: EOMI, Normal appearance, PERRL Pupil Exam: NORMAL ACCOMODATION, PERRL - ENT Exam ENT Exam: Mucous Membranes Moist - Respiratory Exam Respiratory Exam: Clear to Ausculation Bilateral, NORMAL BREATHING PATTERN. absent: Rales, Rhonchi, Wheezes, Respiratory Distress, Stridor - Cardiovascular Exam Cardiovascular Exam: REGULAR RHYTHM, RRR, +S1, +S2 - GI/Abdominal Exam GI & Abdominal Exam: Soft, Normal Bowel Sounds. absent: Tenderness - Extremities Exam Extremities Exam: Normal Inspection. absent: Pedal Edema, Tenderness - Neurological Exam Neurological Exam: Alert, Awake, Oriented x3 - Psychiatric Exam Psychiatric exam: Normal Affect, Normal Mood - Skin Skin Exam: Normal Color, Warm Additional comments: bilateral upper and lower extremities contain scars of track spence due to IV drug abuse Assessment and Plan - Assessment and Plan (Free Text) Plan: Per Patient's normal EKG, repeat ECHO which showed a normal ejection fraction and Dr. Valenzuela's assessment we are signing off on this patient. Please contact us for any further assistance. 1.) History of Endocarditis - ECHO 09/12: EF 30% moderate reduced LV dysfunction, on the atrial surface of the posterior leaflet, as small mobile calcification is noted. The interatrial septum is aneurysmal. With color doppler - a patent marina [place] is noted with left to right flow. - Repeat ECHO (12/17/16): 63% ejection fraction; left ventricle is normal size. - Cardiology Consult: Dr. Valenzuela --> help appreciated - Per Dr. Valenzuela's note: Patient's complications are due to substance abuse. Needs behaviour modification and medicien compliance. will review old record and make further recommendation. 2.) Chest Pain - 12/18: EKG was normal 3.) Polysubstance abuse - Heroine and Cocaine - Being managed by Psychiatry --> Dr. Cardona Case Discussed with Dr. Mich Taylor PGY-1 <Perry Epps - Last Filed: 12/20/16 15:05> Objective - Vital Signs/Intake and Output Vital Signs (last 24 hours): Temp Pulse Resp BP Pulse Ox 97.2 F L 70 17 103/66 98 12/20/16 08:37 12/20/16 08:37 12/20/16 08:37 12/20/16 08:37 12/20/16 08:37 Attending/Attestation - Attestation I have personally seen and examined this patient.: Yes I have fully participated in the care of the patient.: Yes I have reviewed all pertinent clinical information, including history, physical exam and plan: Yes Notes (Text): 12/20/16 15:04 Patient was seen and examined at bedside. No suspicion of for infective endocarditis at this time Echocardiogram report reviewed. Likely old calcification seen on the valves. Patient to follow up with cardiology upon discharge I discussed the plan of care with the resident and agree with the assessment and plan. Medical's team will sign off at this time and please reconsult as needed.
--- NOTE | 2016-12-19 15:11 | PCM.PYCHPN ---
Psychiatric Progress Note - Psychiatric Progress Note Patient seen today, length of contact: 16 min Patient Chief Complaint: "I am so so" Problems Identified/Issues Discussed: Pt is seen, chart reviewed, case discussed with staff. Pt is compliant with medications and reports no side effects. Pt currently denies symptoms of withdrawal, stating "Whenever I do the methadone taper I feel fine." Symptoms are improving but pt needs more time to stablize. After care discussed. Pt is interested in long-term 6 month rehab. She is pending for admission at [facility] in [place], [place]. Also [facility]. States that her only hesitation is being without her dog but is confident that a friend of hers will take care of him during rehab. Support and psychoeducation given. Medication Change: Yes (detox changes daily) Medical Record Reviewed: Yes Mental Status Examination - Cognitive Function Orientation: Person, Place, Situation, Time Memory: Intact Attention: WNL Concentration: WNL Association: WNL Fund of Knowledge: WNL - Mood Mood: Anxious - Affect Affect: Broad - Speech Speech: Appropriate - Formal Thought Process Formal Thought Process: No Impairment - Suicidal Ideation Suicidal Ideation: No - Homicidal Ideation Homicidal Ideation: No Goal/Treatment Plan - Goal/Treatment Plan Need for Continued Stay: Discharge may exacerbated symptoms, Severe functional impairment Progress Toward Problem(s) and Goals/Treatment Plan: Opioid use disorder severe CBT Psychoeducation Supportive therapy, individual therapy Use [place] for abstinence Opioid withdrawal Psychoeducation Supportive therapy, individual therapy Clonidine when necessary Methadone taper Cocaine use disorder severe CBT Psychoeducation Supportive therapy, individual therapy Use [place] for abstinence Bipolar disorder mixed moderate CBT Psychoeducation Supportive therapy, group therapy, individual therapy Neurontin 300 mg by mouth 3 times a day Depakote 250 mg by mouth twice a day Trazodone 50 mg by mouth daily bedtime History of cardiomyopathy Monitor signs and symptoms
--- NOTE | 2016-12-20 08:35 | PCM.PYCHDC ---
Mental Status Examination - Mental Status Examination Orientation: Person, Place, Situation, Time Memory: Intact Mood: Anxious Affect: Broad Speech: Appropriate Attention: WNL Concentration: WNL Association: WNL Fund of Knowledge: WNL Formal Thought Process: No Impairment Suicidal Ideation: No Current Homicidal Ideation?: No Discharge Summary - Discharge Note Reason for Hospitalization: Long history of heroin and cocaine dependence with recent withdrawal and desire for detox Psychiatric History (includes Medical, Family, Personal Hx): Detox at [facility] a few months ago (unspecified) Consultations:: List each consultation separately and include: 1. Reason for request. 2. Findings. 3. Follow-up Consultations: Consultation with cardiology for history of cardiomyopathy. Cardic workup found to be normal; determined that pt's complications due to substance abuse Summary of Hospital Course include:: 1. Description of specific treatment plan utilized for patients during their course of treatmen. 2. Summarize the time- course for resolution of acute symptoms and/or regressed behaviors. 3. Describe issues identified and worked on during hospitalization. 4. Describe medication utilized. 5. Describe medical problems identified and treated. 6. Reassessment of suicide risk Summary of Hospital Course: Pt was admitted for long history of heroin dependence with recent experience of withdrawal and desire for detox. Pt started on treatment with psychotherapy, support, psychoeducation and medications. IA and CBT used. Pt attended groups and activities, as well as milieu therapy. All the risks and benefits of medications are discussed and pt understood and agreed. Pt improved with the treatments provided. Pt reports to feeling well and currently denies withdrawal. After care discussed with pt. Pt agrees to try 6 month rehab at [facility] in [facility] Pt accepts that she will not be be able to attend [facility] if discharged on meds. Pt counseled on visiting walk-in clinic in [facility] if she experienced withdrawal. - Diagnosis (1) Opioid use disorder, severe, dependence Status: Acute - Final Diagnosis (DSM 5) Condition upon Discharge: STABLE DSM 5: Opioid use disorder, severe Opioid withdrawal Cocaine use disorder Bipolar disorder mixed moderate Disposition: REHAB FACILITY/REHAB UNIT Follow-up Treatment Plan: Continue below medications after discharge. Follow up care plan as discussed. Use relapse prevention skills. Return to ER or call 911 if suicidal, homicidal or symptoms relapse. Stay away from stress, alcohol and drugs. See primary doctor once a year. - Smoking Cessation Smoking Cessation Medication prescribed: No - Antipsychotic Medications Pt discharged on 2 or more routine antipsychotic medications: No
[2016-12-20 08:38] VITALS: BP 103/66; PULSE 70; RESP 17; TEMP 97.2; O2SAT 98
[2016-12-20] MEDS: Divalproex 250 mg DR Tab PO SCH (09:14)
== END 2016-12-20 09:20 | DRG 744 ==
LOC: C.ER 20:27 → C.7D 22:32
PROVIDERS: ADMIT Psychiatry & Neurology Psychiatry; ATTEND Psychiatry & Neurology Psychiatry
DX: F11.23 Opioid dependence with withdrawal (principal); I42.9 Cardiomyopathy, unspecified; I38 Endocarditis, valve unspecified; F31.62 Bipolar disorder, current episode mixed, moderate; F14.90 Cocaine use, unspecified, uncomplicated; F17.210 Nicotine dependence, cigarettes, uncomplicated

== ENCOUNTER 2017-06-17 00:16 | Inpatient (IN) | payer MEDICAID, OTHER ==
--- NOTE | 2017-06-17 01:39 | C.PDOC ---
History Of Present Illness Patient came requesting detox of opiates. Time Seen by Provider: 06/17/17 01:38 Chief Complaint (Nursing): Substance Abuse History Per: Patient History/Exam Limitations: no limitations Onset/Duration Of Symptoms: Hrs Current Symptoms Are (Timing): Better Suicide/Self Injury Attempted (Context): None Modifying Factor(s): Narcotics, Cocaine Severity: Moderate Pain Scale Rating Of: 0 Associated Symptoms: denies: Anxiety, Agitation, Depression, Paranoia, Suicidal Thoughts Involuntary Hold By: None Recent travel outside of the [place]: No Additional History Per: Patient Past Medical History Vital Signs: Last Vital Signs Temp 98 F 06/17/17 00:38 Pulse 87 06/17/17 00:38 Resp 20 06/17/17 00:38 BP 114/70 06/17/17 00:38 Pulse Ox 98 06/17/17 01:41 - Medical History PMH: Fractures, Hepatitis (Hep C from using someone elses needle.), Seizures Denies: Diabetes, HIV, HTN, Chronic Kidney Disease, Sexually Transmitted Disease Surgical History: No Surg Hx - [facility] DETOXIFICATION SERVICES FOR SUBSTANCE ABUSE TREATMENT (09/12/16) INDIV PSYCHOTHERAPY FOR SUBSTANCE ABUSE TREATMENT, SUPPORT (09/12/16) INDIV PSYCHOTHERAPY FOR SUBSTANCE ABUSE, COGNITIV BEHAVIORAL (09/12/16) INDIV PSYCHOTHERAPY FOR SUBSTANCE ABUSE, PSYCHOEDUCATION (09/12/16) Family History: States: Unknown Family Hx - Social History Hx Alcohol Use: No Hx Substance Use: Yes (Heroine and cocaine) - Immunization History Hx Tetanus Toxoid Vaccination: No Hx Influenza Vaccination: No Hx Pneumococcal Vaccination: No Review Of Systems Constitutional: Negative for: Fever, Chills, Sweats Eyes: Negative for: Pain, Vision Change Cardiovascular: Negative for: Chest Pain, Palpitations Respiratory: Negative for: Cough, Shortness of Breath, Hemoptysis Gastrointestinal: Negative for: Nausea, Vomiting, Abdominal Pain, Diarrhea Genitourinary: Negative for: Dysuria Skin: Negative for: Rash Neurological: Negative for: Weakness, Numbness, Incoordination, Change in Speech Psych: Negative for: Anxiety, Depression, Psychosis, Suicidal ideation, Withdrawal Physical Exam - Physical Exam Appears: Well, Non-toxic, No Acute Distress Skin: Normal Color Nose: Normal Throat: Normal Neck: Normal Chest: Symmetrical, No Deformity, No Tenderness, No Ecchymosis Cardiovascular: Rhythm Regular, No Friction Rub, No Murmur Respiratory: Normal Breath Sounds Gastrointestinal/Abdominal: Normal Exam Back: Normal Inspection Extremity: Normal ROM ED Course And Treatment - Laboratory Results Result Diagrams: 06/17/17 03:24 06/17/17 03:24 O2 Sat by Pulse Oximetry: 98 Disposition Discussed With : Tian Garnica Doctor Will See Patient In The: Hospital Counseled Patient/Family Regarding: Diagnosis - Disposition Disposition: HOSPITALIZED Disposition Time: 03:56 Condition: STABLE Forms: [facility] (Bulgarian) - POA Present On Arrival: None - Clinical Impression Clinical Impression: Opiate use, Cocaine abuse
[2017-06-17 01:55] LABS: SQUAMOUS EPITHIAL 5 /hpf (0-5); URINE BILIRUBIN NEGATIVE (NEGATIVE); URINE BLOOD NEGATIVE (NEGATIVE); URINE CLARITY Hazy (Clear); URINE COLOR Yellow (YELLOW); URINE GLUCOSE (UA) NORMAL (Normal); URINE LEUKOCYTE ESTERASE TRACE Leu/uL (Negative); URINE NITRATE NEGATIVE (NEGATIVE); URINE PROTEIN NEGATIVE (NEGATIVE); URINE UROBILINOGEN NORMAL mg/dL (0.2-1.0)
[2017-06-17 01:56] LABS: HCG,QUALITATIVE URINE NEGATIVE (NEGATIVE)
[2017-06-17 02:07] LABS: BARBITURATES, UR NEGATIVE (NEGATIVE); BENZODIAZEPINES, UR NEGATIVE (NEGATIVE); PHENCYCLIDINE, UR NEGATIVE (NEGATIVE)
[2017-06-17 02:53] LABS: OPIATES, UR POSITIVE (NEGATIVE)
[2017-06-17 03:28] LABS: BASO # 0.1 K/uL (0.0-0.2); BASO % 1.4 % (0.0-2.0); EOS # 0.1 K/uL (0.0-0.7); EOS % 1.1 % (0.0-4.0); HEMOGLOBIN 11.1 g/dL (11.0-16.0); LYMPH % 32.5 % (20.0-40.0); MEAN CELL VOLUME 81.3 fL (81.0-99.0); MEAN CORPUSCULAR HEMOGLOBIN 27.8 pg (27.0-31.0); MEAN CORPUSCULAR HGB CONC 34.2 g/dL (33.0-37.0); MEAN PLATELET VOLUME 7.4 fL (7.2-11.7); MONO # 0.5 K/uL (0.0-0.8); MONO % 7.8 % (0.0-10.0); NEUT # 3.6 K/uL (1.8-7.0); NEUT % 57.2 % (50.0-75.0); RBC 3.98 Mil/uL (3.80-5.20); RED CELL DISTRIBUTION WIDTH 14.9 % (11.5-14.5); WHITE BLOOD COUNT 6.3 K/uL (4.8-10.8)
[2017-06-17 03:47] LABS: ALB/GLOB RATIO 1.1 (1.0-2.1); ALBUMIN 3.8 g/dL (3.5-5.0); ALT/SGPT 21 U/L (9-52); AST/SGOT 23 U/L (14-36); BLOOD UREA NITROGEN 13 mg/dL (7-17); CALCIUM 8.7 mg/dl (8.6-10.4); GFR AFRICAN-AMERICAN > 60; GFR NON-AFRICAN AMERICAN > 60
--- NOTE | 2017-06-17 05:58 | PCM.BM ---
<Eva Beauchamp Magda - Last Filed: 06/17/17 05:56> Treatment Plan Problems - Problems identified on initial assessmt Opiate Dependence Date Initiated: 06/17/17 Time Initiated: 05:57 Assessment reference: NA Status: Active Treatment assets and liabiliti Patient Assests: ADL independent Patient Liabilities: dietary restrictions, substance abuse, medical problems - Milieu Protocol Maintain good personal hygiene: daily Encourage regular showers, daily Remind patient to perform daily oral care, daily Assist patient to perform ADL's Maintain personal safety: every shift Educate patient to report safety concerns to staff, every shift Monitor environment for contraband/sharps Medication safety: Monitor for expected outcome, potential side effects: every shift, Assess barriers to learning: every shift, Assess readiness for medication education: every shift <Rosaline Carlson - Last Filed: 06/19/17 08:05> Family Contact Family involvement: Family/SO is involved Family contact: Patient agrees to contact - Goals for Treatment Patient goals for treatment: Complete detox and apply for [facility] rehab program. Discharge/Continuing Care - Education Needs Education Needs: Patient Medication, Patient Diagnosis/Disease Process, Patient Coping Skills, Patient Anger Management skills, Patient Placement options, Patient Community resources - Discharge Discharge Criteria: No longer exhibiting s/s of withdrawal, Reduction of target symptoms Discharge to:: Substance Abuse Rehab - Treatment Team Participation Patient/Family/SO Statement: 06/19/17 08:06 "I need to go to rehab from here..." Discussed with Family/SO: No Was Patient/Family/SO present at Treatment Team Meeting: Yes <Mk Larson - Last Filed: 06/19/17 22:34> - Diagnosis (1) Opioid use disorder, severe, dependence Status: Acute Interventions: 06/19/17 22:34 * Assess 7x/week regarding severity of withdrawal * Educate regarding risks, benefits, side effects and alternatives of medications * Use Motivational Interviewing for abstinence * Use CBT for relapse prevention * Medication management for withdrawal symptoms * Encourage medication assisted treatment *
[2017-06-17] MEDS ORDERED: Aluminum Hydroxide/Magnesium Hydroxide Susp (30 mL) PO PRN (10:02)
--- NOTE | 2017-06-17 11:24 | PCM.PSYCH ---
Initial Psychiatric Evaluation - Initial Psychiatric Evaluation Type of Admission: Voluntary Legal Status: Capacity Chief Complaint (in patient's own words): "I want to get clean" History of Present Illness and Precipitating Events: 37y y.o female single with an 11 year old son, who is employed as a orthopedic surgeon , and living in a home presented to the ED yesterday requesting detox from heroin. She has been using heroin for the last 17 years about 60-90 bags daily via injection. She also uses cocaine about a dime daily via injection. She denies any other drug use and alcohol use. She smokes about a pack daily and requested a patch. She has been to detox about 3-4 times and the most recent detox was in January 2017 when she entered [facility] following detox and was kicked out after 2 months due to cursing. She relapsed 3 weeks ago. Her longest sobriety was 3-4 years while in halfway. She last used at 1 pm yesterday (06/16). She spoke about her fiance who committed suicide about 9 years ago. She complains of severe weight loss and requested additional weight supplements. She plans to go back to [place] following detox. Detox Hx: 3-4 years Rehab Hx: 1 time at a very young age Medical Hx: NA Medications: NA Psych Hx: Borderline personality d/o, PTSD, Depression, Anxiety Fam Hx: Father had substance abuse d/o but has been clean for 20 years now Current Medications: Active Medications Generic Name Dose Route Start Last Admin Trade Name Freq PRN Reason Stop Dose Admin Al Hydrox/Mg Hydrox/Simethicone 30 ml 06/17/17 10:02 Maalox 30 Ml PO TID PRN Indigestion / Heartburn Clonidine HCl 0.1 mg 06/17/17 10:02 Catapres PO Q8 PRN COWS Score More or Equal to 5 Gabapentin 300 mg 06/17/17 14:00 Neurontin PO TID [facility] Hydroxyzine HCl 50 mg 06/17/17 10:03 Atarax PO Q6H PRN Anxiety Ibuprofen 600 mg 06/17/17 10:03 Motrin Tab PO Q6H PRN Pain, moderate (4-7) Loperamide HCl 2 mg 06/17/17 10:02 Imodium PO Q8 PRN Diarrhea Nicotine 1 patch 06/17/17 10:45 Nicoderm Cq TD DAILY [facility] Ondansetron HCl 4 mg 06/17/17 10:02 Zofran Tab PO Q8 PRN Nausea/Vomiting Trazodone HCl 100 mg 06/17/17 22:00 Desyrel PO HS [facility] Past Psychiatric History - Past Psychiatric History Pertinent Medical Hx (Current Medical&Sleep Prob, Allergies): Allergies Allergy/AdvReac Type Severity Reaction Status Date / Time haloperidol [From Haldol] Allergy Verified 06/17/17 00:41 haloperidol lactate Allergy Verified 06/17/17 00:41 [From Haldol] Review of Systems - Constitutional Constitutional: Other (weight loss) - Integumentary Integumentary: Other (bruising lower extremity) - Neurological Neurological: absent: Weakness - Psychiatric Psychiatric: Depression. absent: Anxiety, Confusion, Hallucinations, Irritability, Paranoia, Suicidal Ideation, Visual Hallucinations, Tactile Hallucinations Mental Status Examination - Personal Presentation Personal Presentation: Looks older than stated age - Affect Affect: Broad - Motor Activity Motor Activity: Calm - Reliability in Providing Information Reliability in Providing Information: Good - Speech Speech: Organized - Mood Mood: Neutral - Formal Thought Process Formal Thought Process: No Impairment - Obsessions/Compulsions Obsessions: No Compulsions: No - Cognitive Functions Orientation: Person, Place, Situation, Time Sensorium: Alert Attention/Concentration: Attentive Abstract Thinking: [place] Judgement: Intact, as evidence by: Insight regarding need for hospitalization Memory: Recent intact, as evidence by: Ability to recall events of the day, Remote intact, as evidenced by: Abilit to recall sig. life events - Risk Risk: Withdrawal - Strength & Assets Inventory Strength & Assets Inventory: Family support, Employment status, Employment history, Skills, Life experience, Cooperative DSM 5 DX - DSM 5 DSM 5 Diagnosis: Opioid Withdrawal Opioid Use d/o - severe Cocaine use d/o Anxiety d/o - unspecified Depression d/o - severe Nicotine use d.o Borderline Personality traits - Recommended/Plan of Treatment Treatment Recommendations and Plan of Treatment: Heroin detox - methadone taper Gabapentin for augmentation As needed medications All risks, benefits and alternatives of the meds discussed, and the pt agreed and understood. Attend groups and activities Supportive therapy and psychoeducation [place] for abstinence CBT for relapse prevention Encourage MAT Refer to rehab or IOP, and self-help groups Smoking cessation with [place] Nicotine patch 34 min Projected ELOS: 4-5 days Prognosis: good with treatment Discharge Plan and Discharge Criteria: [facility] - Smoking Cessation Smoking Cessation Initiated: Yes
--- NOTE | 2017-06-18 13:52 | PCM.PYCHPN ---
Psychiatric Progress Note - Psychiatric Progress Note Patient seen today, length of contact: 16 min Patient Chief Complaint: "I'm okay." Problems Identified/Issues Discussed: The pt is seen, chart reviewed, case discussed with staff. Support given, CBT and [place] used briefly. She reports sleeping well last night and denies any signs of withdrawal. No new symptoms reported, improving slowly and needs more time. No SEs from medications, risks discussed. After care discussed Medication Change: Yes (detox changes daily) Medical Record Reviewed: Yes Mental Status Examination - Cognitive Function Orientation: Person, Place, Situation, Time Memory: Intact Attention: WNL Concentration: WNL Association: WNL Fund of Knowledge: WNL - Mood Mood: Neutral - Affect Affect: Broad - Speech Speech: Appropriate - Language Language: Word Retrieval - Formal Thought Process Formal Thought Process: No Impairment - Suicidal Ideation Suicidal Ideation: No - Homicidal Ideation Homicidal Ideation: No Goal/Treatment Plan - Goal/Treatment Plan Need for Continued Stay: Remain at risks for inpatient hospitalization, Discharge may exacerbated symptoms Progress Toward Problem(s) and Goals/Treatment Plan: Heroin detox - methadone taper Gabapentin for augmentation As needed medications All risks, benefits and alternatives of the meds discussed, and the pt agreed and understood. Attend groups and activities Supportive therapy and psychoeducation [place] for abstinence CBT for relapse prevention Encourage MAT Refer to rehab or IOP, and self-help groups Smoking cessation with [place] Nicotine patch Estimated Date of D/C: 06/20/17 - Smoking Cessation Smoking Cessation Initiated: Yes
--- NOTE | 2017-06-19 14:15 | PCM.PYCHPN ---
Psychiatric Progress Note - Psychiatric Progress Note Patient seen today, length of contact: 17 min Patient Chief Complaint: "I feel okay" Problems Identified/Issues Discussed: The pt is seen, chart reviewed, case discussed with staff. Support given, CBT and PR used briefly Patient states that she feels okay and is sleeping well. She is otherwise without complaints. Denies any new symptoms, improving slowly and needs more time No SEs from medications, risks discussed. After care discussed, she does admit to feeling slightly anxious about her upcoming discharge and what her plan is after leaving. Patient expresses her interest in the option of methadone management after discharge Medication Change: Yes (detox changes daily) Medical Record Reviewed: Yes Mental Status Examination - Cognitive Function Orientation: Person, Place, Situation, Time Memory: Intact Attention: WNL Concentration: WNL Association: WNL Fund of Knowledge: WNL - Mood Mood: Neutral - Affect Affect: Broad - Speech Speech: Appropriate - Language Language: Word Retrieval - Formal Thought Process Formal Thought Process: No Impairment - Suicidal Ideation Suicidal Ideation: No - Homicidal Ideation Homicidal Ideation: No Goal/Treatment Plan - Goal/Treatment Plan Need for Continued Stay: Remain at risks for inpatient hospitalization, Discharge may exacerbated symptoms Progress Toward Problem(s) and Goals/Treatment Plan: Continue medications Support and psychoeducation daily Attend groups and activities daily After care planning by KATJA Estimated Date of D/C: 06/20/17 - Smoking Cessation Smoking Cessation Initiated: Yes
--- NOTE | 2017-06-20 15:08 | PCM.PYCHPN ---
Psychiatric Progress Note - Psychiatric Progress Note Patient seen today, length of contact: 18 min Patient Chief Complaint: "I feel okay" Problems Identified/Issues Discussed: The pt is seen, chart reviewed, case discussed with staff. Support given, CBT and [place] used briefly Patient states that she feels okay overall and is sleeping well. She is otherwise without complaints. Denies any new symptoms, improving slowly and needs more time No SEs from medications, risks discussed. After care discussed. Medication Change: Yes (detox changes daily) Medical Record Reviewed: Yes Mental Status Examination - Cognitive Function Orientation: Person, Place, Situation, Time Memory: Intact Attention: WNL Concentration: WNL Association: [facility] Fund of Knowledge: WN - Mood Mood: Neutral - Affect Affect: Broad - Speech Speech: Appropriate - Language Language: Word Retrieval - Formal Thought Process Formal Thought Process: No Impairment - Suicidal Ideation Suicidal Ideation: No - Homicidal Ideation Homicidal Ideation: No Goal/Treatment Plan - Goal/Treatment Plan Need for Continued Stay: Remain at risks for inpatient hospitalization, Discharge may exacerbated symptoms, Severe functional impairment Progress Toward Problem(s) and Goals/Treatment Plan: Continue medications Support and psychoeducation daily Attend groups and activities daily After care planning by KATJA Estimated Date of D/C: 06/21/17 - Smoking Cessation Smoking Cessation Initiated: Yes
[2017-06-21 06:17] VITALS: RESP 18
--- NOTE | 2017-06-21 08:40 | PCM.PYCHDC ---
Mental Status Examination - Mental Status Examination Orientation: Person, Place, Situation, Time Memory: Intact Mood: Neutral Affect: Broad Speech: Appropriate Attention: WNL Concentration: WNL Association: WNL Fund of Knowledge: WNL Formal Thought Process: No Impairment Suicidal Ideation: No Current Homicidal Ideation?: No Discharge Summary - Discharge Note Reason for Hospitalization: Opioid use d/o Consultations:: List each consultation separately and include: 1. Reason for request. 2. Findings. 3. Follow-up Summary of Hospital Course include:: 1. Description of specific treatment plan utilized for patients during their course of treatmen. 2. Summarize the time- course for resolution of acute symptoms and/or regressed behaviors. 3. Describe issues identified and worked on during hospitalization. 4. Describe medication utilized. 5. Describe medical problems identified and treated. 6. Reassessment of suicide risk Summary of Hospital Course: 37y y.o female single with an 11 year old son, who is employed as a dog beautician , and living in a home presented to the ED yesterday requesting detox from heroin. She has been using heroin for the last 17 years about 60-90 bags daily via injection. She also uses cocaine about a dime daily via injection. She denies any other drug use and alcohol use. She smokes about a pack daily and requested a patch. She has been to detox about 3-4 times and the most recent detox was in January 2017 when she entered [facility] following detox and was kicked out after 2 months due to cursing. She relapsed 3 weeks ago. Her longest sobriety was 3-4 years while in halfway. She last used at 1 pm yesterday (06/16). She spoke about her fiance who committed suicide about 9 years ago. She complains of severe weight loss and requested additional weight supplements. She plans to go back to [facility] following detox. Detox Hx: 3-4 years Rehab Hx: 1 time at a very young age Medical Hx: NA Medications: NA Psych Hx: Borderline personality d/o, PTSD, Depression, Anxiety Fam Hx: Father had substance abuse d/o but has been clean for 20 years now Hospital course: Patient completed 4 days of detox. No remarkable events were noted. Discharge planse were arranges at [facility], which accepted the patient but [place] [facility] [place] She stated this morning that: "I need to go home first to get my clothes, make-up..." She claims her friend, whom she lives with works and may not bring them. Risks of not going directly and how hard to get this appointment discussed with her, and that it would be better if arrangements were made to go straight there. Patient expressed her understand but has chosen to go home first. - Diagnosis (1) Opioid use disorder, severe, dependence Status: Acute - Final Diagnosis (DSM 5) Condition upon Discharge: STABLE Disposition: HOME/ ROUTINE Follow-up Treatment Plan: Continue medications Support and psychoeducation daily Attend groups and activities daily After care planning by KATJA Prescriptions/Medication Reconciliation: Gabapentin [Neurontin] 300 mg PO TID #90 cap hydrOXYzine HCl [Atarax] 50 mg PO BID PRN #60 tab PRN Reason: Anxiety traZODone [Desyrel] 100 mg PO HS #30 tab
[2017-06-21 10:35] VITALS: BP 104/67; PULSE 94; TEMP 97.7; O2SAT 100
== END 2017-06-21 10:39 | disposition home or self-care (01) | DRG 745 ==
LOC: C.ER 00:16 → C.7D 03:57
PROC: HZ2ZZZZ Detoxification Services for Substance Abuse Treatment (ICD-10-PCS; principal; 2017-06-17)
PROC: GZ56ZZZ Individual Psychotherapy, Supportive (ICD-10-PCS; 2017-06-17)
DX: F11.23 Opioid dependence with withdrawal (principal); F14.90 Cocaine use, unspecified, uncomplicated; F17.210 Nicotine dependence, cigarettes, uncomplicated; F32.9 Major depressive disorder, single episode, unspecified; F43.10 Post-traumatic stress disorder, unspecified; F60.3 Borderline personality disorder

== ENCOUNTER → 2017-12-01 20:24 | Emergency (ER) | payer MEDICAID, OTHER | END | disposition left against medical advice (07) | LOC: C.ER 20:24 | DX: Z02.89 Encounter for other administrative examinations (principal); Z00.00 Encounter for general adult medical examination without abnormal findings ==

== ENCOUNTER 2018-02-08 22:47 | Inpatient (IN) | payer OTHER ==
[2018-02-08 23:33] LABS: BASO # 0.1 K/uL (0.0-0.2); BASO % 1.2 % (0.0-2.0); EOS # 0.1 K/uL (0.0-0.7); HEMOGLOBIN 12.2 g/dL (11.0-16.0); LYMPH # 1.8 K/uL (1.0-4.3); MEAN CELL VOLUME 81.7 fL (81.0-99.0); MEAN CORPUSCULAR HEMOGLOBIN 27.8 pg (27.0-31.0); MEAN CORPUSCULAR HGB CONC 34.1 g/dL (33.0-37.0); MEAN PLATELET VOLUME 7.7 fL (7.2-11.7); MONO # 0.4 K/uL (0.0-0.8); MONO % 6.8 % (0.0-10.0); NEUT # 3.6 K/uL (1.8-7.0); RBC 4.38 Mil/uL (3.80-5.20); RED CELL DISTRIBUTION WIDTH 15.8 % (11.5-14.5); WHITE BLOOD COUNT 5.9 K/uL (4.8-10.8)
[2018-02-08 23:44] LABS: HCG,QUALITATIVE URINE NEGATIVE (NEGATIVE); SQUAMOUS EPITHIAL 2 /hpf (0-5); URINE BACTERIA MOD (<OCC); URINE BILIRUBIN NEGATIVE (NEGATIVE); URINE BLOOD 1+ (NEGATIVE); URINE CALCIUM OXALATE CRYSTALS RARE /hpf (<OCC); URINE CLARITY Hazy (Clear); URINE COLOR YELLOW (YELLOW); URINE GLUCOSE (UA) NORMAL (Normal); URINE LEUKOCYTE ESTERASE TRACE Leu/uL (Negative); URINE PROTEIN 1+ mg/dL (NEGATIVE); URINE UROBILINOGEN NORMAL mg/dL (0.2-1.0)
[2018-02-08 23:46] LABS: ALB/GLOB RATIO 1.2 (1.0-2.1); ALBUMIN 4.8 g/dL (3.5-5.0); BLOOD UREA NITROGEN 11 mg/dL (7-17); CALCIUM 9.8 mg/dl (8.6-10.4); GFR NON-AFRICAN AMERICAN > 60
[2018-02-08 23:52] LABS: BARBITURATES, UR NEGATIVE (NEGATIVE); BENZODIAZEPINES, UR NEGATIVE (NEGATIVE); PHENCYCLIDINE, UR NEGATIVE (NEGATIVE)
[2018-02-08 23:53] LABS: OPIATES, UR POSITIVE (NEGATIVE)
[2018-02-08 23:53] LABS: ALT/SGPT 19 U/L (9-52); AST/SGOT 35 U/L (14-36)
--- NOTE | 2018-02-09 00:42 | C.PDOC ---
History Of Present Illness 38 year old female presents to the emergency department requesting detox from heroin and cocaine, which she last used this afternoon. Time Seen by Provider: 02/08/18 23:11 Chief Complaint (Nursing): Substance Abuse History Per: Patient History/Exam Limitations: no limitations Onset/Duration Of Symptoms: Hrs Current Symptoms Are (Timing): Still Present Suicide/Self Injury Attempted (Context): None Modifying Factor(s): Cocaine, Other (heroin) Associated Symptoms: denies: Suicidal Thoughts, Suicidal Plan Past Medical History Reviewed: Historical Data, Nursing Documentation, Vital Signs Vital Signs: Last Vital Signs Temp 98.3 F 02/08/18 22:59 Pulse 100 H 02/08/18 22:59 Resp 20 02/08/18 22:59 BP 118/74 02/08/18 22:59 Pulse Ox 98 02/08/18 22:59 - Medical History PMH: Fractures, Hepatitis (Hep C from using someone elses needle.), Seizures Denies: Diabetes, HIV, HTN, Chronic Kidney Disease, Sexually Transmitted Disease Surgical History: No Surg Hx - [facility] Procedures DETOXIFICATION SERVICES FOR SUBSTANCE ABUSE TREATMENT (06/17/17) INDIV PSYCHOTHERAPY FOR SUBSTANCE ABUSE TREATMENT, SUPPORT (09/12/16) INDIV PSYCHOTHERAPY FOR SUBSTANCE ABUSE, COGNITIV BEHAVIORAL (09/12/16) INDIV PSYCHOTHERAPY FOR SUBSTANCE ABUSE, PSYCHOEDUCATION (09/12/16) INDIVIDUAL PSYCHOTHERAPY, SUPPORTIVE (06/17/17) Family History: States: No Known Family Hx - Social History Hx Alcohol Use: No Hx Substance Use: Yes - Immunization History Hx Tetanus Toxoid Vaccination: No Hx Influenza Vaccination: No Hx Pneumococcal Vaccination: No Review Of Systems Except As Marked, All Systems Reviewed And Found Negative. Gastrointestinal: Negative for: Nausea, Vomiting Psych: Negative for: Suicidal ideation Physical Exam - Physical Exam Appears: Non-toxic, No Acute Distress Skin: Warm, Dry Head: Atraumatic, Normacephalic Eye(s): bilateral: Normal Inspection, PERRL, EOMI Oral Mucosa: Moist Neck: Normal, Supple Chest: Symmetrical, No Tenderness Cardiovascular: Rhythm Regular, No Murmur Respiratory: No Rales, No Rhonchi, No Wheezing Gastrointestinal/Abdominal: Soft, No Tenderness, No Guarding, No Rebound Extremity: Normal ROM (all extremities) Neurological/Psych: Oriented x3, Normal Speech, Normal Cognition ED Course And Treatment - Laboratory Results Result Diagrams: 10/20/18 23:29 02/08/18 23:29 O2 Sat by Pulse Oximetry: 98 (RA) Pulse Ox Interpretation: Normal Progress Note: Plan: Alcohol Serum. CMP. Drug Screen. CBC. Macrobid 100mg PO. Urine Culture. HCG Qualitative Urine. Urinalysis. Patient is medically cleared for detox, but is found to have a UTI. Patient needs to continue Macrobid 100mg PO every 12 hours for the next five days. Disposition - Disposition Disposition: HOSPITALIZED Disposition Time: 00:41 Condition: STABLE - Clinical Impression Clinical Impression: Opioid use disorder, severe, dependence, Depression, UTI (urinary tract infection) - PA / BLOOD TESTER / Resident Statement MD/DO has reviewed & agrees with the documentation as recorded. - Scribe Statement The provider has reviewed the documentation as recorded by the Scribe (Kana Garcia) All medical record entries made by the Scribe were at my direction and per sonally dictated by me. I have reviewed the chart and agree that the record accurately reflects my personal performance of the history, physical exam, medical decision making, and the department course for this patient. I have also personally directed, reviewed, and agree with the discharge instructions and disposition. Decision To Admit - Pt Status Changed To: Hospital Disposition Of: Inpatient - Admit Certification Admit to Inpatient:: After my assessment, the patient will require hospitalization for at least two midnights. This is because of the severity of symptoms shown, intensity of services needed, and/or the medical risk in this patient being treated as an outpatient. - InPatient: Physician Admission Certification: I certify that this patient requires 2 or more midnights of care for the following reason:: Will need more than 2 days of hospitalization - . Bed Request Type: Detox Admitting Physician: Tian Garnica Patient Diagnosis: Opioid use disorder, severe, dependence, Depression, UTI (urinary tract infection)
[2018-02-09] MEDS ORDERED: Aluminum Hydroxide/Magnesium Hydroxide Susp (30 mL) PO PRN (12:50)
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
--- NOTE | 2018-02-10 03:07 | PCM.BM ---
<NitoMiroslavaEva D - Last Filed: 02/10/18 03:07> Treatment Plan Problems - Problems identified on initial assessmt Opiate Dependence Date Initiated: 02/09/18 Time Initiated: 06:00 Assessment reference: NA Status: Active Treatment assets and liabiliti Patient Assests: ADL independent Patient Liabilities: substance abuse - Milieu Protocol Maintain good personal hygiene: daily Encourage regular showers, daily Remind patient to perform daily oral care, daily Assist patient to perform ADL's Maintain personal safety: every shift Educate patient to report safety concerns to staff, every shift Monitor environment for contraband/sharps Medication safety: Monitor for expected outcome, potential side effects: every shift, Assess barriers to learning: every shift, Assess readiness for medication education: every shift Milieu Narrative: Patient/staff education. Supportive therapy. CBT for relapse prevention. [place] for abstinence. We'll start methadone taper for opiate withdrawal symptoms. Other when necessary medications. Patient wants to go to [facility] for follow-up care after discharge from the hospital. Discharge/Continuing Care - Treatment Team Participation Patient/Family/SO Statement: Patient/staff education. Supportive therapy. CBT for relapse prevention. MD for abstinence. We'll start methadone taper for opiate withdrawal symptoms. Other when necessary medications. Patient wants to go to [facility] for follow-up care after discharge from the hospital. <Mk Larson - Last Filed: 02/10/18 08:45> - Diagnosis (1) Opioid use disorder, severe, dependence Status: Acute Interventions: 02/10/18 08:45 * Assess 7x/week regarding severity of withdrawal * Educate regarding risks, benefits, side effects and alternatives of medications * Use Motivational Interviewing for abstinence * Use CBT for relapse prevention * Medication management for withdrawal symptoms * Encourage medication assisted treatment * <Rosaline Carlson - Last Filed: 02/11/18 14:12> Family Contact Family involvement: Famliy/SO not involved - Goals for Treatment Patient goals for treatment: Complete detox protocol and apply to short-term rehab. Discharge/Continuing Care - Education Needs Education Needs: Patient Medication, Patient Diagnosis/Disease Process, Patient Coping Skills (spouse is enabler.), Patient Anger Management skills, Patient Placement options, Patient Community resources, Significant Other Diagnosis/Disease Process, Significant Other Coping Skills - Discharge Discharge Criteria: No longer exhibiting s/s of withdrawal, Reduction of target symptoms Discharge to:: Substance Abuse Rehab - Treatment Team Participation Patient/Family/SO Statement: 02/11/18 14:12 "I wanna go to short term rehab--maybe [facility]...then, I wanna get the Vivitrol shot." Discussed with Family/SO: No Was Patient/Family/SO present at Treatment Team Meeting: Yes
--- NOTE | 2018-02-10 08:45 | PCM.PYCHPN ---
Psychiatric Progress Note - Psychiatric Progress Note Patient seen today, length of contact: 17 min Patient Chief Complaint: "I'm back" Problems Identified/Issues Discussed: The pt is seen, chart reviewed, case discussed with staff. The pt is compliant with medications and reports no side-effects. Symptoms are improving but needs more time to stabilize. Pt attends groups and activities. Support given, psycho-education provided. After care discussed. - she wants to try rehab but c/o getting "kicked out" Medication Change: Yes (detox changes daily) Medical Record Reviewed: Yes Mental Status Examination - Cognitive Function Orientation: Person, Place, Situation, Time Memory: Intact Attention: WNL Concentration: Poor Association: WNL Fund of Knowledge: WNL - Mood Mood: Anxious - Affect Affect: Constricted, Other - Speech Speech: Appropriate - Formal Thought Process Formal Thought Process: No Impairment - Suicidal Ideation Suicidal Ideation: No - Homicidal Ideation Homicidal Ideation: No Goal/Treatment Plan - Goal/Treatment Plan Need for Continued Stay: Discharge may exacerbated symptoms, Severe functional impairment Progress Toward Problem(s) and Goals/Treatment Plan: Continue medications Support and psychoeducation daily Attend groups and activities daily After care planning by counselors [place] and CBT for abstinence Refer to rehab, followed by MAT
--- NOTE | 2018-02-11 13:44 | PCM.PYCHPN ---
Psychiatric Progress Note - Psychiatric Progress Note Patient seen today, length of contact: 17 min Patient Chief Complaint: "I'm still withdrawing" Problems Identified/Issues Discussed: The pt is seen, chart reviewed, case discussed with staff. Support and psychoeducation given, CBT and ME used briefly No new symptoms reported, improving slowly and needs more time No SEs from medications, risks discussed. After care discussed Extra dose given Medication Change: Yes (detox changes daily) Medical Record Reviewed: Yes Mental Status Examination - Cognitive Function Orientation: Person, Place, Situation, Time Memory: Intact Attention: WNL Concentration: Poor Association: WNL Fund of Knowledge: WNL - Mood Mood: Anxious - Affect Affect: Constricted, Other - Speech Speech: Appropriate - Formal Thought Process Formal Thought Process: No Impairment - Suicidal Ideation Suicidal Ideation: No - Homicidal Ideation Homicidal Ideation: No Goal/Treatment Plan - Goal/Treatment Plan Need for Continued Stay: Discharge may exacerbated symptoms, Severe functional impairment Progress Toward Problem(s) and Goals/Treatment Plan: Continue medications Support and psychoeducation daily Attend groups and activities daily After care planning by counselors [place] and CBT for abstinence Refer to rehab, followed by MAT Estimated Date of D/C: 02/13/18
--- NOTE | 2018-02-12 12:02 | PCM.PYCHPN ---
Psychiatric Progress Note - Psychiatric Progress Note Patient seen today, length of contact: 15 min Patient Chief Complaint: "I didn't like Risperdal" Problems Identified/Issues Discussed: The pt is seen, chart reviewed, case discussed with staff. The pt is compliant with medications and reports no side-effects. Symptoms are improving but needs more time to stabilize. Pt attends groups and activities. Support given, psycho-education provided. After care discussed. She is undecided on rehabs and makes excuses, ie no- smoking is not OK with her Risperdal is switched to low dose depakote ER, which she will follow outpt re levels Medication Change: Yes (detox changes daily) Medical Record Reviewed: Yes Mental Status Examination - Cognitive Function Orientation: Person, Place, Situation, Time Memory: Intact Attention: WNL Concentration: Poor Association: WNL Fund of Knowledge: WNL - Mood Mood: Anxious - Affect Affect: Constricted, Other - Speech Speech: Appropriate - Formal Thought Process Formal Thought Process: No Impairment - Suicidal Ideation Suicidal Ideation: No - Homicidal Ideation Homicidal Ideation: No Goal/Treatment Plan - Goal/Treatment Plan Need for Continued Stay: Discharge may exacerbated symptoms, Severe functional impairment Progress Toward Problem(s) and Goals/Treatment Plan: Continue medications Support and psychoeducation daily Attend groups and activities daily After care planning by counselors [place] and CBT for abstinence Refer to rehab, followed by DRE Kenny for mood stabilization Estimated Date of D/C: 02/13/18
[2018-02-12 13:08] VITALS: RESP 18
--- NOTE | 2018-02-12 13:28 | RAD ---
Date of service: 02/12/2018 HISTORY: Substance abuse, rehab clearance COMPARISON: 09/15/2017. TECHNIQUE: Chest PA and lateral FINDINGS: LUNGS: No active pulmonary disease. PLEURA: No significant pleural effusion identified. No pneumothorax apparent. CARDIOVASCULAR: No aortic atherosclerotic calcification present OSSEOUS STRUCTURES: No significant abnormalities. VISUALIZED UPPER ABDOMEN: Normal. OTHER FINDINGS: None. IMPRESSION: No active disease. No significant interval change compared to the prior examination(s).
[2018-02-12] MEDS: Divalproex 500 mg ER Tab PO SCH (17:03)
[2018-02-13 08:34] VITALS: BP 107/65; PULSE 79; TEMP 97.6; O2SAT 100
--- NOTE | 2018-02-13 08:41 | PCM.PYCHDC ---
Mental Status Examination - Mental Status Examination Orientation: Person, Place, Situation, Time Memory: Intact Mood: Anxious Affect: Constricted Speech: Appropriate Attention: WNL Concentration: WNL Association: WNL Fund of Knowledge: WNL Formal Thought Process: No Impairment Suicidal Ideation: No Current Homicidal Ideation?: No Discharge Summary - Discharge Note Reason for Hospitalization: Opioid detox Psychiatric History (includes Medical, Family, Personal Hx): Detox and rehabilitation Consultations:: List each consultation separately and include: 1. Reason for request. 2. Findings. 3. Follow-up Summary of Hospital Course include:: 1. Description of specific treatment plan utilized for patients during their course of treatmen. 2. Summarize the time- course for resolution of acute symptoms and/or regressed behaviors. 3. Describe issues identified and worked on during hospitalization. 4. Describe medication utilized. 5. Describe medical problems identified and treated. 6. Reassessment of suicide risk Summary of Hospital Course: The pt was admitted and started on treatment with psychotherapy, support, psychoeducation and medications. NH and CBT used. The pt attended groups and activities, as well as milieu therapy. All the risks and benefits of medications are discussed and the patient understood and agreed. The pt improved with the treatments provided. After care discussed with the patient. She went to [facility]. - Final Diagnosis (DSM 5) Condition upon Discharge: STABLE DSM 5: Opiod use disorder severe Opioid withdrawal Cocaine use disorder severe Cocaine withdrawal Disposition: REHAB FACILITY/REHAB UNIT Follow-up Treatment Plan: Continue below medications after discharge. Follow after care plan as discussed. Use relapse prevention skills Return to ER or call 911 if suicidal, homicidal or symptoms relapse. Stay away from stress, alcohol and drugs. See primary doctor regularly and get labs. Prescriptions/Medication Reconciliation: Divalproex [Depakote ER] 500 mg PO BID #60 ter Gabapentin [Neurontin] 300 mg PO TID #90 cap hydrOXYzine HCl [Atarax] 50 mg PO DAILY PRN #30 tab PRN Reason: Anxiety Nitrofurantoin Macrocrystals [Macrobid] 100 mg PO Q12 #12 cap traZODone [Desyrel] 100 mg PO HS PRN #30 tab PRN Reason: Insomnia - Smoking Cessation Smoking Cessation Medication prescribed: No - Antipsychotic Medications Pt discharged on 2 or more routine antipsychotic medications: No
[2018-02-13] MEDS: Divalproex 500 mg ER Tab PO SCH (09:41)
== END 2018-02-13 11:00 | disposition home or self-care (01) | DRG 773 ==
LOC: C.ER 22:47 → C.7D 02-09 00:42
PROC: GZHZZZZ Group Psychotherapy (ICD-10-PCS; principal; 2018-02-09)
PROC: GZ56ZZZ Individual Psychotherapy, Supportive (ICD-10-PCS; 2018-02-09)
DX: F11.23 Opioid dependence with withdrawal (principal); N39.0 Urinary tract infection, site not specified; F14.23 Cocaine dependence with withdrawal; F17.210 Nicotine dependence, cigarettes, uncomplicated; F32.9 Major depressive disorder, single episode, unspecified; Z88.8 Allergy status to other drugs, medicaments and biological substances

== ENCOUNTER 2018-05-03 01:05 | Inpatient (IN) | payer OTHER ==
--- NOTE | 2018-05-03 01:19 | C.PDOC ---
History Of Present Illness 38 year old female presents to the ER requesting detox from heroin and cocaine, last use was a few hours ago. Denies suicidal ideation or homicidal ideation. Time Seen by Provider: 05/03/18 01:19 Chief Complaint (Nursing): Substance Abuse History Per: Patient History/Exam Limitations: no limitations Onset/Duration Of Symptoms: Hrs Current Symptoms Are (Timing): Still Present Suicide/Self Injury Attempted (Context): None Modifying Factor(s): Cocaine, Other (Heroin) Severity: None Pain Scale Rating Of: 0 Associated Symptoms: denies: Suicidal Thoughts, Other (Homicidal ideation) Involuntary Hold By: None Recent travel outside of the [place]: No Additional History Per: Patient Past Medical History Reviewed: Historical Data, Nursing Documentation, Vital Signs Vital Signs: Last Vital Signs Temp 104 F H 05/03/18 01:14 Pulse 104 H 05/03/18 01:14 Resp 16 05/03/18 01:14 BP 145/82 05/03/18 01:14 Pulse Ox 96 05/03/18 01:14 - Medical History PMH: Fractures, Hepatitis (Hep C from using someone elses needle.), Seizures Denies: Diabetes, HIV, HTN, Chronic Kidney Disease, Sexually Transmitted Disease - [facility] DETOXIFICATION SERVICES FOR SUBSTANCE ABUSE TREATMENT (06/17/17) GROUP PSYCHOTHERAPY (02/09/18) INDIV PSYCHOTHERAPY FOR SUBSTANCE ABUSE TREATMENT, SUPPORT (09/12/16) INDIV PSYCHOTHERAPY FOR SUBSTANCE ABUSE, COGNITIV BEHAVIORAL (09/12/16) INDIV PSYCHOTHERAPY FOR SUBSTANCE ABUSE, PSYCHOEDUCATION (09/12/16) INDIVIDUAL PSYCHOTHERAPY, SUPPORTIVE (02/09/18) Family History: States: Unknown Family Hx - Social History Hx Alcohol Use: No Hx Substance Use: Yes - Immunization History Hx Tetanus Toxoid Vaccination: No Hx Influenza Vaccination: No Hx Pneumococcal Vaccination: No Review Of Systems Constitutional: Negative for: Fever, Chills Cardiovascular: Negative for: Chest Pain, Palpitations Respiratory: Negative for: Cough, Shortness of Breath Gastrointestinal: Negative for: Nausea, Vomiting Genitourinary: Negative for: Dysuria Musculoskeletal: Negative for: Back Pain Skin: Negative for: Rash Neurological: Negative for: Weakness, Numbness Psych: Positive for: Anxiety. Negative for: Suicidal ideation, Other (Homicidal ideation) Physical Exam - Physical Exam Appears: Non-toxic Skin: Warm, Dry Head: Normacephalic Oral Mucosa: Moist Neck: Supple Chest: Symmetrical, No Tenderness Cardiovascular: Rhythm Regular Respiratory: No Rales, No Rhonchi, No Wheezing Gastrointestinal/Abdominal: Soft, No Tenderness Back: Normal Inspection Extremity: Normal ROM Extremity: Bilateral: Atraumatic Neurological/Psych: Oriented x3 Gait: Steady ED Course And Treatment - Laboratory Results Result Diagrams: 05/03/18 01:58 05/03/18 01:58 O2 Sat by Pulse Oximetry: 96 (Room air) Pulse Ox Interpretation: Normal Progress Note: Blood work and urinalysis ordered. Crisis notified. Disposition Discussed With : Mk Larson Comment: accepted the pt on his service and took over the care at3:56 AM Doctor Will See Patient In The: Hospital Counseled Patient/Family Regarding: Studies Performed, Diagnosis - Disposition Disposition: HOSPITALIZED Disposition Time: Condition: FAIR Forms: [facility] (Turkmen) - POA Present On Arrival: Poor Glycemic Control - Clinical Impression Clinical Impression: Heroin abuse, Cocaine abuse - Scribe Statement The provider has reviewed the documentation as recorded by the Scribe Daquan Reddy All medical record entries made by the Scribe were at my direction and personally dictated by me. I have reviewed the chart and agree that the record accurately reflects my personal performance of the history, physical exam, medical decision making, and the department course for this patient. I have also personally directed, reviewed, and agree with the discharge instructions and disposition. Decision To Admit - Pt Status Changed To: Hospital Disposition Of: Inpatient - Admit Certification Admit to Inpatient:: After my assessment, the patient will require hospitalization for at least two midnights. This is because of the severity of symptoms shown, intensity of services needed, and/or the medical risk in this patient being treated as an outpatient. - InPatient: Physician Admission Certification: I certify that this patient requires 2 or more midnights of care for the following reason:: After my assessment, the patient will require hospitalization for at least two midnights. This is because of the severity of symptoms shown, intensity of services needed, and/or the medical risk in this patient being treated as an outpatient. - . Bed Request Type: Detox Admitting Physician: Mk Larson Patient Diagnosis: Heroin abuse, Cocaine abuse
[2018-05-03 02:01] LABS: BASO # 0.1 K/uL (0.0-0.2); BASO % 0.8 % (0.0-2.0); EOS # 0.1 K/uL (0.0-0.7); EOS % 0.7 % (0.0-4.0); HEMOGLOBIN 12.7 g/dL (11.0-16.0); LYMPH # 1.5 K/uL (1.0-4.3); LYMPH % 16.6 % (20.0-40.0); MEAN CELL VOLUME 82.3 fL (81.0-99.0); MONO # 0.5 K/uL (0.0-0.8); MONO % 6.1 % (0.0-10.0); NEUT # 6.7 K/uL (1.8-7.0); NEUT % 75.8 % (50.0-75.0); RBC 4.53 Mil/uL (3.80-5.20); WHITE BLOOD COUNT 8.9 K/uL (4.8-10.8)
[2018-05-03 02:26] LABS: ALB/GLOB RATIO 1.1 (1.0-2.1); ALBUMIN 4.5 g/dL (3.5-5.0); ALT/SGPT 11 U/L (9-52); AST/SGOT 32 U/L (14-36); BLOOD UREA NITROGEN 17 mg/dL (7-17); CALCIUM 9.3 mg/dl (8.6-10.4); GFR NON-AFRICAN AMERICAN > 60
[2018-05-03 02:27] LABS: HCG,QUALITATIVE URINE NEGATIVE (NEGATIVE)
[2018-05-03 02:28] LABS: SQUAMOUS EPITHIAL 3 /hpf (0-5); URINE BACTERIA RARE (<OCC); URINE BILIRUBIN NEGATIVE (NEGATIVE); URINE BLOOD 1+ (NEGATIVE); URINE CLARITY Hazy (Clear); URINE COLOR Yellow (YELLOW); URINE GLUCOSE (UA) NORMAL (Normal); URINE HYALINE CAST 0-2 /lpf (0-2); URINE LEUKOCYTE ESTERASE TRACE Leu/uL (Negative); URINE PROTEIN 1+ mg/dL (NEGATIVE); URINE UROBILINOGEN NORMAL mg/dL (0.2-1.0)
[2018-05-03 02:38] LABS: BARBITURATES, UR NEGATIVE (NEGATIVE); BENZODIAZEPINES, UR NEGATIVE (NEGATIVE); PHENCYCLIDINE, UR NEGATIVE (NEGATIVE)
[2018-05-03 03:27] LABS: OPIATES, UR POSITIVE (NEGATIVE)
--- NOTE | 2018-05-03 08:07 | PCM.BM ---
<Antonia Billy - Last Filed: 05/03/18 08:04> Treatment Plan Problems - Problems identified on initial assessmt Defensive Coping Date Initiated: 05/03/18 Assessment reference: NA Status: Active Social Isolation Date Initiated: 05/03/18 Assessment reference: NA Status: Active Abnormal vital sign Date Initiated: 05/03/18 Assessment reference: NA Status: Active Treatment assets and liabiliti Patient Assests: cooperative, motivated, ADL independent, negotiates basic needs Patient Liabilities: financial problems, poor support system, substance abuse - Milieu Protocol Maintain good personal hygiene: daily Encourage regular showers, daily Remind patient to perform daily oral care, daily Assist patient to perform ADL's Conduct patient checks and document Observation sheet: Q15 minutes Maintain personal safety: every shift Educate patient to report safety concerns to staff, every shift Monitor environment for contraband/sharps Medication safety: Monitor for expected outcome, potential side effects: every shift, Assess barriers to learning: every shift, Assess readiness for medication education: every shift <Mk Larson - Last Filed: 05/05/18 14:12> - Diagnosis (1) Opioid use disorder, severe, dependence Status: Acute Interventions: 05/04/18 14:11 * Assess 7x/week regarding severity of withdrawal * Educate regarding risks, benefits, side effects and alternatives of medications * Use Motivational Interviewing for abstinence * Use CBT for relapse prevention * Medication management for withdrawal symptoms * Encourage medication assisted treatment *
[2018-05-03] MEDS ORDERED: Aluminum Hydroxide/Magnesium Hydroxide Susp (30 mL) PO PRN (09:06)
--- NOTE | 2018-05-03 09:06 | PCM.PSYCH ---
Initial Psychiatric Evaluation - Initial Psychiatric Evaluation Type of Admission: Voluntary Legal Status: Capacity Chief Complaint (in patient's own words): "Need detox" History of Present Illness and Precipitating Events: Patient is a 38 years old, single, employed, female with history of depression, heroin and cocaine use. She is well-known from many admissions. Opioids: Patient started using heroin at 22 years of age, increased gradually to "200 bags" of heroin daily, IV. Her last use of heroin was yesterday. Longest period of abstinence was 4 years from [id number]. Patient relapsed on heroin in 2010 after her fiance committed suicide by hanging. Patient has history of 7 detox and 7 rehabs in the past. She says she left us and went to [facility] for about a month but relapsed quickly after completion. Cocaine: Patient started using cocaine at 10 years of age, was using 1 g of cocaine daily. Last used yesterday. Patient smokes one pack of cigarettes daily and is requesting for nicotine patch. Patient has history of one , and Hep C Psych: Dx'ed with bipolar d/o and also depression. Non-comp with meds Patient was born in [place] and has GED. She was working as receiving associate. Never , has one 12 years old son who lives with patient's mother. Patient lives with a friend who is an enabler she claims bc he gives her lots of money. Past Psychiatric History - Past Psychiatric History Previous Treatment History: Inpatient Pertinent Medical Hx (Current Medical&Sleep Prob, Allergies): Allergies Allergy/AdvReac Type Severity Reaction Status Date / Time haloperidol [From Haldol] Allergy Verified 02/08/18 23:04 haloperidol lactate Allergy Verified 02/08/18 23:04 [From Haldol] Divalproex [Depakote ER] 500 mg PO BID #60 ter 02/12/18 Gabapentin [Neurontin] 300 mg PO TID #90 cap 02/12/18 Nitrofurantoin Macrocrystals [Macrobid] 100 mg PO Q12 #12 cap 02/12/18 hydrOXYzine HCl [Atarax] 50 mg PO DAILY PRN #30 tab 02/12/18 traZODone [Desyrel] 100 mg PO HS PRN #30 tab 02/12/18 Review of Systems - Neurological Neurological: Dizziness - Psychiatric Psychiatric: Abnormal Sleep Pattern, Anhedonia, Anxiety, Depression, Difficulty Concentrating. absent: Hallucinations, Homicidal Ideation, Paranoia, Suicidal Ideation Mental Status Examination - Personal Presentation Personal Presentation: Looks stated age - Affect Affect: Constricted - Motor Activity Motor Activity: Calm - Reliability in Providing Information Reliability in Providing Information: Fair - Speech Speech: Organized - Mood Mood: Depressed, Anxious - Formal Thought Process Formal Thought Process: No Impairment - Cognitive Functions Orientation: Person, Place, Situation, Time Sensorium: Drowsy Attention/Concentration: Easily distracted Estimate of Intelligence: Average Judgement: Intact, as evidence by: Insight regarding need for hospitalization Memory: Recent intact, as evidence by: Ability to recall events of the day, Remote intact, as evidenced by: Abilit to recall sig. life events - Risk Risk: Withdrawal, Diminished functioning - Strength & Assets Inventory Strength & Assets Inventory: Cooperative - Limitations Limitations: Other DSM 5 DX - DSM 5 DSM 5 Diagnosis: Opiod use disorder severe Opioid withdrawal Cocaine use disorder severe Tobacco use d/o - severe Depressive d/o - unspecified Bipolar d/o by history Personality d/o - unspecified - Recommended/Plan of Treatment Treatment Recommendations and Plan of Treatment: Taper with methadone Remeron for depression and insomnia Gabapentin for augmentation Depakote for mood swings As needed medications All risks, benefits and alternatives of the meds discussed, and the pt agreed and understood. Attend groups and activities Supportive therapy and psychoeducation GA for abstinence CBT for relapse prevention Encourage MAT Refer to rehab or IOP, and self-help groups Teach healthy lifestyle methods, i.e. diet, exercise, meditation Smoking cessation with GA Nicotine patch if needed 34 min
[2018-05-03] MEDS: Divalproex 500 mg ER Tab PO SCH ×2 (10:13→17:17)
[2018-05-04] MEDS: Divalproex 500 mg ER Tab PO SCH ×2 (09:48→17:17)
--- NOTE | 2018-05-04 23:31 | PCM.PYCHPN ---
Psychiatric Progress Note - Psychiatric Progress Note Medication Change: Yes (detox changes daily) Medical Record Reviewed: Yes Mental Status Examination - Homicidal Ideation Homicidal Ideation: No
[2018-05-05] MEDS: Divalproex 500 mg ER Tab PO SCH ×2 (09:55→17:17)
--- NOTE | 2018-05-05 10:26 | PCM.PYCHPN ---
Psychiatric Progress Note - Psychiatric Progress Note Patient seen today, length of contact: 18 min Patient Chief Complaint: "Not well" Problems Identified/Issues Discussed: The pt is seen, chart reviewed, case discussed with staff. Support and psychoeducation given, CBT and MT used briefly No new symptoms reported, improving slowly and needs more time No SEs from medications, risks discussed. After care discussed - she plans to move to [place] with her BF Extra dose needed bc of ongoing sxs Medication Change: Yes (detox changes daily) Medical Record Reviewed: Yes Mental Status Examination - Cognitive Function Orientation: Person, Place, Situation, Time Memory: Intact Attention: WNL Concentration: Poor Association: WNL Fund of Knowledge: WNL - Mood Mood: Depressed, Anxious - Affect Affect: Constricted - Speech Speech: Appropriate - Formal Thought Process Formal Thought Process: No Impairment - Suicidal Ideation Suicidal Ideation: No - Homicidal Ideation Homicidal Ideation: No Goal/Treatment Plan - Goal/Treatment Plan Need for Continued Stay: Discharge may exacerbated symptoms, Severe functional impairment Progress Toward Problem(s) and Goals/Treatment Plan: Taper with methadone Remeron for depression and insomnia Gabapentin for augmentation Depakote for mood swings As needed medications All risks, benefits and alternatives of the meds discussed, and the pt agreed and understood. Attend groups and activities Supportive therapy and psychoeducation MT for abstinence CBT for relapse prevention Encourage MAT Refer to rehab or IOP, and self-help groups Teach healthy lifestyle methods, i.e. diet, exercise, meditation Smoking cessation with MT Nicotine patch if needed
--- NOTE | 2018-05-05 12:03 | CP.PCM.CON ---
History of Present Illness - History of Present Illness History of Present Illness: Medicine Consult Note for Dr. Louis Massey CC: left hobbs abscess HPI: 38 y/o female with PMHx of opioid, cocaine, and tobacco abuse, depression, bipolar, hep C, is currently on 7th floor detox. Medicine consult is for her left hobbs abscess. Per patient, she has been having boils on b/l LE for a long time and they get exacerbated. She pops them with her own needles and greenish reddish pus comes out. She has scabs all over her b/l LE and she states they used to be boils that she popped. The left hobbs abscess has been present for two days and it is at its worse today. Patient is unable to ambulate normally due to the pain. She limps when she ambulates around the detox unit. Today patient denies chest pain, nausea, vomiting, fever, chills, sweats. She endorses some SOB and some swelling of her left wrist, where she injects drugs. Last time was right before she was admitted two days ago. She also injects by her left clavicle. Of note patient was seen by Dr. Witt on 2017 admission. She had ECHO on 09/13/16 which showed decreased RV function. Also with calcified atrial surface posterior leaflet. She was recommended to go on ASA, lasix 20 mg, lisinopril 5 mg, which she refused to take. Her d/c summary also stated that she was disappointed that her healthcare providers refused to do a cardiac cath on her. PMHx: as stated above. Patient currently not getting hep C treatment. PSHx: . Right shoulder and right knee ortho surgeries, patient does not know details of the surgeries. FHx: father has had "a lot of heart attacks" SocHx: IVDA - opioids since she was in her 20s, 200 bags and 1 gram of cocaine since 10 y/o. Active tobacco use. Meds: depakote 500 mg BID, gabapentin 300 mg TID, atarax PRN, trazodone PRN. Known to be noncompliant with medication prescriptions per past inpatient re cords Allergies: haloperidol - patient gets myalgias upon taking it Past Patient History - Past Medical History & Family History Past Medical History?: Yes - Past Social History Smoking Status: Current Some Days Smoker - CARDIAC Hx Cardiac Disorders: No (Patent denied.) Hx Hypertension: No (Patent denied.) - PULMONARY Hx Tuberculosis: No (Patent denied.) - NEUROLOGICAL HX Cerebrovascular Accident: No (Patent denied.) Hx Seizures: Yes - HEENT Hx HEENT Problems: No - RENAL Hx Chronic Kidney Disease: No - ENDOCRINE/METABOLIC Hx Endocrine Disorders: No - HEMATOLOGICAL/ONCOLOGICAL Hx Cancer: No (Patent denied.) Hx Human Immunodeficiency Virus (HIV): No (Patent denied.) - INTEGUMENTARY Hx Dermatological Problems: No - MUSCULOSKELETAL/RHEUMATOLOGICAL Hx Falls: Yes Hx Fractures: Yes - GASTROINTESTINAL Hx Gastrointestinal Disorders: No - GENITOURINARY/GYNECOLOGICAL Hx Sexually Transmitted Disorders: No (Patent denied.) - PSYCHIATRIC Hx Substance Use: Yes - SURGICAL HISTORY Hx Surgeries: Yes Hx Section: Yes Other/Comment: Left leg I&D, , Right shoulder metal plate was inserted. - ANESTHESIA Hx Anesthesia: Yes Hx Anesthesia Reactions: No Meds Allergies/Adverse Reactions: Allergies Allergy/AdvReac Type Severity Reaction Status Date / Time haloperidol [From Haldol] Allergy Verified 02/08/18 23:04 haloperidol lactate Allergy Verified 02/08/18 23:04 [From Haldol] - Medications Medications: Current Medications Al Hydrox/Mg Hydrox/Simethicone (Maalox 30 Ml) 30 ml PO TID PRN PRN Reason: Indigestion / Heartburn Clonidine HCl (Catapres) 0.1 mg PO Q4 PRN PRN Reason: COWS Score More or Equal to 5 Divalproex Sodium (Depakote Er) 500 mg PO BID [facility] Last Admin: 05/05/18 09:55 Dose: 500 mg Gabapentin (Neurontin) 300 mg PO TID [facility] Last Admin: 05/05/18 09:55 Dose: 300 mg Hydroxyzine HCl (Atarax) 50 mg PO Q6H PRN PRN Reason: Anxiety Last Admin: 05/04/18 12:53 Dose: 50 mg Ibuprofen (Motrin Tab) 600 mg PO Q6H PRN PRN Reason: Pain, moderate (4-7) Last Admin: 05/04/18 19:43 Dose: 600 mg Loperamide HCl (Imodium) 2 mg PO Q8 PRN PRN Reason: Diarrhea Methadone HCl (Methadone) 10 mg PO Q24H [facility]; Taper Stop: 05/08/18 09:59 Last Admin: 05/05/18 09:55 Dose: 10 mg Methadone HCl (Methadone) 5 mg PO QPM [facility] Stop: 05/06/18 18:01 Mirtazapine (Remeron) 15 mg PO HS [facility] Nicotine (Nicoderm Cq) 1 patch TD DAILY [facility] Last Admin: 05/05/18 09:54 Dose: 1 patch Ondansetron HCl (Zofran Tab) 4 mg PO Q8 PRN PRN Reason: Nausea/Vomiting Trazodone HCl (Desyrel) 100 mg PO HS PRN PRN Reason: Insomnia Last Admin: 05/04/18 21:07 Dose: 100 mg Physical Exam - Constitutional Appears: Agitated (agitated when walking and moving her LE) - Head Exam Head Exam: ATRAUMATIC, NORMAL INSPECTION, NORMOCEPHALIC - Eye Exam Eye Exam: EOMI - Neck Exam Neck exam: Negative for: Normal Inspection (residual track spence on left anterior neck 2/2 IVDA) - Respiratory Exam Respiratory Exam: Clear to Auscultation Bilateral, NORMAL BREATHING PATTERN - Cardiovascular Exam Cardiovascular Exam: REGULAR RHYTHM - GI/Abdominal Exam GI & Abdominal Exam: Normal Bowel Sounds, Soft Additional comments: abdominal tattoos - Extremities Exam Extremities exam: Positive for: calf tenderness, normal capillary refill, tenderness (ttp left lateral calf where there is an abscess approx 3.5 cm diameter, and 2 cm diameter abscess on right medial hobbs), pedal pulses present. Negative for: normal inspection - Neurological Exam Neurological exam: Alert, Oriented x3 Additional comments: patient walks uncomfortable on tip toes - Psychiatric Exam Psychiatric exam: Anxious - Skin Skin Exam: Dry, Warm (particularly warm to touch on abscess site) Additional comments: ttp left lateral calf where there is an abscess approx 4 cm diameter, and 2 cm diameter abscess on right medial hobbs. Multiple eschar scabs all around her b/l shins approx 2 cm in diameter. Results - Vital Signs Recent Vital Signs: Last Vital Signs Temp 97.6 F 05/05/18 08:31 Pulse 58 L 05/05/18 08:31 Resp 18 05/05/18 08:31 BP 94/66 L 05/05/18 08:31 Pulse Ox 99 05/05/18 08:31 - Labs Result Diagrams: 05/03/18 01:58 05/03/18 01:58 Assessment & Plan - Assessment and Plan (Free Text) Assessment: 38 y/o female with PMHx of opioid, cocaine, and tobacco abuse, depression, bipolar, hep C, is currently on 7th floor detox. Medicine consult is for her left hobbs abscess. left hobbs abscess -approx 3.5 cm diameter, pain with light touch, erythematous, but patient afebrile. Was treated for her abscess on admission in 2016, on PO clindamycin, finished course during hospital. Patient w/o leukocytosis on admission 05/03. Remains afebrile -obtain new set of labs CBC, CMP today. Trend qAM. -blood cx -MRSA screen -start clindamycin 300 mg TID for 14 days - start today and continue until 05/18 -lactobacillus for 44 days total through 06/18 -CT scan of left leg w/o contrast to determine whether or not abscess. If abscess, obtain surgery consult to see if bedside drainage can be done. -wound I&D if CT scan positive for abscess - consider general surgery outpatient if patient continues to not be septic and labs normal opioid and cocaine abuse, depression, bipolar -per psych management tobacco abuse -continue with nicotine patch daily Hep C -patient not getting treatment, but is agreeable with getting assistance after -Dr. Wright GI: [phone] - patient is to call to schedule appt DVT ppx: not indicated GI ppx: not indicated Diet: regular case d/w Dr. Louis Gomez PGY1
[2018-05-05 17:17] LABS: BASO # 0.1 K/uL (0.0-0.2); EOS # 0.1 K/uL (0.0-0.7); HEMOGLOBIN 12.8 g/dL (11.0-16.0); LYMPH # 2.3 K/uL (1.0-4.3); LYMPH % 33.4 % (20.0-40.0); MEAN CELL VOLUME 82.3 fL (81.0-99.0); MEAN CORPUSCULAR HEMOGLOBIN 27.2 pg (27.0-31.0); MEAN CORPUSCULAR HGB CONC 33.1 g/dL (33.0-37.0); MEAN PLATELET VOLUME 7.8 fL (7.2-11.7); MONO # 0.5 K/uL (0.0-0.8); MONO % 7.6 % (0.0-10.0); NEUT # 3.8 K/uL (1.8-7.0); NRBC % 0.1 % (0.0-2.0); RBC 4.7 Mil/uL (3.80-5.20); RED CELL DISTRIBUTION WIDTH 15.2 % (11.5-14.5); WHITE BLOOD COUNT 6.8 K/uL (4.8-10.8)
[2018-05-05 17:53] LABS: ALB/GLOB RATIO 1.1 (1.0-2.1); ALBUMIN 4.5 g/dL (3.5-5.0); ALT/SGPT 9 U/L (9-52); AST/SGOT 25 U/L (14-36); BLOOD UREA NITROGEN 23 mg/dL (7-17); CALCIUM 9.4 mg/dl (8.6-10.4); GFR NON-AFRICAN AMERICAN > 60
[2018-05-05] MEDS: Lactobacillus Acidophilus 500 MU Cap PO SCH (20:33)
--- NOTE | 2018-05-05 22:13 | CP.PCM.PCO ---
Physician Communication Note - Physician Communication Note Physician Communication Note: Please see above
[2018-05-06] MEDS: Divalproex 500 mg ER Tab PO SCH ×2 (09:41→17:03)
--- NOTE | 2018-05-06 09:41 | CT ---
CT left lower extremity/calf HISTORY: Abscess. Comparison: None available. Technique: Multiple contiguous axial images were performed through the left lower extremity/calf without the use of intravenous contrast. Subsequently, sagittal and coronal reformatted images were obtained. This CT exam was performed using one or more of the following dose reduction techniques: Automated exposure control, adjustment of the mA and/or kV according to patient size, and/or use of iterative reconstruction technique. Findings: Within the lateral subcutaneous soft tissues of the mid left calf, best demonstrated on series 3, image 104, there is an elliptical collection measuring 2.1 x 1.2 x 2.7 centimeters demonstrating a Hounsfield unit attenuation of 19. This is of uncertain clinical etiology and may represent a small developing abscess collection versus phlegmon collection versus seroma versus additional etiology. Clinical correlation. Reticulation and edema within the adjacent circumferential subcutaneous soft tissues which may represent cellulitis. Limited evaluation of visualized musculature on CT scan appears grossly preserved. Visualized osseous structures are grossly preserved. Adjacent to the navicular bone there is a prominent well corticated ossific density which may represent an accessory ossicle. Impression: 1. Within the lateral subcutaneous soft tissues of the mid left calf, best demonstrated on series 3, image 104, there is an elliptical collection measuring 2.1 x 1.2 x 2.7 centimeters demonstrating a Hounsfield unit attenuation of 19. This is of uncertain clinical etiology and may represent a small developing abscess collection versus phlegmon collection versus seroma versus additional etiology. Clinical correlation. 2. Reticulation and edema within the adjacent circumferential subcutaneous soft tissues which may represent cellulitis. A preliminary report was generated at 7:48 p.m. on 05/05/[address] Saturnino Mcintyre from [employer]
[2018-05-06 10:06] LABS: BASO % 0.3 % (0.0-2.0); EOS # 0.1 K/uL (0.0-0.7); EOS % 3.2 % (0.0-4.0); HEMOGLOBIN 12.2 g/dL (11.0-16.0); LYMPH # 2.2 K/uL (1.0-4.3); LYMPH % 47.8 % (20.0-40.0); MEAN CELL VOLUME 83.4 fL (81.0-99.0); MEAN CORPUSCULAR HEMOGLOBIN 27.8 pg (27.0-31.0); MEAN CORPUSCULAR HGB CONC 33.4 g/dL (33.0-37.0); MONO # 0.3 K/uL (0.0-0.8); MONO % 6.6 % (0.0-10.0); NEUT # 1.9 K/uL (1.8-7.0); NEUT % 42.1 % (50.0-75.0); RBC 4.38 Mil/uL (3.80-5.20); RED CELL DISTRIBUTION WIDTH 14.8 % (11.5-14.5); WHITE BLOOD COUNT 4.6 K/uL (4.8-10.8)
[2018-05-06 10:23] LABS: ALBUMIN 3.8 g/dL (3.5-5.0); ALT/SGPT 8 U/L (9-52); AST/SGOT 16 U/L (14-36); BLOOD UREA NITROGEN 20 mg/dL (7-17); CALCIUM 8.9 mg/dl (8.6-10.4); GFR NON-AFRICAN AMERICAN > 60
[2018-05-06] MEDS: Lactobacillus Acidophilus 500 MU Cap PO SCH ×2 (10:45→17:03)
--- NOTE | 2018-05-06 10:53 | CP.PCM.PN ---
<Katie Gomez - Last Filed: 05/06/18 10:53> Subjective - Date & Time of Evaluation Date of Evaluation: 05/06/18 Time of Evaluation: 10:48 - Subjective Subjective: Medicine Progress Note for Dr. Rivero Patient seen and examined at bedside this morning. Patient denies chest pain, nausea, vomiting, diarrhea. She endorses haven taken 2 doses of clindamycin already and thinks that her left leg abscess grew from yesterday. Patient would like surgery to see her soon for I&D. Objective - Vital Signs/Intake and Output Vital Signs (last 24 hours): Temp Pulse Resp BP Pulse Ox 97.7 F 69 18 101/69 99 05/06/18 10:20 05/06/18 10:20 05/06/18 10:20 05/06/18 10:20 05/06/18 10:20 - Medications Medications: Current Medications Al Hydrox/Mg Hydrox/Simethicone (Maalox 30 Ml) 30 ml PO TID PRN PRN Reason: Indigestion / Heartburn Clindamycin HCl (Cleocin) 300 mg PO TID [facility]; Protocol Stop: 05/18/18 18:00 Last Admin: 05/06/18 09:41 Dose: 300 mg Clonidine HCl (Catapres) 0.1 mg PO Q4 PRN PRN Reason: COWS Score More or Equal to 5 Divalproex Sodium (Depakote Er) 500 mg PO BID [facility] Last Admin: 05/06/18 09:41 Dose: 500 mg Gabapentin (Neurontin) 300 mg PO TID [facility] Last Admin: 05/06/18 09:42 Dose: 300 mg Hydroxyzine HCl (Atarax) 50 mg PO Q6H PRN PRN Reason: Anxiety Last Admin: 05/06/18 10:45 Dose: 50 mg Ibuprofen (Motrin Tab) 600 mg PO Q6H PRN PRN Reason: Pain, moderate (4-7) Last Admin: 05/06/18 10:45 Dose: 600 mg Lactobacillus Acidophilus (Bacid Acidophilus) 1 cap PO BID [facility] Stop: 06/18/18 20:00 Last Admin: 05/06/18 10:45 Dose: 1 cap Loperamide HCl (Imodium) 2 mg PO Q8 PRN PRN Reason: Diarrhea Methadone HCl (Methadone) 5 mg PO Q24H [facility]; Taper Stop: 05/08/18 09:59 Last Admin: 05/06/18 09:41 Dose: 5 mg Methadone HCl (Methadone) 5 mg PO QPM [facility] Stop: 05/06/18 18:01 Last Admin: 05/05/18 17:17 Dose: 5 mg Mirtazapine (Remeron) 15 mg PO HS [facility] Last Admin: 05/05/18 21:03 Dose: 15 mg Nicotine (Nicoderm Cq) 1 patch TD DAILY [facility] Last Admin: 05/06/18 09:40 Dose: 1 patch Ondansetron HCl (Zofran Tab) 4 mg PO Q8 PRN PRN Reason: Nausea/Vomiting Trazodone HCl (Desyrel) 100 mg PO HS PRN PRN Reason: Insomnia Last Admin: 05/05/18 21:03 Dose: 100 mg - Labs Labs: 05/06/18 09:30 05/06/18 09:30 - Constitutional Appears: Well, Non-toxic - Eye Exam Eye Exam: EOMI, Normal appearance - Neck Exam Neck Exam: Normal Inspection - Respiratory Exam Respiratory Exam: Clear to Ausculation Bilateral, NORMAL BREATHING PATTERN - Cardiovascular Exam Cardiovascular Exam: REGULAR RHYTHM - GI/Abdominal Exam GI & Abdominal Exam: Soft, Normal Bowel Sounds. absent: Tenderness - Neurological Exam Neurological Exam: Alert, Oriented x3 - Skin Additional comments: ttp left lateral calf where there is an abscess approx 4 cm diameter, and 2 cm diameter abscess on right medial hobbs. Multiple eschar scabs all around her b/l shins approx 2 cm in diameter. Assessment and Plan - Assessment and Plan (Free Text) Assessment: 38 y/o female with PMHx of opioid, cocaine, and tobacco abuse, depression, bipolar, hep C, is currently on 7th floor detox. Medicine consult is for her left hobbs abscess. left hobbs abscess -approx 3.5 cm diameter, pain with light touch, erythematous, but patient afeb rile. Was treated for her abscess on admission in 2017, on PO clindamycin, finished course during hospital. Patient w/o leukocytosis and remains afebrile. -blood cx pending -MRSA screen pending -start clindamycin 300 mg TID for 14 days - continue until 05/18. Day 2 today 05/06. -lactobacillus for 44 days total through 06/18 -CT scan of left leg: diffuse sq swelling c/w cellulitis, small fluid collection - small abscess. -general surgery consult placed for Dr. Brumfield for possible bedside I&D. [facility] resident made aware. Appreciate recs. opioid and cocaine abuse, depression, bipolar -per psych management tobacco abuse -continue with nicotine patch daily Hep C -patient not getting treatment, but is agreeable with getting assistance after -per Dr. Louis Massey recs - Dr. Wright GI: [phone] - patient is to call to schedule appt DVT ppx: not indicated GI ppx: not indicated Diet: regular case discussed w/ Dr. Mat Gomez PGY1 <Makayla Rivero V - Last Filed: 05/07/18 01:16> Objective - Vital Signs/Intake and Output Vital Signs (last 24 hours): Temp Pulse Resp BP Pulse Ox 98.4 F 78 18 108/66 99 05/06/18 19:58 05/06/18 19:58 05/06/18 19:58 05/06/18 19:58 05/06/18 19:58 - Medications Medications: Current Medications Al Hydrox/Mg Hydrox/Simethicone (Maalox 30 Ml) 30 ml PO TID PRN PRN Reason: Indigestion / Heartburn Clindamycin HCl (Cleocin) 300 mg PO TID [facility]; Protocol Stop: 05/18/18 18:00 Last Admin: 05/06/18 17:02 Dose: 300 mg Clonidine HCl (Catapres) 0.1 mg PO Q4 PRN PRN Reason: COWS Score More or Equal to 5 Divalproex Sodium (Depakote Er) 500 mg PO BID [facility] Last Admin: 05/06/18 17:03 Dose: 500 mg Gabapentin (Neurontin) 300 mg PO TID [facility] Last Admin: 05/06/18 17:02 Dose: 300 mg Hydroxyzine HCl (Atarax) 50 mg PO Q6H PRN PRN Reason: Anxiety Last Admin: 05/06/18 10:45 Dose: 50 mg Ibuprofen (Motrin Tab) 600 mg PO Q6H PRN PRN Reason: Pain, moderate (4-7) Last Admin: 05/06/18 10:45 Dose: 600 mg Lactobacillus Acidophilus (Bacid Acidophilus) 1 cap PO BID [facility] Stop: 06/18/18 20:00 Last Admin: 05/06/18 17:03 Dose: 1 cap Loperamide HCl (Imodium) 2 mg PO Q8 PRN PRN Reason: Diarrhea Methadone HCl (Methadone) 5 mg PO Q24H [facility]; Taper Stop: 05/08/18 09:59 Last Admin: 05/06/18 09:41 Dose: 5 mg Mirtazapine (Remeron) 15 mg PO HS [facility] Last Admin: 05/06/18 21:15 Dose: 15 mg Nicotine (Nicoderm Cq) 1 patch TD DAILY [facility] Last Admin: 05/06/18 09:40 Dose: 1 patch Ondansetron HCl (Zofran Tab) 4 mg PO Q8 PRN PRN Reason: Nausea/Vomiting Trazodone HCl (Desyrel) 100 mg PO HS PRN PRN Reason: Insomnia Last Admin: 05/06/18 21:15 Dose: 100 mg - Labs Labs: 05/06/18 09:30 05/06/18 09:30 Attending/Attestation - Attestation I have personally seen and examined this patient.: Yes I have fully participated in the care of the patient.: Yes I have reviewed all pertinent clinical information, including history, physical exam and plan: Yes Notes (Text): Patient seen, examined, and case discussed with medical auditor. Medicine is on consult for cellulitis and abscess. Patient has multiple eschars over her bilateral lower extremities; she has noted area over the posterior left lower extremity which is jennifer, fluctuant likely abscess. Patient does not exhibit elevated white count, nor fever, and blood cultures are negative for [address] for general surgery evaluation for possible I&D of the abscess. Patient has been educated to the worse extent of IV drug use all which can end with , which she knows. I did remind her especially injecting in the neck can cause bleeding, dissection of the area, or throw infection to the fascial planes, or to the brain which scared her but she clearly did not know. Patient is aware following hospitalization she will need treatment for hepatitis C either by ID or GI. Heroin withdrawal currently managed by psychiatry. Will continue to follow. left hobbs abscess -approx 3.5 cm diameter, pain with light touch, erythematous, but patient afebrile. Was treated for her abscess on admission in 2017, on PO clindamycin, finished course during hospital. Patient w/o leukocytosis and remains afebrile. -blood cx negative for 24 hours X2 -MRSA screen pending -c/w clindamycin 300 mg TID for 14 days - continue until 05/18. Day 2 today 05/06. -lactobacillus for 44 days total through 06/18 -CT scan of left leg: diffuse sq swelling c/w cellulitis, small fluid collection - small abscess. -general surgery consult placed for Dr. Brumfield for possible bedside I&D. Surgery resident made aware. Appreciate recs. opioid and cocaine abuse, depression, bipolar -per psych management tobacco abuse -continue with nicotine patch daily Hep C -patient not getting treatment, but is agreeable with getting assistance after -per Dr. Louis Massey recs - Dr. Wright GI: [phone] - patient is to call to schedule appt DVT ppx: not indicated GI ppx: not indicated Diet: regular
--- NOTE | 2018-05-06 11:30 | CP.PCM.CON ---
<Raleigh Sethi - Last Filed: 05/06/18 16:26> History of Present Illness - History of Present Illness History of Present Illness: Surgery Consult Note for Dr. Brumfield CC: Left hobbs abscess 38 F w/ PMHx of opioid, cocaine, and tobacco abuse, depression, bipolar, hep C, endocarditis, presented to the hospital for detox for opioid and cocaine use. Surgery consulted by medicine for L hobbs abscess management. Patient states abscess formed approximately 3 days prior. Patient reports 7/10, non radiating, throbbing pain, localized to the left hobbs. Patient denies fevers, chills, nausea, diarrhea, chest pain, SOB. Patient states no discharge from location. Patient admits to using 100 bags of heroin IV daily & 3 grams of cocaine daily. Patient admits to self-injecting in various parts of her body, including her hobbs. Patient admits to previous abscess formation on her legs and she would self I&D the areas. Patient also complained of another abscess forming on her R posterior leg. Patient states that began approximately 1 day prior. Additionally patient states she has a lesion in the upper part of her mouth that also has purulent drainage. Pt denies fevers/chills. PMHx: opioid, cocaine, and tobacco abuse, depression, bipolar, hep C, endocarditis, "hole in heart," PSHx: . Right shoulder and right knee ortho surgeries, patient does not know details of the surgeries; umbilical surgery, patient does not know details of the surgeries FHx: father has had "a lot of heart attacks" SocHx: IVDA - opioids since she was in her 20s, 200 bags and 1 gram of cocaine since 10 y/o. Active tobacco use. Allergies: haloperidol - patient gets myalgias upon taking it Review of Systems - Constitutional Constitutional: absent: Headache, Night Sweats - EENT Eyes: absent: Blurred Vision, Pain Nose/Mouth/Throat: absent: Nose Pain, Bleeding Gums Additional comments: abscess on right side of mouth - Cardiovascular Cardiovascular: absent: Irregular Heart Rhythm, Leg Edema, Palpitations - Respiratory Respiratory: absent: Cough - Gastrointestinal Gastrointestinal: absent: Excessive Flatus, Nausea, Vomiting - Genitourinary Genitourinary: absent: Urinary Frequency, Urinary Hesitance - Musculoskeletal Musculoskeletal: absent: Abnormal Gait, Myalgias, Tingling - Integumentary Integumentary: Swelling. absent: Skin Pain - Neurological Neurological: absent: Paresthesias, Syncope, Tremor - Psychiatric Psychiatric: absent: Anxiety, Confusion - Hematologic/Lymphatic Hematologic: absent: Easy Bleeding Past Patient History - Past Medical History & Family History Past Medical History?: Yes - Past Social History Smoking Status: Current Some Days Smoker - CARDIAC Hx Cardiac Disorders: No (Patent denied.) Hx Hypertension: No (Patent denied.) - PULMONARY Hx Tuberculosis: No (Patent denied.) - NEUROLOGICAL HX Cerebrovascular Accident: No (Patent denied.) Hx Seizures: Yes - HEENT Hx HEENT Problems: No - RENAL Hx Chronic Kidney Disease: No - ENDOCRINE/METABOLIC Hx Endocrine Disorders: No - HEMATOLOGICAL/ONCOLOGICAL Hx Cancer: No (Patent denied.) Hx Human Immunodeficiency Virus (HIV): No (Patent denied.) - INTEGUMENTARY Hx Dermatological Problems: No - MUSCULOSKELETAL/RHEUMATOLOGICAL Hx Falls: Yes Hx Fractures: Yes - GASTROINTESTINAL Hx Gastrointestinal Disorders: No - PSYCHIATRIC Hx Substance Use: Yes - SURGICAL HISTORY Hx Surgeries: Yes Hx Section: Yes Other/Comment: Left leg I&D, , Right shoulder metal plate was inserted. - ANESTHESIA Hx Anesthesia: Yes Hx Anesthesia Reactions: No Meds Allergies/Adverse Reactions: Allergies Allergy/AdvReac Type Severity Reaction Status Date / Time haloperidol [From Haldol] Allergy Severe PAIN Verified 05/06/18 13:36 haloperidol lactate Allergy Severe PAIN Verified 05/06/18 13:36 [From Haldol] - Medications Medications: Current Medications Al Hydrox/Mg Hydrox/Simethicone (Maalox 30 Ml) 30 ml PO TID PRN PRN Reason: Indigestion / Heartburn Clindamycin HCl (Cleocin) 300 mg PO TID [facility]; Protocol Stop: 05/18/18 18:00 Last Admin: 05/06/18 09:41 Dose: 300 mg Clonidine HCl (Catapres) 0.1 mg PO Q4 PRN PRN Reason: COWS Score More or Equal to 5 Divalproex Sodium (Depakote Er) 500 mg PO BID [facility] Last Admin: 05/06/18 09:41 Dose: 500 mg Gabapentin (Neurontin) 300 mg PO TID [facility] Last Admin: 05/06/18 09:42 Dose: 300 mg Hydroxyzine HCl (Atarax) 50 mg PO Q6H PRN PRN Reason: Anxiety Last Admin: 05/06/18 10:45 Dose: 50 mg Ibuprofen (Motrin Tab) 600 mg PO Q6H PRN PRN Reason: Pain, moderate (4-7) Last Admin: 05/06/18 10:45 Dose: 600 mg Lactobacillus Acidophilus (Bacid Acidophilus) 1 cap PO BID [facility] Stop: 06/18/18 20:00 Last Admin: 05/06/18 10:45 Dose: 1 cap Loperamide HCl (Imodium) 2 mg PO Q8 PRN PRN Reason: Diarrhea Methadone HCl (Methadone) 5 mg PO Q24H [facility]; Taper Stop: 05/08/18 09:59 Last Admin: 05/06/18 09:41 Dose: 5 mg Methadone HCl (Methadone) 5 mg PO QPM [facility] Stop: 05/06/18 18:01 Last Admin: 05/05/18 17:17 Dose: 5 mg Mirtazapine (Remeron) 15 mg PO HS [facility] Last Admin: 05/05/18 21:03 Dose: 15 mg Nicotine (Nicoderm Cq) 1 patch TD DAILY [facility] Last Admin: 05/06/18 09:40 Dose: 1 patch Ondansetron HCl (Zofran Tab) 4 mg PO Q8 PRN PRN Reason: Nausea/Vomiting Trazodone HCl (Desyrel) 100 mg PO HS PRN PRN Reason: Insomnia Last Admin: 05/05/18 21:03 Dose: 100 mg Physical Exam - Constitutional Appears: Non-toxic, No Acute Distress, Cachectic - Head Exam Head Exam: NORMAL INSPECTION - Eye Exam Eye Exam: Normal appearance - ENT Exam ENT Exam: Mucous Membranes Moist Additional comments: poor dentition, with multiple teeth missing area of erythema expressing pus on palpation on Right upper margin of gumline - Respiratory Exam Respiratory Exam: Decreased Breath Sounds, Clear to Auscultation Bilateral, NORMAL BREATHING PATTERN. absent: Rales, Rhonchi, Wheezes - Cardiovascular Exam Cardiovascular Exam: +S1, +S2. absent: Systolic Murmur - GI/Abdominal Exam GI & Abdominal Exam: Normal Bowel Sounds, Soft. absent: Firm, Hernia - Extremities Exam Extremities exam: Positive for: full ROM. Negative for: calf tenderness, pedal edema Additional comments: multiple eschars throughout b/l LE Left: 6 cm X 7 cm area of erythema, fluctuant, blanchable, painful on palpation on anterior lateral part of lower leg, no active drainage Right: 2 cm X 2cm area of erythema, indurated, painful on palpation on posterior medial part of lower leg - Back Exam Back exam: absent: CVA tenderness (L), CVA tenderness (R) - Neurological Exam Neurological exam: Alert, Oriented x3 - Psychiatric Exam Psychiatric exam: Normal Affect, Normal Mood - Skin Skin Exam: Dry, Erythema Results - Vital Signs Recent Vital Signs: Last Vital Signs Temp 97.7 F 05/06/18 10:20 Pulse 69 05/06/18 10:20 Resp 18 05/06/18 10:20 BP 101/69 05/06/18 10:20 Pulse Ox 99 05/06/18 10:20 - Labs Result Diagrams: 05/06/18 09:30 05/06/18 09:30 Labs: Laboratory Results - last 24 hr 05/05/18 05/05/18 05/06/18 17:03 17:03 09:30 WBC 6.8 4.6 L RBC 4.70 4.38 Hgb 12.8 12.2 Hct 38.6 36.5 MCV 82.3 83.4 MCH 27.2 27.8 MCHC 33.1 33.4 RDW 15.2 H 14.8 H Plt Count 285 295 MPV 7.8 8.0 Neut % (Auto) 56.0 42.1 L Lymph % (Auto) 33.4 47.8 H Wilkes % (Auto) 7.6 6.6 Eos % (Auto) 2.0 3.2 Baso % (Auto) 1.0 0.3 Neut # (Auto) 3.8 1.9 Lymph # (Auto) 2.3 2.2 Wilkes # (Auto) 0.5 0.3 Eos # (Auto) 0.1 0.1 Baso # (Auto) 0.1 0.0 Sodium 138 Potassium 4.9 Chloride 101 Carbon Dioxide 26 Anion Gap 16 BUN 23 H Creatinine 0.8 Est GFR ( Amer) > 60 Est GFR (Non-Af Amer) > 60 Random Glucose 77 D Calcium 9.4 Phosphorus 5.2 H Magnesium 2.2 Total Bilirubin 0.4 AST 25 ALT 9 Alkaline Phosphatase 84 Total Protein 8.6 H Albumin 4.5 Globulin 4.2 H Albumin/Globulin Ratio 1.1 05/06/18 09:30 WBC RBC Hgb Hct MCV MCH MCHC RDW Plt Count MPV Neut % (Auto) Lymph % (Auto) Wilkes % (Auto) Eos % (Auto) Baso % (Auto) Neut # (Auto) Lymph # (Auto) Wilkes # (Auto) Eos # (Auto) Baso # (Auto) Sodium 138 Potassium 4.3 Chloride 103 Carbon Dioxide 26 Anion Gap 14 BUN 20 H Creatinine 0.8 Est GFR ( Amer) > 60 Est GFR (Non-Af Amer) > 60 Random Glucose 112 H D Calcium 8.9 Phosphorus 4.2 Magnesium 2.1 Total Bilirubin 0.3 AST 16 ALT 8 L Alkaline Phosphatase 70 Total Protein 7.5 Albumin 3.8 Globulin 3.7 Albumin/Globulin Ratio 1.0 Assessment & Plan - Assessment and Plan (Free Text) Assessment: 38 F currently admitted to detox for heroin and cocaine abuse, consulted for abscess on left lower extremity Plan: - NPO after midnight - OR scheduled for I&D tomorrow, 05/07 (for left leg) - Warm compress b/l LE - rec ENT eval for dental abscess - cont ABX - d/w Dr. Brissa Sethi, PGY1 General Surgery <Howard Brumfield B - Last Filed: 05/09/18 20:37> Results - Vital Signs Recent Vital Signs: Last Vital Signs Temp 97 F L 05/08/18 17:20 Pulse 73 05/08/18 17:20 Resp 18 05/08/18 17:20 BP 103/62 05/08/18 17:20 Pulse Ox 100 05/08/18 17:20 - Labs Result Diagrams: 05/06/18 09:30 05/06/18 09:30 Attending/Attestation - Attestation I have personally seen and examined this patient.: Yes I have fully participated in the care of the patient.: Yes I have reviewed all pertinent clinical information: Yes Notes (Text): Pt was seen and examined at bedside Agree with above note and assessment Pt with IVDA with B/L leg abscess LE : B/L leg abscess with multiple open wounds Labs and radiology reviewed Ass: B/L leg abscess Plan: OR for I & D of B/L leg abscess Consent NPO, IVF IV antibiotics c.w current mx Plan d.w pt in detail Risk and benefit explained in detail.
--- NOTE | 2018-05-07 10:52 | CP.PCM.PN ---
<Katie Gomez - Last Filed: 05/07/18 17:16> Subjective - Date & Time of Evaluation Date of Evaluation: 05/07/18 Time of Evaluation: 10:49 - Subjective Subjective: Medicine Progress Note for Dr. Rivero Patient seen and examined at bedside this morning prior to going to the OR for I&D for abscess. Per RN, patient refused morning labs that general surgery ordered. Patient still endorses pain in her abscess but continues to deny fever, chills, sweats, and diarrhea. She thinks maybe the clindamycin is making her nauseated but has not vomited. Patient is hungry being NPO for the OR. Objective - Vital Signs/Intake and Output Vital Signs (last 24 hours): Temp Pulse Resp BP Pulse Ox 98.3 F 83 18 101/64 100 05/07/18 09:10 05/07/18 09:10 05/07/18 09:10 05/07/18 09:10 05/07/18 09:10 - Medications Medications: Current Medications Al Hydrox/Mg Hydrox/Simethicone (Maalox 30 Ml) 30 ml PO TID PRN PRN Reason: Indigestion / Heartburn Clindamycin HCl (Cleocin) 300 mg PO TID [facility]; Protocol Stop: 05/18/18 18:00 Last Admin: 05/07/18 09:17 Dose: 300 mg Clonidine HCl (Catapres) 0.1 mg PO Q4 PRN PRN Reason: COWS Score More or Equal to 5 Divalproex Sodium (Depakote Er) 500 mg PO BID [facility] Last Admin: 05/06/18 17:03 Dose: 500 mg Gabapentin (Neurontin) 300 mg PO TID [facility] Last Admin: 05/06/18 17:02 Dose: 300 mg Hydroxyzine HCl (Atarax) 50 mg PO Q6H PRN PRN Reason: Anxiety Last Admin: 05/06/18 10:45 Dose: 50 mg Ibuprofen (Motrin Tab) 600 mg PO Q6H PRN PRN Reason: Pain, moderate (4-7) Last Admin: 05/06/18 10:45 Dose: 600 mg Lactobacillus Acidophilus (Bacid Acidophilus) 1 cap PO BID [facility] Stop: 06/18/18 20:00 Last Admin: 05/06/18 17:03 Dose: 1 cap Loperamide HCl (Imodium) 2 mg PO Q8 PRN PRN Reason: Diarrhea Methadone HCl (Methadone) 5 mg PO Q24H BANDAR; Taper Stop: 05/08/18 09:59 Last Admin: 05/07/18 09:17 Dose: 5 mg Methadone HCl (Methadone) 5 mg PO BID [facility] Stop: 05/08/18 10:01 Mirtazapine (Remeron) 15 mg PO HS BANDAR Last Admin: 05/06/18 21:15 Dose: 15 mg Nicotine (Nicoderm Cq) 1 patch TD DAILY [facility] Last Admin: 05/06/18 09:40 Dose: 1 patch Ondansetron HCl (Zofran Tab) 4 mg PO Q8 PRN PRN Reason: Nausea/Vomiting Trazodone HCl (Desyrel) 100 mg PO HS PRN PRN Reason: Insomnia Last Admin: 05/06/18 21:15 Dose: 100 mg - Labs Labs: 05/06/18 09:30 05/06/18 09:30 - Constitutional Appears: Well - Head Exam Head Exam: ATRAUMATIC, NORMAL INSPECTION, NORMOCEPHALIC - Eye Exam Eye Exam: EOMI, Normal appearance - ENT Exam ENT Exam: Mucous Membranes Moist Additional comments: right upper molar tender to palpation, white plaque on gum. poor dentition throughout mouth - Neck Exam Neck Exam: Full ROM (track spence above left clavicle 2/2 IVDA) - Respiratory Exam Respiratory Exam: Clear to Ausculation Bilateral, NORMAL BREATHING PATTERN - Cardiovascular Exam Cardiovascular Exam: REGULAR RHYTHM - GI/Abdominal Exam GI & Abdominal Exam: Soft, Normal Bowel Sounds - Extremities Exam Extremities Exam: absent: Normal Inspection Additional comments: ttp left lateral calf where there is an abscess approx 4 cm diameter, and 2 cm diameter abscess on right medial hobbs. Multiple eschar scabs all around her b/l shins approx 2 cm in diameter. - Neurological Exam Neurological Exam: Alert, Awake, Oriented x3 - Psychiatric Exam Psychiatric exam: Normal Affect, Normal Mood - Skin Skin Exam: Dry, Intact, Normal Color, Warm Assessment and Plan - Assessment and Plan (Free Text) Assessment: 38 y/o female with PMHx of opioid, cocaine, and tobacco abuse, depression, bipolar, hep C, is currently on 7th floor detox. Medicine consult is for her left hobbs abscess. left hobbs abscess -s/p I and D on 05/07 POD0 -Spoke to surgery team. Patient currently in PACU, EBL 5 mL, will be sent back up to detox -before the I and D, approx 3.5 cm diameter, pain with light touch, erythematou s, but patient afebrile. Was treated for her abscess on admission in 2017, on PO clindamycin, finished course during hospital. Patient w/o leukocytosis and remains afebrile. -blood cx pending - no growth to date -MRSA screen negative -start clindamycin 300 mg TID for 14 days - continue until 05/18. Day 3 today 05/07. -lactobacillus for 44 days total through 06/18 -CT scan of left leg: diffuse sq swelling c/w cellulitis, small fluid collection - small abscess. -general surgery consult placed for Dr. Brumfield for I&D. To the OR 05/07. Pending further recs. Hx of endocarditis -see 2017 under "select visits", previously seen by Dr. Witt cardiology. Negative stress test in 2017 -however this admission blood cx negative, no leukocytosis and afebrile consistently Hep C -patient not getting treatment, but is agreeable with getting assistance after -per Dr. Louis Massey recs - Dr. Wright GI: [phone] - patient is to call to schedule appt opioid and cocaine abuse, depression, bipolar -per psych management -spoke to Dr. Larson. Patient planning to be d/temo tomorrow 05/08 and cleared in psych standpoint tobacco abuse -continue with nicotine patch daily right upper molar dental abscess -ttp. noted by general surgery and examined by medicine. Patient last saw dentist 6 mo ago. -recommend outpatient dental office visit DVT ppx: not indicated GI ppx: not indicated Diet: regular <Makayla Rivero V - Last Filed: 05/08/18 07:52> Objective - Vital Signs/Intake and Output Vital Signs (last 24 hours): Temp Pulse Resp BP Pulse Ox 97.5 F L 70 75 H 97/67 L 99 05/07/18 20:45 05/07/18 16:49 05/07/18 20:45 05/07/18 20:45 05/07/18 20:45 - Medications Medications: Current Medications Acetaminophen (Tylenol 325mg Tab) 650 mg PO Q6 PRN PRN Reason: Pain, Mild (1-3) Al Hydrox/Mg Hydrox/Simethicone (Maalox 30 Ml) 30 ml PO TID PRN PRN Reason: Indigestion / Heartburn Clindamycin HCl (Cleocin) 300 mg PO TID [facility]; Protocol Stop: 05/18/18 18:00 Last Admin: 05/07/18 17:33 Dose: 300 mg Clonidine HCl (Catapres) 0.1 mg PO Q4 PRN PRN Reason: COWS Score More or Equal to 5 Divalproex Sodium (Depakote Er) 500 mg PO BID [facility] Last Admin: 05/07/18 17:33 Dose: 500 mg Gabapentin (Neurontin) 300 mg PO TID [facility] Last Admin: 05/07/18 17:31 Dose: 300 mg Hydroxyzine HCl (Atarax) 50 mg PO Q6H PRN PRN Reason: Anxiety Last Admin: 05/07/18 17:31 Dose: 50 mg Ibuprofen (Motrin Tab) 600 mg PO Q6H PRN PRN Reason: Pain, moderate (4-7) Last Admin: 05/06/18 10:45 Dose: 600 mg Lactobacillus Acidophilus (Bacid Acidophilus) 1 cap PO BID [facility] Stop: 06/18/18 20:00 Last Admin: 05/07/18 17:33 Dose: 1 cap Loperamide HCl (Imodium) 2 mg PO Q8 PRN PRN Reason: Diarrhea Methadone HCl (Methadone) 5 mg PO Q24H [facility]; Taper Stop: 05/08/18 09:59 Last Admin: 05/07/18 09:17 Dose: 5 mg Methadone HCl (Methadone) 5 mg PO BID [facility] Stop: 05/08/18 10:01 Last Admin: 05/07/18 17:31 Dose: 5 mg Mirtazapine (Remeron) 15 mg PO HS [facility] Last Admin: 05/07/18 21:07 Dose: 15 mg Nicotine (Nicoderm Cq) 1 patch TD DAILY [facility] Last Admin: 05/07/18 11:06 Dose: Not Given Ondansetron HCl (Zofran Tab) 4 mg PO Q8 PRN PRN Reason: Nausea/Vomiting Trazodone HCl (Desyrel) 100 mg PO HS PRN PRN Reason: Insomnia Last Admin: 05/07/18 21:07 Dose: 100 mg - Labs Labs: 05/06/18 09:30 05/06/18 09:30 Attending/Attestation - Attestation I have personally seen and examined this patient.: Yes I have fully participated in the care of the patient.: Yes I have reviewed all pertinent clinical information, including history, physical exam and plan: Yes Notes (Text): This is late computer entry for 05/07/18. Patient seen, examined, and case discussed with day-time resident. patient seen in detox post OR. Patient is ambulatory. Patient has dressing over both bilateral shins. Patient reports she is hungry because she was NPO for the procedure. Patient to continue Clindamycin. I advised the patient to followup with dentist since they are not in house, and has not seen in 6months for possible dental abscess noted by surgery. patient is aware she needs to followup. Patient is also aware that she needs further workup for hepatitis C. Ultimately, she is aware she needs to stop her IV drug use which puts her at risk for infection, sepsis, and ultimately .
--- NOTE | 2018-05-07 10:55 | RAD ---
Date of service: 05/07/2018 HISTORY: preadmission prior to OR COMPARISON: 02/12/2018 FINDINGS: LUNGS: No active pulmonary disease. PLEURA: No significant pleural effusion identified, no pneumothorax apparent. CARDIOVASCULAR: No aortic atherosclerotic calcification present. Normal cardiac size. No pulmonary vascular congestion. OSSEOUS STRUCTURES: No significant abnormalities. VISUALIZED UPPER ABDOMEN: Normal. OTHER FINDINGS: None. IMPRESSION: No active disease.
[2018-05-07] MEDS: Divalproex 500 mg ER Tab PO SCH ×2 (11:07→17:33)
[2018-05-07] MEDS: Lactobacillus Acidophilus 500 MU Cap PO SCH ×2 (12:19→17:33)
[2018-05-07] MEDS ORDERED: Lidocaine/Epinephrine 1% 1:100000 10 ML IJ ONE (13:28)
[2018-05-07] MEDS ORDERED: ceFAZolin 1 gm in NS 1 GM/100 ML BAG IVPB ONE (13:28)
[2018-05-07] MEDS ORDERED: Bupivacaine 0.25% 20 ML INJ IJ ONE (13:28)
[2018-05-07] MEDS ORDERED: Midazolam 2 MG/2 ML VIAL ONE (13:52)
[2018-05-07] MEDS ORDERED: Propofol 10 mg/ml Inj (20 ML) ONE ×2 (13:52→13:56)
--- NOTE | 2018-05-07 14:40 | PCM.SURG1 ---
Surgeon's Initial Post Op Note - Surgeon's Notes Surgeon: Dr. Brumfield Automotive Light Mechanic: Valarie PGY2, Navdeep PGY1 Type of Anesthesia: General LMA Anesthesia Administered By: Malick Sethi Pre-Operative Diagnosis: Bilateral lower extremity abscess Operative Findings: See operative note. Purulent fluid expressed and wound cultures sent. Post-Operative Diagnosis: Same. Operation Performed: Incision and drainage of bilateral lower extremity abscesses. Specimen/Specimens Removed: Wound culture X 2 Estimated Blood Loss: EBL {In ML}: 5 Blood Products Given: N/A Drains Used: No Drains Post-Op Condition: Good Date of Surgery/Procedure: 05/07/18 Time of Surgery/Procedure: 14:40
[2018-05-07] MEDS ORDERED: HYDROmorphone 0.5 mg/0.5 ml ISec IVP PRN (14:56)
--- NOTE | 2018-05-08 02:58 | OP ---
PROCEDURE DATE: 05/07/2018 PREOPERATIVE DIAGNOSES: 1. Bilateral leg abscess. 2. Bilateral open wound. PROCEDURE DONE: 1. Incision and drainage of right leg abscess. 2. Wound debridement of right leg wound and abscess. 3. Incision and drainage of left leg abscess. 4. Wound debridement of left leg wound and abscess. SURGEON: Howard Brumfield MD BILINGUAL SPEECH LANGUAGE PATHOLOGIST: Arnulfo Sheppard DO, PGY-2 resident. TYPE OF ANESTHESIA: General anesthesia with LMA. ESTIMATED BLOOD LOSS: Around 10 mL. DRAINS: Done. PATHOLOGY: The pus was sent for the culture and sensitivity. COMPLICATIONS: None. INTRAOPERATIVE FINDINGS: The patient had left lateral leg abscess as well as left leg open wound, and the patient had right leg medial abscess with open wound. DESCRIPTION OF PROCEDURE: On intraoperative steps, this is a 38-year-old female who was diagnosed with bilateral leg abscess with open wound and the patient was consented for the incision and drainage of the abscess and debridement of the wound, brought to the OR, and placed supine on the operating table. After induction of the anesthesia, the bilateral leg was prepped and draped in usual sterile fashion. A cruciate-type incision was made first on the left leg abscess and approximately 10 mL of pus was drained and the abscess cavity was debrided. The patient also had another wound superior to the left leg that was also cleaned and debrided. The patient's right leg abscess was also drained similarly and abscess cavity was debrided and the dry sterile dressing was applied. The patient tolerated the procedure well. Count of the instrument and gauze was correct. There was no apparent complication. The patient was reversed from anesthesia and sent to the postanesthesia care unit in stable condition. Howard Brumfield MD MTDD
--- NOTE | 2018-05-08 07:00 | CP.PCM.DIS ---
Provider - Provider Date of Admission: 05/03/18 03:55 Attending physician: Makayla Rivero DO Consults: 05/06/18 10:40 General Surgery Consult Routine Comment: Consulting Provider: Howard Brumfield Consulting Physician: Howard Brumfield Reason for Consult: abscess, for I&D over left lower extremity aspect Hospital Course - Lab Results Lab Results: Micro Results 05/07/18 15:21 Leg - Left Gram Stain - Final 05/07/18 15:21 Leg - Right Gram Stain - Final 05/05/18 16:45 Blood Blood Culture - Preliminary NO GROWTH AFTER 48 HOURS 05/05/18 16:15 Blood Blood Culture - Preliminary NO GROWTH AFTER 48 HOURS 05/05/18 17:15 Axilla MRSA Culture (Admit) - Final MRSA NOT DETECTED Most Recent Lab Values WBC 4.6 K/uL (4.8-10.8) L 05/06/18 09:30 RBC 4.38 Mil/uL (3.80-5.20) 05/06/18 09:30 Hgb 12.2 g/dL (11.0-16.0) 05/06/18 09:30 Hct 36.5 % (34.0-47.0) 05/06/18 09:30 MCV 83.4 fL (81.0-99.0) 05/06/18 09:30 MCH 27.8 pg (27.0-31.0) 05/06/18 09:30 MCHC 33.4 g/dL (33.0-37.0) 05/06/18 09:30 RDW 14.8 % (11.5-14.5) H 05/06/18 09:30 Plt Count 295 K/uL (130-400) 05/06/18 09:30 MPV 8.0 fL (7.2-11.7) 05/06/18 09:30 Neut % (Auto) 42.1 % (50.0-75.0) L 05/06/18 09:30 Lymph % (Auto) 47.8 % (20.0-40.0) H 05/06/18 09:30 [place] % (Auto) 6.6 % (0.0-10.0) 05/06/18 09:30 Eos % (Auto) 3.2 % (0.0-4.0) 05/06/18 09:30 Baso % (Auto) 0.3 % (0.0-2.0) 05/06/18 09:30 Neut # (Auto) 1.9 K/uL (1.8-7.0) 05/06/18 09:30 Lymph # (Auto) 2.2 K/uL (1.0-4.3) 05/06/18 09:30 [place] # (Auto) 0.3 K/uL (0.0-0.8) 05/06/18 09:30 Eos # (Auto) 0.1 K/uL (0.0-0.7) 05/06/18 09:30 Baso # (Auto) 0.0 K/uL (0.0-0.2) 05/06/18 09:30 Sodium 138 mmol/L (132-148) 05/06/18 09:30 Potassium 4.3 mmol/L (3.6-5.2) 05/06/18 09:30 Chloride 103 mmol/L (98-107) 05/06/18 09:30 Carbon Dioxide 26 mmol/L (22-30) 05/06/18 09:30 Anion Gap 14 (10-20) 05/06/18 09:30 BUN 20 mg/dL (7-17) H 05/06/18 09:30 Creatinine 0.8 mg/dL (0.7-1.2) 05/06/18 09:30 Est GFR ( Amer) > 60 05/06/18 09:30 Est GFR (Non-Af Amer) > 60 05/06/18 09:30 Random Glucose 112 mg/dL (65-105) H D 05/06/18 09:30 Calcium 8.9 mg/dl (8.6-10.4) 05/06/18 09:30 Phosphorus 4.2 mg/dL (2.5-4.5) 05/06/18 09:30 Magnesium 2.1 mg/dL (1.6-2.3) 05/06/18 09:30 Total Bilirubin 0.3 mg/dL (0.2-1.3) 05/06/18 09:30 AST 16 U/L (14-36) 05/06/18 09:30 ALT 8 U/L (9-52) L 05/06/18 09:30 Alkaline Phosphatase 70 U/L (38-126) 05/06/18 09:30 Total Protein 7.5 g/dL (6.3-8.3) 05/06/18 09:30 Albumin 3.8 g/dL (3.5-5.0) 05/06/18 09:30 Globulin 3.7 gm/dL (2.2-3.9) 05/06/18 09:30 Albumin/Globulin Ratio 1.0 (1.0-2.1) 05/06/18 09:30 Urine Color Yellow (YELLOW) 05/03/18 02:19 Urine Clarity Hazy (Clear) 05/03/18 02:19 Urine pH 5.0 (5.0-8.0) 05/03/18 02:19 Ur Specific [place] 1.023 (1.003-1.030) 05/03/18 02:19 Urine Protein 1+ mg/dL (NEGATIVE) H 05/03/18 02:19 Urine Glucose (UA) Normal mg/dL (Normal) 05/03/18 02:19 Urine Ketones Negative mg/dL (NEGATIVE) 05/03/18 02:19 Urine Blood 1+ (NEGATIVE) H 05/03/18 02:19 Urine Nitrate Negative (NEGATIVE) 05/03/18 02:19 Urine Bilirubin Negative (NEGATIVE) 05/03/18 02:19 Urine Urobilinogen Normal mg/dL (0.2-1.0) 05/03/18 02:19 Ur Leukocyte Esterase Trace [place]/uL (Negative) 05/03/18 02:19 Urine WBC (Auto) 21 /hpf (0-5) H 05/03/18 02:19 Urine RBC (Auto) 4 /hpf (0-3) H 05/03/18 02:19 Ur Squamous Epith Cells 3 /hpf (0-5) 05/03/18 02:19 Urine Bacteria Rare (<OCC) 05/03/18 02:19 Hyaline Casts 0-2 /lpf (0-2) 05/03/18 02:19 Urine HCG, Qual Negative (NEGATIVE) 05/06/18 19:20 Urine Opiates Screen Positive (NEGATIVE) H 05/03/18 02:19 Urine Methadone Screen Negative (NEGATIVE) 05/03/18 02:19 Ur Barbiturates Screen Negative (NEGATIVE) 05/03/18 02:19 Ur Phencyclidine Scrn Negative (NEGATIVE) 05/03/18 02:19 Ur Amphetamines Screen Negative (NEGATIVE) 05/03/18 02:19 U Benzodiazepines Scrn Negative (NEGATIVE) 05/03/18 02:19 U Oth Cocaine Metabols Positive (NEGATIVE) H 05/03/18 02:19 U Cannabinoids Screen Negative (NEGATIVE) 05/03/18 02:19 Alcohol, Quantitative < 10 mg/dl (0-10) 05/03/18 01:58 Discharge Exam - Head Exam Head Exam: ATRAUMATIC, NORMAL INSPECTION, NORMOCEPHALIC Discharge Plan - Follow Up Plan Condition: FAIR Disposition: HOME/ ROUTINE Additional Instructions: Discharge Hotline Numbers: [place] [facility] 24 Hour Hotline: 9-993-610 HELP (4784) AA- Alcoholics Anonymous 24 Hour Hotline: 0-986-589- 2209 NA- Narcotics Anonymous 24 Hour Hotline: [place] Addictions Services Hotline: [place] Quitline Self-Help Meeting Websites: AA Meeting List: www.nnjaa.org NA Meeting List: www.narcoticsanonymous[place].org If needed you can reach the detox unit at Avoid all mood and mind altering substances including alcohol. Make every effort to make 90 meetings in 90 days and obtain a sponsor and get involved in 12 step recovery. Follow up with you primary doctor for your medical needs Nutrition: Eat balanced meals incorporating fruits, vegetables and protein. Drink plenty of water throughout the day at least 8 to 10 cups. Sleep is extremely important in your recovery. Follow Up Appointments: Transportation: [facility] [address] [facility] [address] Ext [phone] [place] [facility] [address] [address] [address] [employer]
--- NOTE | 2018-05-08 08:25 | PCM.PYCHDC ---
Mental Status Examination - Mental Status Examination Orientation: Person Discharge Summary - Discharge Note Consultations:: List each consultation separately and include: 1. Reason for request. 2. Findings. 3. Follow-up Consultations: Medicine and surgery consulted. Help appreciated She had a minor operation on her leg where there was a huge abscess. Summary of Hospital Course include:: 1. Description of specific treatment plan utilized for patients during their course of treatmen. 2. Summarize the time- course for resolution of acute symptoms and/or regressed behaviors. 3. Describe issues identified and worked on during hospitalization. 4. Describe medication utilized. 5. Describe medical problems identified and treated. 6. Reassessment of suicide risk Summary of Hospital Course: Patient is a 38 years old, single, employed, female with history of depression, heroin and cocaine use. She is well-known from many admissions. Opioids: Patient started using heroin at 22 years of age, increased gradually to "200 bags" of heroin daily, IV. Her last use of heroin was yesterday. Longest period of abstinence was 4 years from [id number]. Patient relapsed on heroin in 2010 after her fiance committed suicide by hanging. Patient has history of 7 detox and 7 rehabs in the past. She says she left us and went to [facility] for about a month but relapsed quickly after completion. Cocaine: Patient started using cocaine at 10 years of age, was using 1 g of cocaine daily. Last used yesterday. Patient smokes one pack of cigarettes daily and is requesting for nicotine patch. Patient has history of one , and Hep C Psych: Dx'ed with bipolar d/o and also depression. Non-comp with meds Patient was born in [place] and has GED. She was working as power lineman. Never , has one 12 years old son who lives with patient's mother. Patient lives with a friend who is an enabler she claims bc he gives her lots of money. - Diagnosis (1) Opioid use disorder, severe, dependence Current Visit: No Status: Acute - Final Diagnosis (DSM 5) Condition upon Discharge: FAIR Disposition: HOME/ ROUTINE Follow-up Treatment Plan: Taper with methadone Remeron for depression and insomnia Gabapentin for augmentation Depakote for mood swings As needed medications All risks, benefits and alternatives of the meds discussed, and the pt agreed and understood. Attend groups and activities Supportive therapy and psychoeducation MN for abstinence CBT for relapse prevention Encourage MAT Refer to rehab or IOP, and self-help groups Teach healthy lifestyle methods, i.e. diet, exercise, meditation Smoking cessation with MN Nicotine patch if needed Prescriptions/Medication Reconciliation: Divalproex [Depakote ER] 500 mg PO BID #60 ter Gabapentin [Neurontin] 300 mg PO TID #90 cap hydrOXYzine HCl [Atarax] 50 mg PO DAILY PRN #30 tab PRN Reason: Anxiety Mirtazapine [Remeron] 15 mg PO HS #30 tab traZODone [Desyrel] 100 mg PO HS PRN #30 tab PRN Reason: Insomnia
--- NOTE | 2018-05-08 08:25 | PCM.PYCHPN ---
Psychiatric Progress Note - Psychiatric Progress Note Patient seen today, length of contact: 17 min Patient Chief Complaint: "Not well" Problems Identified/Issues Discussed: The pt is seen, chart reviewed, case discussed with staff. Support and psychoeducation given, CBT and HI used briefly No new symptoms reported, improving slowly and needs more time No SEs from medications, risks discussed. After care discussed - she plans to move to [place] with her BF Extra dose needed bc of ongoing sxs Medication Change: Yes (detox changes daily) Medical Record Reviewed: Yes Mental Status Examination - Cognitive Function Orientation: Person - Mood Mood: Depressed, Anxious - Affect Affect: Constricted - Speech Speech: Appropriate - Formal Thought Process Formal Thought Process: No Impairment - Suicidal Ideation Suicidal Ideation: No - Homicidal Ideation Homicidal Ideation: No Goal/Treatment Plan - Goal/Treatment Plan Need for Continued Stay: Discharge may exacerbated symptoms, Severe functional impairment Progress Toward Problem(s) and Goals/Treatment Plan: Taper with methadone Remeron for depression and insomnia Gabapentin for augmentation Depakote for mood swings As needed medications All risks, benefits and alternatives of the meds discussed, and the pt agreed and understood. Attend groups and activities Supportive therapy and psychoeducation HI for abstinence CBT for relapse prevention Encourage MAT Refer to rehab or IOP, and self-help groups Teach healthy lifestyle methods, i.e. diet, exercise, meditation Smoking cessation with HI Nicotine patch if needed
--- NOTE | 2018-05-08 08:25 | PCM.PYCHPN ---
Psychiatric Progress Note - Psychiatric Progress Note Patient seen today, length of contact: 17 min Patient Chief Complaint: "Not well" Problems Identified/Issues Discussed: The pt is seen, chart reviewed, case discussed with staff. Support and psychoeducation given, CBT and AK used briefly No new symptoms reported, improving slowly and needs more time No SEs from medications, risks discussed. After care discussed - she plans to move to [place] with her BF Extra dose needed bc of ongoing sxs Medication Change: Yes (detox changes daily) Medical Record Reviewed: Yes Mental Status Examination - Cognitive Function Orientation: Person - Mood Mood: Depressed, Anxious - Affect Affect: Constricted - Speech Speech: Appropriate - Formal Thought Process Formal Thought Process: No Impairment - Suicidal Ideation Suicidal Ideation: No - Homicidal Ideation Homicidal Ideation: No Goal/Treatment Plan - Goal/Treatment Plan Need for Continued Stay: Discharge may exacerbated symptoms, Severe functional impairment Progress Toward Problem(s) and Goals/Treatment Plan: Taper with methadone Remeron for depression and insomnia Gabapentin for augmentation Depakote for mood swings As needed medications All risks, benefits and alternatives of the meds discussed, and the pt agreed and understood. Attend groups and activities Supportive therapy and psychoeducation AK for abstinence CBT for relapse prevention Encourage MAT Refer to rehab or IOP, and self-help groups Teach healthy lifestyle methods, i.e. diet, exercise, meditation Smoking cessation with AK Nicotine patch if needed
[2018-05-08] MEDS: Divalproex 500 mg ER Tab PO SCH ×2 (10:40→17:13)
--- NOTE | 2018-05-08 11:03 | CP.PCM.PN ---
<Raleigh Sethi - Last Filed: 05/08/18 15:21> Subjective - Date & Time of Evaluation Date of Evaluation: 05/08/18 Time of Evaluation: 07:15 - Subjective Subjective: Surgery Progress Note for Dr. Brumfield Patient seen and examined at bedside. Patient states she is having 7/10, non radiating pain in b/l LE post- op. Patient states she cannot even walk due to the pain. Patient denies headaches,vision changes, chest pain, SOB, abdominal pain, nausea, vomiting, fevers, chills. Objective - Vital Signs/Intake and Output Vital Signs (last 24 hours): Temp Pulse Resp BP Pulse Ox 97.5 F L 70 75 H 97/67 L 99 05/07/18 20:45 05/07/18 16:49 05/07/18 20:45 05/07/18 20:45 05/07/18 20:45 - Medications Medications: Current Medications Acetaminophen (Tylenol 325mg Tab) 650 mg PO Q6 PRN PRN Reason: Pain, Mild (1-3) Al Hydrox/Mg Hydrox/Simethicone (Maalox 30 Ml) 30 ml PO TID PRN PRN Reason: Indigestion / Heartburn Clindamycin HCl (Cleocin) 300 mg PO TID [facility]; Protocol Stop: 05/18/18 18:00 Last Admin: 05/08/18 10:39 Dose: 300 mg Clonidine HCl (Catapres) 0.1 mg PO Q4 PRN PRN Reason: COWS Score More or Equal to 5 Divalproex Sodium (Depakote Er) 500 mg PO BID [facility] Last Admin: 05/08/18 10:40 Dose: 500 mg Gabapentin (Neurontin) 300 mg PO TID [facility] Last Admin: 05/08/18 10:39 Dose: 300 mg Hydroxyzine HCl (Atarax) 50 mg PO Q6H PRN PRN Reason: Anxiety Last Admin: 05/07/18 17:31 Dose: 50 mg Ibuprofen (Motrin Tab) 600 mg PO Q6H PRN PRN Reason: Pain, moderate (4-7) Last Admin: 05/06/18 10:45 Dose: 600 mg Lactobacillus Acidophilus (Bacid Acidophilus) 1 cap PO BID [facility] Stop: 06/18/18 20:00 Last Admin: 05/07/18 17:33 Dose: 1 cap Loperamide HCl (Imodium) 2 mg PO Q8 PRN PRN Reason: Diarrhea Mirtazapine (Remeron) 15 mg PO HS [facility] Last Admin: 05/07/18 21:07 Dose: 15 mg Nicotine (Nicoderm Cq) 1 patch TD DAILY [facility] Last Admin: 05/08/18 10:38 Dose: 1 patch Ondansetron HCl (Zofran Tab) 4 mg PO Q8 PRN PRN Reason: Nausea/Vomiting Trazodone HCl (Desyrel) 100 mg PO HS PRN PRN Reason: Insomnia Last Admin: 05/07/18 21:07 Dose: 100 mg - Labs Labs: 05/06/18 09:30 05/06/18 09:30 - Constitutional Appears: Non-toxic, No Acute Distress - Head Exam Head Exam: NORMAL INSPECTION - Eye Exam Eye Exam: EOMI, Normal appearance Pupil Exam: NORMAL ACCOMODATION - ENT Exam ENT Exam: Mucous Membranes Moist - Respiratory Exam Respiratory Exam: Clear to Ausculation Bilateral, NORMAL BREATHING PATTERN. absent: Rales, Rhonchi, Wheezes - Cardiovascular Exam Cardiovascular Exam: +S1, +S2 - GI/Abdominal Exam GI & Abdominal Exam: Soft, Normal Bowel Sounds. absent: Guarding, Rigid - Extremities Exam Extremities Exam: Full ROM. absent: Calf Tenderness, Pedal Edema Additional comments: Dressing in b/l LE Dressing clean, dry, intact No erythema present on leg - Back Exam Back Exam: absent: CVA tenderness (L), CVA tenderness (R) - Neurological Exam Neurological Exam: Alert, Awake, Oriented x3 - Psychiatric Exam Psychiatric exam: Normal Affect, Normal Mood Assessment and Plan - Assessment and Plan (Free Text) Assessment: 38 y F s/p I&D of B/L LE abscess, POD #1 Plan: - Pain management - continue abx - packing changes Further recs per Dr. Brissa Sethi, PGY1 Surgery <Howard Brumfield - Last Filed: 05/09/18 20:37> Objective - Vital Signs/Intake and Output Vital Signs (last 24 hours): Temp Pulse Resp BP Pulse Ox 97 F L 73 18 103/62 100 05/08/18 17:20 05/08/18 17:20 05/08/18 17:20 05/08/18 17:20 05/08/18 17:20 - Labs Labs: 05/06/18 09:30 05/06/18 09:30 Attending/Attestation - Attestation I have personally seen and examined this patient.: Yes I have fully participated in the care of the patient.: Yes I have reviewed all pertinent clinical information, including history, physical exam and plan: Yes Notes (Text): Pt was seen and examined at bedside Agree with above note and assessment Pt is improving clinically Local wound care f.u as outpt IV antibiotics c.w current mx Plan d.w pt in detail Risk and benefit explained in detail.
[2018-05-08] MEDS: Lactobacillus Acidophilus 500 MU Cap PO SCH ×2 (11:10→17:14)
[2018-05-08 11:18] VITALS: RESP 18
--- NOTE | 2018-05-08 14:57 | CP.PCM.PN ---
Subjective - Date & Time of Evaluation Date of Evaluation: 05/08/18 Time of Evaluation: 14:54 - Subjective Subjective: Medicine Progress Note for Dr. Rivero Patient seen and examined at bedside this morning. Patient was seen resting in bed in no acute distress. She only talked when asked questions. Denies chest pain, SOB, vomiting, diarrhea, fever, chills. Endorses some nausea without vomiting she thinks due to the clindamycin. She states that the I and D went well yesterday by gen surg. Objective - Vital Signs/Intake and Output Vital Signs (last 24 hours): Temp Pulse Resp BP Pulse Ox 97.9 F 85 18 122/69 99 05/08/18 14:37 05/08/18 14:37 05/08/18 14:37 05/08/18 14:37 05/08/18 14:37 - Medications Medications: Current Medications Acetaminophen (Tylenol 325mg Tab) 650 mg PO Q6 PRN PRN Reason: Pain, Mild (1-3) Al Hydrox/Mg Hydrox/Simethicone (Maalox 30 Ml) 30 ml PO TID PRN PRN Reason: Indigestion / Heartburn Clindamycin HCl (Cleocin) 300 mg PO TID [facility]; Protocol Stop: 05/18/18 18:00 Last Admin: 05/08/18 14:00 Dose: 300 mg Clonidine HCl (Catapres) 0.1 mg PO Q4 PRN PRN Reason: COWS Score More or Equal to 5 Last Admin: 05/08/18 14:00 Dose: 0.1 mg Divalproex Sodium (Depakote Er) 500 mg PO BID [facility] Last Admin: 05/08/18 10:40 Dose: 500 mg Gabapentin (Neurontin) 300 mg PO TID [facility] Last Admin: 05/08/18 14:02 Dose: 300 mg Hydroxyzine HCl (Atarax) 50 mg PO Q6H PRN PRN Reason: Anxiety Last Admin: 05/07/18 17:31 Dose: 50 mg Ibuprofen (Motrin Tab) 600 mg PO Q6H PRN PRN Reason: Pain, moderate (4-7) Last Admin: 05/06/18 10:45 Dose: 600 mg Lactobacillus Acidophilus (Bacid Acidophilus) 1 cap PO BID [facility] Stop: 06/18/18 20:00 Last Admin: 05/08/18 11:10 Dose: Not Given Loperamide HCl (Imodium) 2 mg PO Q8 PRN PRN Reason: Diarrhea Mirtazapine (Remeron) 15 mg PO HS [facility] Last Admin: 05/07/18 21:07 Dose: 15 mg Nicotine (Nicoderm Cq) 1 patch TD DAILY [facility] Last Admin: 05/08/18 10:38 Dose: 1 patch Ondansetron HCl (Zofran Tab) 4 mg PO Q8 PRN PRN Reason: Nausea/Vomiting Trazodone HCl (Desyrel) 100 mg PO HS PRN PRN Reason: Insomnia Last Admin: 05/07/18 21:07 Dose: 100 mg - Labs Labs: 05/06/18 09:30 05/06/18 09:30 - Constitutional Appears: Well, Non-toxic - Head Exam Head Exam: ATRAUMATIC, NORMAL INSPECTION, NORMOCEPHALIC - Eye Exam Eye Exam: EOMI, Normal appearance - ENT Exam Additional comments: poor dentition, white plaque on right upper molar that is ttp - Neck Exam Additional comments: track spence 2/2 IVDA above left clavicle - Respiratory Exam Respiratory Exam: Clear to Ausculation Bilateral, NORMAL BREATHING PATTERN - Cardiovascular Exam Cardiovascular Exam: REGULAR RHYTHM - GI/Abdominal Exam GI & Abdominal Exam: Soft, Normal Bowel Sounds. absent: Guarding, Rigid, Tenderness - Extremities Exam Extremities Exam: Normal Capillary Refill Additional comments: dressing bandages on bilateral shins - Neurological Exam Neurological Exam: Alert, Awake, Oriented x3 - Skin Skin Exam: Dry, Intact, Normal Color, Warm Assessment and Plan - Assessment and Plan (Free Text) Assessment: 38 y/o female with PMHx of opioid, cocaine, and tobacco abuse, depression, bipolar, hep C, is currently on 7th floor detox. Medicine consult is for her left hobbs abscess. left hobbs abscess -s/p I and D on 05/07 POD1 -before the I and D, approx 3.5 cm diameter, pain with light touch, erythematous, but patient afebrile. Was treated for her abscess on admission in 2016, on PO clindamycin, finished course during hospital. Patient w/o leukocytosis and remains afebrile. -blood cx pending - no growth to date -MRSA screen negative -start clindamycin 300 mg TID for 14 days - continue until 05/18. Day 4 today 05/08. -lactobacillus for 44 days total through 06/18 -CT scan of left leg: diffuse sq swelling c/w cellulitis, small fluid collection - small abscess. -general surgery consult placed for Dr. Brumfield for I&D. To the OR 05/07. Pending further recs. Hx of endocarditis -see 2017 under "select visits", previously seen by Dr. Witt cardiology. Negative stress test in 2017 -however this admission blood cx negative, no leukocytosis and afebrile consistently Hep C -patient not getting treatment, but is agreeable with getting assistance after -per Dr. Louis Massey recs - Dr. Wright GI: [phone] - patient is to call to schedule appt opioid and cocaine abuse, depression, bipolar -per psych management -see discharge summary per psych 05/08 tobacco abuse -continue with nicotine patch daily right upper molar dental abscess -ttp. noted by general surgery and examined by medicine. Patient last saw dentist 6 mo ago. -recommend outpatient dental office visit DVT ppx: not indicated GI ppx: not indicated Diet: regular case discussed w/ Dr. Mat Gomez PGY1
--- NOTE | 2018-05-08 15:50 | PCM.PYCHPN ---
Psychiatric Progress Note - Psychiatric Progress Note Patient seen today, length of contact: 17 min Patient Chief Complaint: "Not well" Problems Identified/Issues Discussed: The pt is seen, chart reviewed, case discussed with staff. Support and psychoeducation given, CBT and ME used briefly No new symptoms reported, improving slowly and needs more time No SEs from medications, risks discussed. After care discussed - she plans to move to [place] with her BF Extra dose needed bc of ongoing sxs Medication Change: Yes (detox changes daily) Medical Record Reviewed: Yes Mental Status Examination - Cognitive Function Orientation: Person - Mood Mood: Depressed, Anxious - Affect Affect: Constricted - Speech Speech: Appropriate - Formal Thought Process Formal Thought Process: No Impairment - Suicidal Ideation Suicidal Ideation: No - Homicidal Ideation Homicidal Ideation: No Goal/Treatment Plan - Goal/Treatment Plan Need for Continued Stay: Discharge may exacerbated symptoms, Severe functional impairment Progress Toward Problem(s) and Goals/Treatment Plan: Taper with methadone Remeron for depression and insomnia Gabapentin for augmentation Depakote for mood swings As needed medications All risks, benefits and alternatives of the meds discussed, and the pt agreed and understood. Attend groups and activities Supportive therapy and psychoeducation ME for abstinence CBT for relapse prevention Encourage MAT Refer to rehab or IOP, and self-help groups Teach healthy lifestyle methods, i.e. diet, exercise, meditation Smoking cessation with ME Nicotine patch if needed
[2018-05-08 17:21] VITALS: BP 103/62; PULSE 73; TEMP 97; O2SAT 100
== END 2018-05-08 20:48 | disposition home or self-care (01) | DRG 744 ==
LOC: C.ER 01:05 → C.7D 03:55
PROVIDERS: ADMIT Hospitalist; ATTEND Psychiatry & Neurology Psychiatry
PROC: 0JDP0ZZ Extraction of Left Lower Leg Subcutaneous Tissue and Fascia, Open Approach (ICD-10-PCS; 2018-05-07)
PROC: 0JDN0ZZ Extraction of Right Lower Leg Subcutaneous Tissue and Fascia, Open Approach (ICD-10-PCS; 2018-05-07)
PROC: 0Y9H0ZZ Drainage of Right Lower Leg, Open Approach (ICD-10-PCS; 2018-05-07)
PROC: 0Y9J0ZZ Drainage of Left Lower Leg, Open Approach (ICD-10-PCS; principal; 2018-05-07 13:45)
DX: F11.23 Opioid dependence with withdrawal (principal); L02.415 Cutaneous abscess of right lower limb; L02.416 Cutaneous abscess of left lower limb; L03.116 Cellulitis of left lower limb; B19.20 Unspecified viral hepatitis C without hepatic coma; F17.210 Nicotine dependence, cigarettes, uncomplicated; F31.9 Bipolar disorder, unspecified; G47.00 Insomnia, unspecified; K04.7 Periapical abscess without sinus; F14.10 Cocaine abuse, uncomplicated; F32.9 Major depressive disorder, single episode, unspecified

== ENCOUNTER 2018-07-08 02:59 | Inpatient (IN) | payer OTHER ==
--- NOTE | 2018-07-08 03:24 | C.PDOC ---
History Of Present Illness Patient presents requesting detox from heroin, last use today. Denies physical complaints at this time. Time Seen by Provider: 07/08/18 03:24 Chief Complaint (Nursing): Substance Abuse History Per: Patient History/Exam Limitations: no limitations Onset/Duration Of Symptoms: Hrs Current Symptoms Are (Timing): Still Present Suicide/Self Injury Attempted (Context): Cut Wrists Severity: None Pain Scale Rating Of: 0 Associated Symptoms: denies: Depression, Suicidal Thoughts Involuntary Hold By: None Recent travel outside of the [place]: No Additional History Per: Patient Past Medical History Reviewed: Historical Data, Nursing Documentation, Vital Signs - Medical History PMH: Fractures, Hepatitis (Hep C from using someone elses needle.), Seizures Denies: Diabetes (Patent denied.), HIV (Patent denied.), HTN (Patent denied.), Chronic Kidney Disease, Sexually Transmitted Disease (Patent denied.) - [facility] Procedures DETOXIFICATION SERVICES FOR SUBSTANCE ABUSE TREATMENT (06/17/17) DRAINAGE OF LEFT LOWER LEG, OPEN APPROACH (05/03/18) DRAINAGE OF RIGHT LOWER LEG, OPEN APPROACH (05/03/18) EXTRACTION OF L LOW LEG SUBCU/FASCIA, OPEN APPROACH (05/03/18) EXTRACTION OF R LOW LEG SUBCU/FASCIA, OPEN APPROACH (05/03/18) GROUP PSYCHOTHERAPY (02/09/18) INDIV PSYCHOTHERAPY FOR SUBSTANCE ABUSE TREATMENT, SUPPORT (09/12/16) INDIV PSYCHOTHERAPY FOR SUBSTANCE ABUSE, COGNITIV BEHAVIORAL (09/12/16) INDIV PSYCHOTHERAPY FOR SUBSTANCE ABUSE, PSYCHOEDUCATION (09/12/16) INDIVIDUAL PSYCHOTHERAPY, SUPPORTIVE (02/09/18) Family History: States: No Known Family Hx - Social History Hx Alcohol Use: No Hx Substance Use: Yes - Immunization History Hx Tetanus Toxoid Vaccination: No Hx Influenza Vaccination: No Hx Pneumococcal Vaccination: No Review Of Systems Constitutional: Negative for: Fever, Chills Cardiovascular: Negative for: Chest Pain, Palpitations Respiratory: Negative for: Cough, Shortness of Breath Gastrointestinal: Negative for: Nausea, Vomiting Neurological: Negative for: Weakness, Numbness Physical Exam - Physical Exam Appears: Non-toxic Skin: Warm, Dry Head: Normacephalic Eye(s): bilateral: Normal Inspection Oral Mucosa: Moist Chest: Symmetrical, No Tenderness Cardiovascular: Rhythm Regular Respiratory: No Rales, No Rhonchi, No Wheezing Gastrointestinal/Abdominal: Soft, No Tenderness Back: No CVA Tenderness Extremity: Normal ROM Extremity: Bilateral: Atraumatic Neurological/Psych: Oriented x3 Gait: Steady ED Course And Treatment - Laboratory Results Result Diagrams: 07/08/18 04:06 07/08/18 04:06 Progress Note: Blood work and UA ordered. Crisis notified. Disposition Discussed With Dr.: Key Wise Comment: accetped the pt onher service and took over the care at 4:56 AM Doctor Will See Patient In The: Hospital Counseled Patient/Family Regarding: Studies Performed, Diagnosis - Disposition Disposition: HOSPITALIZED Disposition Time: 03:24 Condition: FAIR Forms: [facility] ([place]) - POA Present On Arrival: Poor Glycemic Control - Clinical Impression Clinical Impression: Drug abuse, Heroin abuse, Cocaine abuse - Scribe Statement The provider has reviewed the documentation as recorded by the Scribaman Reddy All medical record entries made by the Scribe were at my direction and personally dictated by me. I have reviewed the chart and agree that the record accurately reflects my personal performance of the history, physical exam, medical decision making, and the department course for this patient. I have also personally directed, reviewed, and agree with the discharge instructions and di sposition. Decision To Admit - Pt Status Changed To: Hospital Disposition Of: Inpatient - Admit Certification Admit to Inpatient:: After my assessment, the patient will require hospit alization for at least two midnights. This is because of the severity of symptoms shown, intensity of services needed, and/or the medical risk in this patient being treated as an outpatient. - InPatient: Physician Admission Certification: I certify that this patient requires 2 or more midnights of care for the following reason:: After my assessment, the kate ent will require hospitalization for at least two midnights. This is because of the severity of symptoms shown, intensity of services needed, and/or the medical risk in this patient being treated as an outpatient. - . Bed Request Type: Detox Admitting Physician: Key Wise Patient Diagnosis: Drug abuse, Heroin abuse, Cocaine abuse
[2018-07-08 03:26] VITALS: BMI 20.5
[2018-07-08 04:11] LABS: BASO # 0.1 K/uL (0.0-0.2); BASO % 0.9 % (0.0-2.0); EOS % 0.5 % (0.0-4.0); HEMOGLOBIN 11.1 g/dL (11.0-16.0); LYMPH # 1.8 K/uL (1.0-4.3); LYMPH % 22.7 % (20.0-40.0); MEAN CELL VOLUME 82.5 fL (81.0-99.0); MEAN CORPUSCULAR HEMOGLOBIN 27.3 pg (27.0-31.0); MEAN CORPUSCULAR HGB CONC 33.1 g/dL (33.0-37.0); MEAN PLATELET VOLUME 7.7 fL (7.2-11.7); MONO # 0.5 K/uL (0.0-0.8); MONO % 6.6 % (0.0-10.0); NEUT # 5.6 K/uL (1.8-7.0); NEUT % 69.3 % (50.0-75.0); RBC 4.06 Mil/uL (3.80-5.20); WHITE BLOOD COUNT 8.1 K/uL (4.8-10.8)
[2018-07-08 04:21] LABS: HCG,QUALITATIVE URINE NEGATIVE (NEGATIVE)
[2018-07-08 04:23] LABS: ALB/GLOB RATIO 1.3 (1.0-2.1); ALBUMIN 4.3 g/dL (3.5-5.0); ALT/SGPT 9 U/L (9-52); AST/SGOT 25 U/L (14-36); BLOOD UREA NITROGEN 17 mg/dL (7-17); CALCIUM 9.6 mg/dl (8.6-10.4); GFR NON-AFRICAN AMERICAN 56
[2018-07-08 04:24] LABS: SQUAMOUS EPITHIAL 5 /hpf (0-5); URINE BACTERIA RARE (<OCC); URINE BILIRUBIN NEGATIVE (NEGATIVE); URINE BLOOD NEGATIVE (NEGATIVE); URINE CALCIUM OXALATE CRYSTALS OCC /hpf (<OCC); URINE CLARITY Hazy (Clear); URINE COLOR Amber (YELLOW); URINE GLUCOSE (UA) NORMAL (Normal); URINE LEUKOCYTE ESTERASE 1+ Leu/uL (Negative); URINE PROTEIN 1+ mg/dL (NEGATIVE)
[2018-07-08 04:32] LABS: BARBITURATES, UR NEGATIVE (NEGATIVE); BENZODIAZEPINES, UR NEGATIVE (NEGATIVE)
[2018-07-08 04:59] LABS: OPIATES, UR POSITIVE (NEGATIVE); PHENCYCLIDINE, UR POSITIVE (NEGATIVE)
--- NOTE | 2018-07-08 05:41 | PCM.BM ---
<Dex Dexter - Last Filed: 07/08/18 05:39> Treatment Plan Problems - Problems identified on initial assessmt low motivation to change Date Initiated: 07/08/18 Time Initiated: 06:00 Assessment reference: NA Status: Active Defensive coping Date Initiated: 07/08/18 Time Initiated: 06:00 Assessment reference: NA Status: Active Hopelessness Date Initiated: 07/08/18 Time Initiated: 06:00 Assessment reference: NA Status: Active Treatment assets and liabiliti Patient Assests: adapts well, motivated, ADL independent, negotiates basic needs, cognitively intact Patient Liabilities: substance abuse - Milieu Protocol Maintain good personal hygiene: daily Encourage regular showers, daily Remind patient to perform daily oral care, daily Assist patient to perform ADL's Maintain personal safety: every shift Educate patient to report safety concerns to staff, every shift Monitor environment for contraband/sharps Medication safety: Monitor for expected outcome, potential side effects: every shift, Assess barriers to learning: every shift, Assess readiness for medication education: every shift <Tian Garnica - Last Filed: 07/10/18 17:18> - Diagnosis (1) Opioid use disorder, severe, dependence Status: Acute Interventions: 07/10/18 17:18 * Assess/adjust medications daily and /or as needed * See patient on an individual basis 7x/week to assess symptoms of depression * Monitor for side effects & effectiveness of medications (2) Cocaine use disorder, severe, dependence Status: Acute Interventions: 07/10/18 17:19 * Assess/adjust medications daily and /or as needed * See patient on an individual basis 7x/week to assess symptoms of depression * Monitor for side effects & effectiveness of medications (3) Major depressive disorder, recurrent severe without psychotic features Status: Acute Interventions: 07/10/18 17:19 * Assess 7x/week regarding severity of withdrawal * Educate regarding risks, benefits, side effects and alternatives of medications * Use Motivational Interviewing for abstinence * Use CBT for relapse prevention * Medication management for withdrawal symptoms * Encourage medication assisted treatment <Rosaline Carlson - Last Filed: 07/11/18 10:31> Family Contact Family involvement: Famliy/SO not involved - Goals for Treatment Patient goals for treatment: COMPLETE DETOX AND APPLY FOR LONG-TERM REHAB. Discharge/Continuing Care - Education Needs Education Needs: Patient Medication, Patient Diagnosis/Disease Process, Patient Coping Skills, Patient Anger Management skills, Patient Placement options, Patient Community resources - Discharge Discharge Criteria: No longer exhibiting s/s of withdrawal, Reduction of target symptoms Discharge to:: Substance Abuse Rehab - Treatment Team Participation Patient/Family/SO Statement: 07/11/18 10:30 "I NEED TO [facility]" Discussed with Family/SO: No Was Patient/Family/SO present at Treatment Team Meeting: Yes
[2018-07-08] MEDS ORDERED: Aluminum Hydroxide/Magnesium Hydroxide Susp (30 mL) PO PRN (15:48)
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
[2018-07-09 14:15] LABS: SQUAMOUS EPITHIAL 2 /hpf (0-5); URINE BILIRUBIN NEGATIVE (NEGATIVE); URINE BLOOD NEGATIVE (NEGATIVE); URINE CLARITY Hazy (Clear); URINE COLOR Yellow (YELLOW); URINE GLUCOSE (UA) NORMAL (Normal); URINE LEUKOCYTE ESTERASE TRACE Leu/uL (Negative); URINE PROTEIN NEGATIVE (NEGATIVE); URINE UROBILINOGEN NORMAL mg/dL (0.2-1.0)
--- NOTE | 2018-07-09 18:01 | PCM.PYCHPN ---
Psychiatric Progress Note - Psychiatric Progress Note Patient seen today, length of contact: 15 minutes Patient Chief Complaint: I am feeling little better. Can I get more methadone. Problems Identified/Issues Discussed: Patient seen, chart reviewed, case discussed with the staff. Issues related to illness and treatment were discussed with the patient and staff. Reported compliance with treatment with no adverse effect. Tolerating treatment very well. Patient reported feeling little better, still has some withdrawal symptoms including body aches, abdominal cramps, nausea, decreased sleep and headache. Mood reported as anxious. Affect appropriate. Aftercare discussed with the patient. Patient denied any delusions, auditory or visual hallucinations, no suicidal ideations or homicidal ideations at the time of the evaluation. Medical Problems: None reported Diagnostic Results: Reviewed DSM 5 Symptoms Update: Some improvement with treatment Medication Change: No Medical Record Reviewed: Yes Mental Status Examination - Cognitive Function Orientation: Person, Place, Situation, Time Memory: Intact Attention: WNL Concentration: WNL Association: WNL Fund of Knowledge: [facility] Decription of patient's judgement and insights: Fair - Mood Mood: Anxious - Affect Affect: Other - Speech Speech: Appropriate - Formal Thought Process Formal Thought Process: No Impairment Psychotic Thoughts and Behaviors: None - Suicidal Ideation Suicidal Ideation: No - Homicidal Ideation Homicidal Ideation: No Goal/Treatment Plan - Goal/Treatment Plan Need for Continued Stay: Remain at risks for inpatient hospitalization, Discharge may exacerbated symptoms, Severe functional impairment Progress Toward Problem(s) and Goals/Treatment Plan: Patient education. Supportive therapy. CBT for relapse prevention. [place] for abstinence. Continue treatment as before. Estimated Date of D/C: 07/12/18 - Smoking Cessation Smoking Cessation Initiated: Yes
--- NOTE | 2018-07-10 11:33 | CP.PCM.CON ---
History of Present Illness - History of Present Illness History of Present Illness: consult dictated #[id number] Past Patient History - Infectious Disease Hx of Infectious Diseases: None - Past Medical History & Family History Past Medical History?: Yes - Past Social History Smoking Status: Heavy Smoker > 10 Cigarettes Daily - CARDIAC Hx Hypertension: No (Patent denied.) - PULMONARY Hx Tuberculosis: No (Patent denied.) - NEUROLOGICAL Hx Seizures: Yes - HEENT Hx HEENT Problems: No - RENAL Hx Chronic Kidney Disease: No - ENDOCRINE/METABOLIC Hx Endocrine Disorders: No - HEMATOLOGICAL/ONCOLOGICAL Hx Human Immunodeficiency Virus (HIV): No (Patent denied.) - INTEGUMENTARY Hx Dermatological Problems: No - MUSCULOSKELETAL/RHEUMATOLOGICAL Hx Falls: No Hx Fractures: Yes - GASTROINTESTINAL Hx Gastrointestinal Disorders: No - GENITOURINARY/GYNECOLOGICAL Hx Sexually Transmitted Disorders: No (Patent denied.) - PSYCHIATRIC Hx Substance Use: Yes - SURGICAL HISTORY Hx Surgeries: Yes Hx Section: Yes Other/Comment: Left leg I&D, , Right shoulder metal plate was inserted. - ANESTHESIA Hx Anesthesia: Yes Hx Anesthesia Reactions: No Meds Allergies/Adverse Reactions: Allergies Allergy/AdvReac Type Severity Reaction Status Date / Time haloperidol [From Haldol] Allergy Severe PAIN Verified 07/08/18 03:26 haloperidol lactate Allergy Severe PAIN Verified 07/08/18 03:26 [From Haldol] - Medications Medications: Current Medications Al Hydrox/Mg Hydrox/Simethicone (Maalox 30 Ml) 30 ml PO TID PRN PRN Reason: Indigestion / Heartburn Clonidine HCl (Catapres) 0.1 mg PO Q6 PRN PRN Reason: s/s of withdrawal cows=5 Dicyclomine HCl (Bentyl) 10 mg PO Q6 PRN PRN Reason: Muscle spasm Gabapentin (Neurontin) 300 mg PO TID BANDAR Last Admin: 07/10/18 09:10 Dose: 300 mg Hydroxyzine HCl (Atarax) 50 mg PO Q6 PRN PRN Reason: Anxiety Last Admin: 07/09/18 18:09 Dose: 50 mg Ibuprofen (Motrin Tab) 600 mg PO Q6 PRN PRN Reason: Pain, moderate (4-7) Loperamide HCl (Imodium) 2 mg PO Q8 PRN PRN Reason: Diarrhea Methadone HCl (Methadone) 10 mg PO Q24H [facility]; Taper Stop: 07/12/18 09:59 Last Admin: 07/10/18 09:10 Dose: 10 mg Mupirocin (Bactroban Ointment) 1 gm TOP TID [facility] Nicotine (Nicoderm Cq) 1 patch TD DAILY [facility] Last Admin: 07/10/18 09:10 Dose: 1 patch Nitrofurantoin Macrocrystals (Macrobid) 100 mg PO Q12H [facility]; Protocol Stop: 07/12/18 22:00 Last Admin: 07/10/18 03:46 Dose: Not Given Ondansetron HCl (Zofran Tab) 4 mg PO Q8 PRN PRN Reason: Nausea/Vomiting Trazodone HCl (Desyrel) 100 mg PO HS PRN PRN Reason: Insomnia Last Admin: 07/09/18 21:03 Dose: 100 mg Results - Vital Signs Recent Vital Signs: Last Vital Signs Temp 98.2 F 07/10/18 09:00 Pulse 89 07/10/18 09:00 Resp 18 07/10/18 09:00 BP 106/72 07/10/18 09:00 Pulse Ox 100 07/10/18 09:00 - Labs Result Diagrams: 07/08/18 04:06 07/08/18 04:06 Labs: Laboratory Results - last 24 hr 07/09/18 14:02 Urine Color Yellow Urine Clarity Hazy Urine pH 7.0 Ur Specific [place] 1.021 Urine Protein Negative Urine Glucose (UA) Normal Urine Ketones Negative Urine Blood Negative Urine Nitrate Negative Urine Bilirubin Negative Urine Urobilinogen Normal Ur Leukocyte Esterase Trace Urine WBC (Auto) 1 Urine RBC (Auto) 1 Ur Squamous Epith Cells 2
--- NOTE | 2018-07-10 17:23 | PCM.PYCHPN ---
Psychiatric Progress Note - Psychiatric Progress Note Patient seen today, length of contact: 15 minutes Patient Chief Complaint: I am not feeling better, my sleep is disturbed and also feeling some anxiety. I need more trazodone and also Remeron 15 mg, I was taking before. Problems Identified/Issues Discussed: Patient seen, chart reviewed, case discussed with the staff. Issues related to illness and treatment were discussed with the patient and staff. Reported compliance with treatment with no adverse effect. Tolerating treatment very well. Patient reported feeling little better, still has some withdrawal symptoms including body aches, abdominal cramps, nausea, decreased sleep, anxiety and headache. We will increase the dose of trazodone to 200 mg at bedtime and also will start Remeron 15 mg at bedtime. Patient was also requesting for more methadone. We will keep the methadone dose as before. Mood reported as anxious. Affect appropriate. Aftercare discussed with the patient. Patient denied any delusions, auditory or visual hallucinations, no suicidal ideations or homicidal ideations at the time of the evaluation. Medical Problems: None reported Diagnostic Results: Reviewed DSM 5 Symptoms Update: Some improvement with treatment. Medication Change: Yes (We will increase the dose of trazodone to 200 mg and will start Remeron 15 ) Medical Record Reviewed: Yes Consults ordered or reviewed: Medical consult was ordered Mental Status Examination - Cognitive Function Orientation: Person, Place, Situation, Time Memory: Intact Attention: WNL Concentration: WNL Association: WNL Fund of Knowledge: [facility] Decription of patient's judgement and insights: Fair - Mood Mood: Anxious - Affect Affect: Other (Appropriate) - Speech Speech: Appropriate - Formal Thought Process Formal Thought Process: No Impairment Psychotic Thoughts and Behaviors: None - Suicidal Ideation Suicidal Ideation: No - Homicidal Ideation Homicidal Ideation: No Goal/Treatment Plan - Goal/Treatment Plan Need for Continued Stay: Remain at risks for inpatient hospitalization, Discharge may exacerbated symptoms, Severe functional impairment Progress Toward Problem(s) and Goals/Treatment Plan: Patient education Supportive therapy. CBT for relapse prevention. [place] for abstinence. Will increase the dose of trazodone to 200 mg at bedtime. We will start Remeron 50 mg at bedtime. Patient wants to go to [facility] for follow-up care after discharge from the hospital. Estimated Date of D/C: 07/12/18 - Smoking Cessation Smoking Cessation Initiated: Yes
--- NOTE | 2018-07-11 02:23 | CON ---
DATE: 07/10/2018 MEDICAL CONSULTATION REQUESTING PHYSICIAN: Brianna Choudhury MD REASON FOR MEDICAL CONSULTATION: Lower extremity ulcers and questionable UTI. HISTORY OF PRESENT ILLNESS: Ms. Wilcox is a 38-year-old female with history of major depressive disorder, polysubstance abuse with heroin and cocaine, has multiple admissions to the hospital, prior history of endocarditis and IVDA. Admitted to the hospital for drug detoxification. Medical consult was requested for UTI and lower extremity ulcers. When I examined the patient, the patient denies any headache or dizziness. Denies any chest pain, shortness of breath or wheezing. Denies any nausea, vomiting, abdominal pain, diarrhea or constipation. Denies any urinary complaints. Her lower extremity ulcers are in various stages of healing with the crest formation. She claims that she shoots into any vein that is visible. She has been manipulating the ulcers with the crest formation. There was no oozing or any other discharge, complaining of pain around the site. Denies any other complaints. PAST MEDICAL HISTORY: As described, substance abuse, major depressive disorder, history of endocarditis and IVDA. PAST SURGICAL HISTORY: Underwent . She underwent right shoulder metal plate surgery x3 and umbilical surgery about [id number] years ago. FAMILY HISTORY: Diabetes in the grandfather. PERSONAL HISTORY: She is single, having one child. ALLERGIES: SHE CLAIMS THAT SHE IS ALLERGIC TO HALDOL. HOME MEDICATIONS: Include trazodone 100 mg daily, Atarax 50 mg daily, nitrofurantoin 100 mg p.o. every 12 hours, Remeron 15 mg p.o. at bedtime, Bacid, Neurontin 300 mg p.o. t.i.d., Depakote 500 mg p.o. b.i.d., and clindamycin 300 mg p.o. t.i.d. REVIEW OF SYSTEMS: As described in the history of present illness. All other systems reviewed and were found to be negative. PHYSICAL EXAMINATION: GENERAL: Young female, lying in bed in no acute distress. VITAL SIGNS: Blood pressure 110/66, pulse 89, respirations 18, temperature 97.6 degrees Fahrenheit, O2 sat is 100% on room air. HEENT: Pupils equal, round and reacting to light and accommodation. Extraocular muscles intact. No icterus. No pallor. No oral thrush. No pharyngeal congestion. NECK: Supple. No JVD. LUNGS: Bilateral vesicular breath sounds. No wheezing. No rhonchi. CARDIOVASCULAR SYSTEM: S1 and S2 present, regular. ABDOMEN: Soft. Nontender. Bowel sounds present. No guarding. No rigidity. No rebound tenderness. CENTRAL NERVOUS SYSTEM: Alert, awake, and oriented x3. No focal deficits noted. EXTREMITIES: There are multiple ulcers with crest formation noted. They are ranging from 1 cm to 3 cm in size on both lower extremities below the knee with surrounding erythema and tenderness and no oozing noted. LABORATORY DATA: Labs done from 07/08/2018: WBC 8.1, hemoglobin 11.1, hematocrit 33.5, platelets 203. Sodium 137, potassium 4, chloride 101, bicarb 24, BUN 17, creatinine 1.1, glucose 139, calcium 9.6, phosphorus 5.1, magnesium 2. Total bilirubin 0.3, AST 25, ALT 9, alkaline phosphatase 70, total protein 7.8, albumin 4.3. UA: Specific gravity 1.028, protein 1+, leukocyte esterase 1+, wbc's 34. Repeat UA is negative. Urine drug screen is positive for opiates, phencyclidine, and cocaine. ASSESSMENT AND PLAN: Young female with history of major depressive disorder, polysubstance abuse, prior history of intravenous drug abuse, endocarditis. Admitted for drug detoxification. The patient is on methadone taper. Medical consult was requested for lower extremity healing ulcers with minimal cellulitic changes. We will give Bactroban cream to apply topically. We will request podiatry consult and wound care. We will hold on oral antibiotics as the patient was given multiple doses of oral antibiotics in the past. Other psychiatric medications as per Psychiatry. We will repeat labs in the morning. We will add further recommendation as per clinical course progresses. Thank you for allowing me to participate in this patient's care. We will follow with you. Cody Mayberry MD
--- NOTE | 2018-07-11 15:33 | CP.PCM.CON ---
History of Present Illness - History of Present Illness History of Present Illness: Podiatry Consult Note- Dr. Olmos 38 F with PMHx of opioid, cocaine, and tobacco abuse, depression, bipolar, hep C, endocarditis seen for bilateral lower ulcerations. Patient reports the wounds from her legs has been there for awhile. Patient reports only painful when her left leg wound gets stuck on her pants. Reports has get some discharge from her scabs that would go away after she squeeze them. Patient admits the sites of scabs are where she has injected heroin in the past. Patient denies nausea, fever, shortness of breath, chest pain or chills. PMHx: opioid, cocaine, and tobacco abuse, depression, bipolar, hep C, endocar ditis, "hole in heart" PSHx: . Right shoulder surgery, and right knee incision and drainage; umbilical surgery, patient does not know details of the surgeries FHx: father has had "a lot of heart attacks" SocHx: IVDA - opioids since she was in her 20s, 200 bags and 1 gram of cocaine since 10 y/o. Active tobacco use. Allergies: haloperidol - patient gets myalgias upon taking it Past Patient History - Infectious Disease Hx of Infectious Diseases: None - Past Medical History & Family History Past Medical History?: Yes - Past Social History Smoking Status: Heavy Smoker > 10 Cigarettes Daily - CARDIAC Hx Hypertension: No (Patent denied.) - PULMONARY Hx Tuberculosis: No (Patent denied.) - NEUROLOGICAL Hx Seizures: Yes - HEENT Hx HEENT Problems: No - RENAL Hx Chronic Kidney Disease: No - ENDOCRINE/METABOLIC Hx Endocrine Disorders: No - HEMATOLOGICAL/ONCOLOGICAL Hx Human Immunodeficiency Virus (HIV): No (Patent denied.) - INTEGUMENTARY Hx Dermatological Problems: No - MUSCULOSKELETAL/RHEUMATOLOGICAL Hx Falls: No Hx Fractures: Yes - GASTROINTESTINAL Hx Gastrointestinal Disorders: No - GENITOURINARY/GYNECOLOGICAL Hx Sexually Transmitted Disorders: No (Patent denied.) - PSYCHIATRIC Hx Substance Use: Yes - SURGICAL HISTORY Hx Surgeries: Yes Hx Section: Yes Other/Comment: Left leg I&D, , Right shoulder metal plate was inserted. - ANESTHESIA Hx Anesthesia: Yes Hx Anesthesia Reactions: No Meds Allergies/Adverse Reactions: Allergies Allergy/AdvReac Type Severity Reaction Status Date / Time haloperidol [From Haldol] Allergy Severe PAIN Verified 07/08/18 03:26 haloperidol lactate Allergy Severe PAIN Verified 07/08/18 03:26 [From Haldol] - Medications Medications: Current Medications Al Hydrox/Mg Hydrox/Simethicone (Maalox 30 Ml) 30 ml PO TID PRN PRN Reason: Indigestion / Heartburn Clonidine HCl (Catapres) 0.1 mg PO Q6 PRN PRN Reason: s/s of withdrawal cows=5 Dicyclomine HCl (Bentyl) 10 mg PO Q6 PRN PRN Reason: Muscle spasm Gabapentin (Neurontin) 300 mg PO TID [facility] Last Admin: 07/11/18 14:44 Dose: 300 mg Hydroxyzine HCl (Atarax) 50 mg PO Q6 PRN PRN Reason: Anxiety Last Admin: 07/11/18 10:11 Dose: 50 mg Ibuprofen (Motrin Tab) 600 mg PO Q6 PRN PRN Reason: Pain, moderate (4-7) Loperamide HCl (Imodium) 2 mg PO Q8 PRN PRN Reason: Diarrhea Methadone HCl (Methadone) 5 mg PO Q24H [facility]; Taper Stop: 07/12/18 09:59 Last Admin: 07/11/18 10:11 Dose: 5 mg Mirtazapine (Remeron) 15 mg PO HS [facility] Last Admin: 07/10/18 21:02 Dose: 15 mg Mupirocin (Bactroban Ointment) 0 gm TOP TID [facility] Last Admin: 07/11/18 14:45 Dose: 1 applic Nicotine (Nicoderm Cq) 1 patch TD DAILY [facility] Last Admin: 07/11/18 10:14 Dose: 1 patch Nitrofurantoin Macrocrystals (Macrobid) 100 mg PO Q12H [facility]; Protocol Stop: 07/12/18 22:00 Last Admin: 07/11/18 04:00 Dose: Not Given Ondansetron HCl (Zofran Tab) 4 mg PO Q8 PRN PRN Reason: Nausea/Vomiting Trazodone HCl (Desyrel) 200 mg PO HS PRN PRN Reason: Insomnia Last Admin: 07/10/18 21:02 Dose: 200 mg Physical Exam - Constitutional Appears: Well, Non-toxic, No Acute Distress - Extremities Exam Extremities exam: Negative for: calf tenderness Additional comments: VASC: DP and PT 2/4 bilaterally, CFT < 3 seconds x 10 digits, temperature gradient WNL, no varciosities ORTHO: pain with palpation to sites of scabbed lesions on bilaterally lower extremity DERM: open wound located on the lateral aspect of leg measuring approximately 3 cm x 2 cm, base is mixture of pink granular tissue and fibrotic tissue with wound margins begin necrotic with eschar scab noted. No tunneling, no abscess, no erythema, or streaking noted, no odor left leg scabbed lesion at anterior upper hobbs with minimal purulence expressed approximately 0.2 cc wound edges are slightly erythematous, wound base is mainly necrotic and lifted no tunneling, no fluctance appreciated NEURO: gross and protective sensation intact - Neurological Exam Neurological exam: Alert, Oriented x3 - Psychiatric Exam Psychiatric exam: Normal Affect, Normal Mood Results - Vital Signs Recent Vital Signs: Last Vital Signs Temp 97.9 F 07/11/18 12:40 Pulse 76 07/11/18 12:40 Resp 18 07/11/18 12:40 BP 109/71 07/11/18 12:40 Pulse Ox 98 07/11/18 12:40 - Labs Result Diagrams: 07/08/18 04:06 07/08/18 04:06 Assessment & Plan - Assessment and Plan (Free Text) Assessment: 38 F with PMHx of opioid, cocaine, and tobacco abuse, depression, bipolar, hep C, endocarditis seen for bilateral lower ulcerations -stable Plan: Patient seen and examined Discussed plan in detail with attending Dr. Olmos Absent leukocytosis and afebrile Wounds clinically stable One scabbed lesion with minimal purulence expressed. Cleansed with saline solution and applied bactroban. Wound culture taken. Cleansed all ulcerations with saline solution, pat dry and applied bactroban and dsd DSD applied to left lower extremity No dressing needed right right lower extremity No surgical intervention at this time by podiatry Patient to follow up withom 1 week upon discharge with Dr. Olmos Explained to patient upon discharge change dressing 2-3 days, apply bactroban and cover Patient understands
--- NOTE | 2018-07-11 23:50 | PCM.PYCHPN ---
Psychiatric Progress Note - Psychiatric Progress Note Patient seen today, length of contact: 15 minutes Patient Chief Complaint: I am feeling little better. Problems Identified/Issues Discussed: Patient seen, chart reviewed, case discussed with the staff. Issues related to illness and treatment were discussed with the patient and staff. Reported compliance with treatment with no adverse effect. Tolerating treatment very well. Patient reported feeling little better, still has some withdrawal symptoms including body aches, abdominal cramps, nausea, decreased sleep, anxiety and headache. Reported her sleep is better after increasing the dose of trazodone. Mood reported as anxious. Affect appropriate. Aftercare discussed with the patient. Patient denied any delusions, auditory or visual hallucinations, no suicidal ideations or homicidal ideations at the time of the evaluation. Medical Problems: None reported Diagnostic Results: Reviewed DSM 5 Symptoms Update: Some improvement with treatment. Medication Change: No Medical Record Reviewed: Yes Consults ordered or reviewed: Reviewed Mental Status Examination - Cognitive Function Orientation: Person, Place, Situation, Time Memory: Intact Attention: WNL Concentration: WNL Association: [facility] Fund of Knowledge: [facility] Decription of patient's judgement and insights: Fair - Mood Mood: Anxious - Affect Affect: Other (Appropriate) - Speech Speech: Appropriate - Formal Thought Process Formal Thought Process: No Impairment Psychotic Thoughts and Behaviors: None - Suicidal Ideation Suicidal Ideation: No - Homicidal Ideation Homicidal Ideation: No Goal/Treatment Plan - Goal/Treatment Plan Need for Continued Stay: Remain at risks for inpatient hospitalization, Discharge may exacerbated symptoms, Severe functional impairment Progress Toward Problem(s) and Goals/Treatment Plan: Patient education Supportive therapy. CBT for relapse prevention. PR for abstinence. Continue treatment as before. Patient wants to go [facility] for follow-up care after discharge from the hospital. Estimated Date of D/C: 07/12/18 - Smoking Cessation Smoking Cessation Initiated: Yes
--- NOTE | 2018-07-12 16:03 | CP.PCM.PN ---
Subjective - Date & Time of Evaluation Date of Evaluation: 07/12/18 Time of Evaluation: 15:58 - Subjective Subjective: Podiatry Progress Note- Dr. Olmos Patient seen and evaluated this AM with Dr. Olmos. Patient resting comfortably and in NAD. She states that the wound are tender to touch. She denies any overnight events. Denies any additional acute pedal complaints at this time. Denies nausea/vomiting/fever/shortness of breath. Objective - Vital Signs/Intake and Output Vital Signs (last 24 hours): Temp Pulse Resp BP Pulse Ox 98.2 F 94 H 18 92/61 L 100 07/12/18 12:26 07/12/18 12:26 07/12/18 12:26 07/12/18 12:26 07/12/18 12:26 - Medications Medications: Current Medications Al Hydrox/Mg Hydrox/Simethicone (Maalox 30 Ml) 30 ml PO TID PRN PRN Reason: Indigestion / Heartburn Clonidine HCl (Catapres) 0.1 mg PO Q6 PRN PRN Reason: s/s of withdrawal cows=5 Dicyclomine HCl (Bentyl) 10 mg PO Q6 PRN PRN Reason: Muscle spasm Gabapentin (Neurontin) 300 mg PO TID [facility] Last Admin: 07/12/18 13:21 Dose: 300 mg Hydroxyzine HCl (Atarax) 50 mg PO Q6 PRN PRN Reason: Anxiety Last Admin: 07/12/18 15:33 Dose: 50 mg Ibuprofen (Motrin Tab) 600 mg PO Q6 PRN PRN Reason: Pain, moderate (4-7) Loperamide HCl (Imodium) 2 mg PO Q8 PRN PRN Reason: Diarrhea Mirtazapine (Remeron) 15 mg PO HS [facility] Last Admin: 07/11/18 21:05 Dose: Not Given Mupirocin (Bactroban Ointment) 0 gm TOP TID [facility] Last Admin: 07/12/18 13:22 Dose: 1 applic Nicotine (Nicoderm Cq) 1 patch TD DAILY [facility] Last Admin: 07/12/18 09:20 Dose: 1 patch Nitrofurantoin Macrocrystals (Macrobid) 100 mg PO Q12H [facility]; Protocol Stop: 07/12/18 22:00 Last Admin: 07/12/18 15:35 Dose: 100 mg Ondansetron HCl (Zofran Tab) 4 mg PO Q8 PRN PRN Reason: Nausea/Vomiting Trazodone HCl (Desyrel) 200 mg PO HS PRN PRN Reason: Insomnia Last Admin: 07/11/18 21:04 Dose: 200 mg - Labs Labs: 07/08/18 04:06 07/08/18 04:06 - Constitutional Appears: No Acute Distress - Head Exam Head Exam: ATRAUMATIC, NORMOCEPHALIC - Extremities Exam Additional comments: VASC: DP and PT 2/4 bilaterally, CFT < 3 seconds x 10 digits, temperature gradient WNL, no varciosities ORTHO: pain with palpation to ulceration site, no gross deformities appreciated, scars appreciated to b/l extremities DERM: open wound located on the lateral aspect of leg measuring approximately 3 cm x 2 cm, base is mixture of pink granular tissue and fibrotic tissue with wound margins begin necrotic with eschar scab noted. No tunneling, no abscess, no erythema, or streaking noted, no odor. Additional L leg ulceration appreciated to upper anterior aspect of leg, fibrotic base, no purulence, no drainage, no malodor appreciated. NEURO: gross and protective sensation intact - Neurological Exam Neurological Exam: Alert, Awake, Oriented x3 - Psychiatric Exam Psychiatric exam: Normal Affect Assessment and Plan - Assessment and Plan (Free Text) Assessment: 38 F with PMHx of opioid, cocaine, and tobacco abuse, depression, bipolar, hep C, endocarditis seen for L lower extremity ulceration Plan: Patient seen and examined with attending Dr. Olmos WBC 8.1 and afebrile Local wound care; cleansed with saline, bactroban, DS No surgical intervention at this time Upon d/c patient to f/u with Dr. Olmos at [facility] Patient to follow up within 1 week upon discharge with Dr. Olmos
--- NOTE | 2018-07-12 22:36 | PCM.PYCHPN ---
Psychiatric Progress Note - Psychiatric Progress Note Patient seen today, length of contact: 15 minutes Patient Chief Complaint: "I still sick and I need help with heroin" Problems Identified/Issues Discussed: Patient was seen and chart was reviewed. Case was discussed with staff. Issued related to the illness and treatment were discussed with the patient, and issues related to illness and treatment were discussed with the patient and staff. Patient reported compliance with treatment and no adverse effects from the medications were reported. Patient is tolerating treatment well at this time. Patient denies any withdrawal symptoms such as body aches, sweating, nausea, decreased sleep or headaches at this time. Patient reports mood as "so-so", and with a labile affect. Aftercare was discussed with patient and he verbalized understanding. Patient denies any delusions, auditory/visual hallucinations, or perceptual disturbances. Patient also denies any suicidal or homicidal ideation/plan/intent at this time. Medication Change: No Medical Record Reviewed: Yes Mental Status Examination - Cognitive Function Orientation: Person, Place, Situation, Time Memory: Intact Attention: WNL Concentration: WNL Association: [facility]NL Fund of Knowledge: Poor - Mood Mood: Anxious - Affect Affect: Broad, Other (Appropriate) - Speech Speech: Appropriate - Formal Thought Process Formal Thought Process: No Impairment - Suicidal Ideation Suicidal Ideation: No - Homicidal Ideation Homicidal Ideation: No Goal/Treatment Plan - Goal/Treatment Plan Need for Continued Stay: Remain at risks for inpatient hospitalization, Discharge may exacerbated symptoms, Severe functional impairment Progress Toward Problem(s) and Goals/Treatment Plan: All risks, benefits and alternatives of the medications discussed, and the patient agreed and understood Attend group activities Supportive therapy and psychoeducation [place] for abstinence CBT for relapse prevention Encourage MAT Refer to rehab or IOP, self-help groups [place] for encouraging patient to go into [facility] to prevent relapse Encouraging her family's involvement in care post-detox for support Estimated Date of D/C: 07/14/18
[2018-07-13 17:02] VITALS: RESP 18
--- NOTE | 2018-07-14 08:21 | PCM.PYCHDC ---
Mental Status Examination - Mental Status Examination Orientation: Person Discharge Summary - Discharge Note Psychiatric History (includes Medical, Family, Personal Hx): Patient has history of 8 previous detox and 7 rehabs. Consultations:: List each consultation separately and include: 1. Reason for request. 2. Findings. 3. Follow-up Summary of Hospital Course include:: 1. Description of specific treatment plan utilized for patients during their course of treatmen. 2. Summarize the time- course for resolution of acute symptoms and/or regressed behaviors. 3. Describe issues identified and worked on during hospitalization. 4. Describe medication utilized. 5. Describe medical problems identified and treated. 6. Reassessment of suicide risk Summary of Hospital Course: She will go to [facility]. - Final Diagnosis (DSM 5) Condition upon Discharge: IMPROVED Disposition: REHAB FACILITY/REHAB UNIT
[2018-07-14 09:55] VITALS: BP 108/75; PULSE 88; TEMP 97.5; O2SAT 100
[2018-07-14] MEDS ORDERED: buPROPion 150 mg/24 Hours XL Tab PO SCH (10:00)
== END 2018-07-14 12:48 | DRG 744 ==
LOC: C.ER 02:59 → C.7D 04:55
PROVIDERS: ADMIT Psychiatry & Neurology Psychiatry; ATTEND Psychiatry & Neurology Psychiatry
PROC: HZ2ZZZZ Detoxification Services for Substance Abuse Treatment (ICD-10-PCS; principal; 2018-07-08)
PROC: HZ80ZZZ Medication Management for Substance Abuse Treatment, Nicotine Replacement (ICD-10-PCS; 2018-07-08)
PROC: GZ3ZZZZ Medication Management (ICD-10-PCS; 2018-07-08)
PROC: HZ46ZZZ Group Counseling for Substance Abuse Treatment, Psychoeducation (ICD-10-PCS; 2018-07-08)
PROC: HZ59ZZZ Individual Psychotherapy for Substance Abuse Treatment, Supportive (ICD-10-PCS; 2018-07-08)
DX: F11.23 Opioid dependence with withdrawal (principal); F33.2 Major depressive disorder, recurrent severe without psychotic features; F14.20 Cocaine dependence, uncomplicated; L97.829 Non-pressure chronic ulcer of other part of left lower leg with unspecified severity; L97.819 Non-pressure chronic ulcer of other part of right lower leg with unspecified severity; N39.0 Urinary tract infection, site not specified; F17.210 Nicotine dependence, cigarettes, uncomplicated; F41.9 Anxiety disorder, unspecified; Z91.19 Patient's noncompliance with other medical treatment and regimen; Z91.410 Personal history of adult physical and sexual abuse; Z91.411 Personal history of adult psychological abuse; Z86.79 Personal history of other diseases of the circulatory system; Z79.899 Other long term (current) drug therapy; Z98.891 History of uterine scar from previous surgery; Z88.8 Allergy status to other drugs, medicaments and biological substances; Z83.3 Family history of diabetes mellitus